=== PATIENT | male | born 1940 | race Caucasian/White ===

== ENCOUNTER 2017-01-14 05:51 | Day surgery (SDC) | payer MEDICARE ==
[2017-01-09 12:00] VITALS: BMI 33.2
[2017-01-14 06:40] LABS: INR 3.6 (<1.1)
[2017-01-14 06:41] LABS: Prothrombin Time 35.3 sec (9.0-12.0)
[2017-01-14] MEDS ORDERED: FUROSEMIDE 10 MG/ML 2 ML VIAL ONE (07:18)
[2017-01-14] MEDS ORDERED: ePHEDrine 50 MG/ML 1 ML AMP ONE (07:18)
[2017-01-14] MEDS ORDERED: PROPOFOL 10 MG/ML 20 ML VIAL IV ONE (07:18)
[2017-01-14] MEDS ORDERED: ROCURONIUM BROMIDE 10 MG/ML 10 ML VIAL IV ONE (07:18)
[2017-01-14] MEDS ORDERED: HEPARIN SODIUM,PORCINE 5,000 UNIT/ML 1 ML VIAL ONE (07:18)
[2017-01-14] MEDS ORDERED: NEOSTIGMINE 1 MG/ML 10 ML VIAL ONE (07:18)
[2017-01-14] MEDS ORDERED: GLYCOPYRROLATE 0.2 MG/ML 2 ML VIAL ONE (07:18)
[2017-01-14] MEDS ORDERED: SUCCINYLCHOLINE CHLORIDE 100 MG/5 ML SYR IV ONE (07:18)
[2017-01-14] MEDS ORDERED: HEPARIN SODIUM 1,000 UNIT/ML VIAL ONE (07:18)
[2017-01-14] MEDS ORDERED: fentaNYL (PF) 50 MCG/ML 2 ML AMP ONE (07:18)
[2017-01-14] MEDS ORDERED: IV FLUID CONTINUATION 1,000 ML IV ONE (07:18)
[2017-01-14] MEDS ORDERED: LIDOCAINE 1% INJ 10MG/ML (20 ML MDV) ONE (07:18)
[2017-01-14] MEDS ORDERED: PROTAMINE SULFATE 10 MG/ML 5 ML VIAL IV ONE (07:18)
[2017-01-14] MEDS ORDERED: MIDAZOLAM 2 MG/2 ML VIAL ONE (07:18)
[2017-01-14] MEDS ORDERED: PHENYLEPHRINE-0.9% NACL SYG 1 MG/10 ML SYRINGE ONE (07:18)
[2017-01-14] MEDS ORDERED: ONDANSETRON 4 MG/2 ML VIAL ONE (07:18)
[2017-01-14] MEDS: LIDOCAINE 2% INJ 20 MG/ML SQ ONE ×2 (08:05→08:06)
[2017-01-14] MEDS ORDERED: LIDOCAINE 2% INJ 20 MG/ML SQ ONE (08:05)
[2017-01-14] MEDS ORDERED: HEPARIN SODIUM (1,000 UNIT/ML) 1,000 UNIT in SODIUM CHLORIDE 0.9% 1,000 ML IRRIGATION ONE (08:22)
[2017-01-14] MEDS ORDERED: HEPARIN SODIUM,PORCINE/D5W PMX 25,000 UNIT in DEXTROSE/WATER 1 500ML.BAG IV ONE (10:23)
[2017-01-14] MEDS ORDERED: SODIUM CHLORIDE 0.9% 1,000 ML IV ONE (10:31)
[2017-01-14] MEDS ORDERED: ACETAMINOPHEN TAB 325 MG TAB PO PRN (13:04)
--- NOTE | 2017-01-14 13:13 | P.PCN ---
Preoperative Diagnosis: Procedure 1. Electrical cardioversion for organized atrial fibrillation 2. Ablation for typical atrial flutter, right atrium 3. Ablation for focal atrial arrhythmia anterior-septal wall, outside the right superior pulmonary vein 4. Ablation for focal atrial arrhythmia on the roof of the left atrium 5. Ablation of focal atrial arrhythmia, posterior wall outside the right-sided pulmonary veins Procedures performed Electrical cardioversion for atrial fibrillation Comprehensive diagnostic EP study CS pacing and recording Drug stimulation Intracardiac echo Left and right transseptal catheterization 3-D mapping of the right atrium Ablation for typical atrial flutter 3-D mapping of the left atrium Ablation of anteroseptal focal atrial arrhythmia Ablation of focal roof tachycardia Ablation of posterior wall atrial arrhythmia outside right pulmonary veins Plan Stop amiodarone Continue anticoagulation lifelong Start flecainide 50 mg twice daily after 4 weeks or discussed with Dr. Walker Antral isolation of the pulmonary veins in the future
[2017-01-14] MEDS ORDERED: ACETAMINOPHEN IV (For NPO) 1,000 MG in EMPTY BAG 1 BAG IVPB ONE (13:45)
[2017-01-14] MEDS ORDERED: TAMSULOSIN 0.4 MG CAP.ER.24H PO ONE (13:45)
--- NOTE | 2017-01-14 14:06 | CE ---
DATE OF SERVICE: Jus Alexis is a 76-year-old male patient of Dr. Becker and Dr. Walker who has an organized atrial arrhythmia that resembled atrial flutter. He is brought in for an atrial flutter ablation and mapping for any other arrhythmias. He has normal LV function. He has obstructive sleep apnea and is now on treatment for it. Patient was brought to the EP lab in a fasting state. Written informed consent was obtained prior to the procedure. The left shoulder areas was prepped and draped as per protocol; 1% Lidocaine was used for local anesthesia. Initially conscious sedation was used with the patient would repeatedly put his hands in the sterile field and therefore general anesthesia had to be used. The right and left groins were reprepped and venous sheaths were placed in the right and left femoral veins. Via these, diagnostic catheters were placed and intracardiac echo catheter and later the long sheath was placed as well as the coronary sinus catheter and high right atrial catheter, HIS bundle and RV catheter. The patient was in irregular atrial tachycardia of a cycle length of about 225 ms, the surface ECG showed organized atrial activity that resembled a flutter-like rhythm, positive in V1. First under anesthesia, electrical cardioversion was performed with a 360 joule biphasic shock and patient was converted to sinus rhythm. This was performed immediately after the coronary sinus was placed. Coronary sinus catheter was placed which demonstrated that this was an irregular atrial tachycardia with a cycle length of roughly about 235 ms. Following that, sinus cycle length of 97 ms, WV interval of 228 ms, QRS 104 ms, QT 500 ms, AH interval 133 ms and HV interval 39 ms. Atrial pacing was performed from the high right atrium as well as from the RV and right ventricle. First 3-D mapping of the right atrium was performed and a cavotricuspid isthmus RF line of block was made. This line was anatomically completed. Isthmus conduction time was 230 to 240 ms. Complete bidirectional block was proven with differential pacing. Following that, a second tachycardia was induced. This had the appearance of organization, the cycle length of approximately 300 ms. Entrainment mapping was performed from the right atrial isthmus and the post-pacing interval was long. In addition, the activation pattern was from the distal coronary sinus to the proximal coronary sinus. Therefore, intracardiac echocardiography was performed, intra-atrial septum was identified and left, right transseptal catheterization was performed. The RA pressure was 16 x 9 x 11 mmHg, ( ) was 36 x 11 x 19 mmHg. Irrigated-tip mapping and ablation catheter was placed in the left atrium and activation mapping was performed. Activation mapping revealed at least 3 areas of early activation which was sequentially ablated. These were 3 distinct areas and were as follows: Ablation of a roof atrial arrhythmia, RF ablation was performed along the area of early activation in the roof. This would result in further organization of the tachycardia, but it was not terminated. A 3-D mapping and RF ablation was performed on the anteroseptal aspect between the right superior pulmonary vein and the transseptal access site. A contact force of about 10 was achieved and a power of between 30 to 40 pena was used. The third atrial arrhythmias was ablated was just outside the right pulmonary veins on the posterior wall. An OG tube was placed in the esophagus and this was greater than 2 cm from the OG tube. RF ablation was also performed here. However, this only resulted in slight lengthening of the tachycardia, but there are P waves of disorganization also. Therefore, patient underwent electrical cardioversion once again. IV heparin was used through the procedure. This was reversed at the end of the procedure, all sheaths were removed and patient was transferred back to telemetry after he was extubated. RESULT: Diagnostic EP study revealed atrial fibrillation. First the patient underwent atrial flutter ablation and then focal ablation of 3 distinct atrial arrhythmia in the left atrium, one along the anterior septum of the LA, one on the roof and the third on the posterior wall of the LAD. Patient tolerated the procedure well without any acute complications. PLAN: Stop oral amiodarone. Patient has a history of emphysema. Next month. I will start him on flecainide 50 mg twice daily as per ( ). Anticoagulation is to continue lifelong, minimize alcohol consumption, continue sleep apnea management and antral isolation of the pulmonary veins and possibly roof line.
--- NOTE | 2017-01-14 14:12 | LTR ---
January 14, 2017 RE: Jus Alexis Dear Carlton; I had the pleasure of seeing Mr. Alexis in electrophysiology followup. Mr. Alexis underwent atrial flutter ablation and ablation of atrial tachycardias in the left atrium; however, he does have atrial fibrillation and I will schedule him for a pulmonary vein isolation procedure in the next 2 months. I also discussed his care with Dr. Walker, who is his primary knowledge management consultant and I would recommend stopping amiodarone since he also has emphysema. Next month, we will start him on low dose flecainide. His LV function is normal. He will also remain on anticoagulation lifelong. In addition, I have suggested that he also minimize his alcohol consumption and continue with sleep apnea treatment with CPAP mask. If you have any questions, please do not hesitate to give me a call. Thank you for entrusting me with the care of your patient. Warm regards. Sincerely, ISABEL GALLEGOS MD
[2017-01-14 14:26] VITALS: RESP 16
[2017-01-14] MEDS: ATENOLOL 50 MG TAB PO ONE ×2 (15:59→17:30)
[2017-01-14] MEDS: HYDROcodone/APAP 5-325MG 1 EACH TAB PO PRN ×2 (16:03→21:48)
[2017-01-14] MEDS: SODIUM CHLORIDE 0.9% 1,000 ML IV SCH (16:03)
[2017-01-14] MEDS ORDERED: LISINOPRIL 10 MG TAB PO SCH (18:30)
[2017-01-14] MEDS: amLODIPine 5 MG TAB PO SCH (21:48)
[2017-01-15] MEDS: SODIUM CHLORIDE 0.9% 1,000 ML IV SCH (04:47)
[2017-01-15 06:53] LABS: INR 3.1 (<1.1); Prothrombin Time 30.1 sec (9.0-12.0)
[2017-01-15 07:58] VITALS: BP 123/68; PULSE 73; TEMP 97.7
--- NOTE | 2017-01-15 08:12 | P.DS ---
Providers Attending physician: Facundo Gillis Primary care physician: [facility] Course: Patient is doing well today. He underwent atrial flutter ablation and ablation of multiple atrial arrhythmias in the left atrium yesterday under general anesthesia did he does have a sore throat. He denies any chest discomfort or undue shortness of breath. He is sitting comfortably in bed eating breakfast Heart sounds are normal Breath sounds are normal Groin is healed well without any hematoma or bleeding Impression Atrial flutter Atrial tachycardia Atrial fibrillation Obstructive sleep apnea Patient had low oxygen levels under anesthesia possibly secondary to lung disease Plan Discontinue amiodarone. This was discussed with the patient, his family as well as Dr. VC Walker His LV function is normal and we will start flecainide 50 mg twice daily after about a month My plan is to proceed with A. fib ablation with cryoablation. He has a large left atrium of about 5.8 cm by intracardiac echo, measurements made from the fossa ovalis to the left-sided veins His pulmonary veins are about 16-18 mm on the right side, each. On the left side he has common veins with a diameter of about 22 mm. Therefore plan to use a 28 mm cryo- balloon. He will remain on anticoagulation lifelong sleep apnea management, minimal alcohol consumption Patient Condition at Discharge: Stable Plan - Discharge Summary Discharge Medication List Lisinopril [Lisinopril] 10 mg PO PC-SUPPER 06/28/15 [History] RX: Atenolol 100 mg PO ONCE 06/28/15 [History] RX: amLODIPine [Norvasc] 5 mg PO BID 01/14/17 [History] Silodosin [Rapaflo] 8 mg PO ONCE 01/14/17 [History] Warfarin Sodium [Coumadin] 2.5 mg PO MOFR 01/14/17 [History] Warfarin Sodium [Coumadin] 5 mg PO SUTUWETHSA 01/14/17 [History] Activity/Diet/Wound Care/Special Instructions: Post EP study - Ablation instructions 1. Keep access sites dry for 2 days. 2. No heavy lifting or straining for 2 days. 3. Avoid bending the hips repeatedly for 2 days. 4. You may go up and down stairs slowly Call if the following is noted 1. Bleeding, increasing swelling or pain at the access sites. 2. Increasing chest discomfort, especially upon taking a deep breath. 3. Increasing shortness of breath, at rest or with exertion. 4. Undue cough / phlegm 5. Difficulty or pain while swallowing. 6. Pain or change in color in the extremities. 7. Fever, chills, rigors. 8. Increasing headache or neurologic symptoms. 9. Dizziness, fainting, palpitations Stop amiodarone completely continue all other medications including warfarin Discharge Disposition: HOME SELF-CARE
[2017-01-15] MEDS: amLODIPine 5 MG TAB PO SCH (08:31)
[2017-01-15] MEDS ORDERED: WARFARIN 5 MG TAB PO SCH (18:00)
[2017-01-24] MEDS ORDERED: WARFARIN 2.5 MG TAB PO SCH (18:00)
== END 2017-01-15 13:33 | disposition home or self-care (01) ==
LOC: CATHEP 05:51 → 3OBS 13:16 → CATHEP 01-15 13:33
PROVIDERS: ATTEND Internal Medicine Clinical Cardiac Electrophysiology
DX: I48.3 Typical atrial flutter (principal); I48.1 Persistent atrial fibrillation; I47.1 Supraventricular tachycardia; Z79.01 Long term (current) use of anticoagulants; I11.0 Hypertensive heart disease with heart failure; I50.30 Unspecified diastolic (congestive) heart failure; G47.33 Obstructive sleep apnea (adult) (pediatric); Z86.711 Personal history of pulmonary embolism; Z99.89 Dependence on other enabling machines and devices; N40.0 Benign prostatic hyperplasia without lower urinary tract symptoms; Q61.01 Congenital single renal cyst; Z79.899 Other long term (current) drug therapy; Z88.5 Allergy status to narcotic agent; Z88.8 Allergy status to other drugs, medicaments and biological substances
CPT/HCPCS: 93462; 93623; 93662; 93613; 93653; 93655 ×2; 85347; 85610 ×2; C1894 ×2; C1769 ×3; C1893 ×2; C1730 ×3; C1759; C1732; J2001 ×2; J2250; J2720; J1644 ×3; J1940; J2710; J2405; J3010; J0131; J2370; J0330; J2704

== ENCOUNTER → 2017-02-06 | Outpatient (CLI) | payer MEDICARE ==
--- NOTE | 2017-02-06 18:20 | PN ---
DATE OF SERVICE: 02/06/2017 This patient is a 77-year-old gentleman who has been followed in the sleep center for treatment of severe obstructive sleep apnea-hypopnea syndrome. Patient continues to use his BiPAP equipment every night without significant problems, except recently he started to develop some dryness in his mouth. He believes that he opens his mouth. His weight is 2 pounds less than during his last visit. Recently patient again developed episodes of atrial fibrillation, had cardiac ablation on January 14, 2017. MEDICATIONS: 1. Flecainide. 2. Symbicort. 3. Amlodipine. 4. Coumadin. 5. Lisinopril. PHYSICAL EXAMINATION: Patient in no distress. VITAL SIGNS: BP 125/81, HR 82, pulse 82, RR 16. Height 5 feet 7 inches. Weight 237. BMI 37.1. Temperature 98.1. Oxygen saturation at room air 95%. HEENT: PERRLA, EOMI. Evaluation of oropharynx showed tongue protrudes midline; extremely low position of soft palate. NECK: Supple. No JVD. Thyroid is not palpable. LUNGS: Clear to percussion and to auscultation. Good air exchange. No wheezing or rhonchi. HEART: S1, S2 sounds regular. ABDOMEN: Obese. EXTREMITIES: No edema. REVIEW MANAGER: Awake, alert, and oriented x3. Cranial nerves 2 to 7 intact. There is no fasciculation or atrophy noted. No focal deficits observed. IMPRESSION: 1. Obstructive sleep apnea-hypopnea syndrome. Patient continues to use BiPAP equipment every night, benefitting from treatment. 2. Obesity; body mass index 37.1. 3. Recent episodes of atrial fibrillation. 4. Status post cardiac ablation on 01/14/17. 5. Hypertension. 6. Hyperlipidemia. 7. Status post bilateral knee replacement. 8. Status post tonsillectomy. PLAN: 1. Continue treatment with BiPAP every night. 2. Prescription for chin strap. 3. Losing weight. 4. Sleep hygiene with regular time in bed for at least 8 hours. 5. Will get reading from his machine. Thank you very much for allowing me to participate in the management of your patient. Sincerely, Damian Ang MD, PhD, FAASM. Diplomat of [employer], Sleep Medicine Board by [employer], [employer]
== END | disposition home or self-care (01) ==
LOC: SLEEP 13:11
PROVIDERS: ATTEND Internal Medicine
DX: G47.33 Obstructive sleep apnea (adult) (pediatric) (principal); E66.9 Obesity, unspecified; Z68.37 Body mass index [BMI] 37.0-37.9, adult; I48.91 Unspecified atrial fibrillation; E78.5 Hyperlipidemia, unspecified; I10 Essential (primary) hypertension; Z79.01 Long term (current) use of anticoagulants; Z79.899 Other long term (current) drug therapy; Z96.653 Presence of artificial knee joint, bilateral; Z98.890 Other specified postprocedural states

== ENCOUNTER 2017-03-17 05:58 | Day surgery (SDC) | payer MEDICARE ==
[2017-03-13 17:43] VITALS: BMI 33.2
[2017-03-17] MEDS ORDERED: MIDAZOLAM 2 MG/2 ML VIAL IV PRN (06:19)
[2017-03-17] MEDS ORDERED: SODIUM CHLORIDE 0.9% 1,000 ML IV SCH (06:19)
[2017-03-17 07:01] LABS: INR 2.3 (<1.1); Prothrombin Time 22.3 sec (9.0-12.0)
[2017-03-17] MEDS ORDERED: PHENYLEPHRINE-0.9% NACL SYG 1 MG/10 ML SYRINGE ONE (07:30)
[2017-03-17] MEDS ORDERED: PROPOFOL 10 MG/ML 20 ML VIAL IV ONE (07:30)
[2017-03-17] MEDS ORDERED: HEPARIN SODIUM 1,000 UNIT/ML VIAL ONE (07:30)
[2017-03-17] MEDS ORDERED: SUCCINYLCHOLINE CHLORIDE VIAL 200 MG/10 ML VIAL IV ONE (07:30)
[2017-03-17] MEDS ORDERED: ISOPROTERENOL 250 MCG/1.25 ML SYR IV ONE (07:30)
[2017-03-17] MEDS ORDERED: FUROSEMIDE 10 MG/ML 2 ML VIAL ONE (07:30)
[2017-03-17] MEDS ORDERED: HEPARIN SODIUM,PORCINE 5,000 UNIT/ML 1 ML VIAL ONE (07:30)
[2017-03-17] MEDS ORDERED: ePHEDrine 50 MG/ML 1 ML AMP ONE (07:30)
[2017-03-17] MEDS ORDERED: MIDAZOLAM 2 MG/2 ML VIAL ONE (07:30)
[2017-03-17] MEDS ORDERED: PROTAMINE SULFATE 10 MG/ML 5 ML VIAL IV ONE (07:30)
[2017-03-17] MEDS ORDERED: fentaNYL (PF) 50 MCG/ML 2 ML AMP ONE (07:30)
[2017-03-17] MEDS ORDERED: LIDOCAINE 1% INJ 10MG/ML (20 ML MDV) ONE (07:30)
[2017-03-17] MEDS ORDERED: LIDOCAINE 2% INJ 20 MG/ML SQ ONE (08:17)
[2017-03-17] MEDS ORDERED: HEPARIN SODIUM,PORCINE/D5W PMX 25,000 UNIT in DEXTROSE/WATER 1 500ML.BAG IV ONE (09:00)
[2017-03-17] MEDS ORDERED: LACTATED RINGERS 1,000 ML IV ONE (10:00)
[2017-03-17] MEDS ORDERED: IOHEXOL 350 MG/ML 100 ML BOTTLE INJ ONE (11:23)
--- NOTE | 2017-03-17 11:43 | P.PCN ---
Preoperative Diagnosis: Procedures performed ([facility] - CRYO Ablation) Invasive hemodynamic monitoring while general anesthesia, right femoral arterial line for monitoring and sampling Comprehensive diagnostic EP study with attempted arrhythmia induction CS pacing and recording Drug infusion Catheter the mapping of the tachycardia (NOT 3D mapping) Intracardiac echocardiography Pulmonary vein isolation with transseptal and comprehensive EPS, [id number] Procedure details Patient was brought to the EP lab in a fasting state. Written informed consent was obtained prior to the procedure. Procedure performed under general anesthesia After initial muscle relaxant use, muscle relaxants were not given thereafter in order to assess phrenic nerve during procedure Patient prepped and draped as per protocol Full cryo-set up with standard preparation of the cryoablation tools done Femoral Venous access obtained on the right and left groins Sheaths placed Diagnostic catheters for the high right atrium, phrenic nerve stimulation and pacing, His bundle, RV and coronary sinus placed Intracardiac echo catheter placed Long sheath placed in the right atrium Left and right transseptal catheterization performed under intracardiac echo guidance Intravenous heparin with aCT above 300 Later, catheter positioning and balloon positioning under intracardiac echo Baseline measurements Sinus cycle length 798 ms, QRS 97 ms, AH 103 ms HV 73 ms Comprehensive diagnostic EP study with drug infusion Atrial pacing performed from the high right atrium and the coronary sinus, RV pacing from the mid RV septum AV node Wenckebach block less than 300, VA Wenckebach block 390 ms AV node Wenckebach block via coronary sinus 350 ms Transseptal catheterization performed RA pressure 18/8/11 LA pressure is 26/9/18 Transseptal catheterization performed with standard sheath. The cryoablation sheath was then placed with an over the wire exchange without any acute complications. All 4 pulmonary veins were isolated in the following sequence: Left superior followed by left inferior followed by right superior followed by right inferior The cryo-ablation balloon was placed at the os of each vein 1.5 mL of IV dye was injected to confirm an occluded vein Goal during cryoablation was to achieve -30C in the first 30 seconds. If not the balloon was repositioned to obtain this result After completion of Cryoblation with durations from 180-240 seconds, entrance block was confirmed with the Attain circular catheter in a roving fashion around the antrum of the pulmonary veins Phrenic nerve pacing was performed from the SVC, right innominate vein area and diaphragm voltage was monitored as well as manually Total amount of dye 60 mL Left superior pulmonary vein First cryoablation Duration of cryoablation lesion 180 -30C achieved at 28 seconds -40C achieved at 86 seconds Minimum temperature achieved -43C Thaw time 4.9 seconds Second cryoablation Duration of cryoablation lesion 180 -30C achieved at 30 -40C achieved at 54 seconds Minimum temperature achieved and is 55C Thaw time 14 seconds Vein isolated, yes Left inferior pulmonary vein First cryoablation Duration of cryoablation lesion 180 seconds -30C achieved at 34 -40C achieved at 123 Minimum temperature achieved -41C Thaw time 4 seconds Repeat cryo of 120 seconds duration. Prematurely terminated since -40C not achieved Third cryoablation Duration of cryoablation lesion 180 seconds -30C achieved at 34 -40C achieved at 56 seconds Minimum temperature achieved -54C Thaw time 20 seconds Vein isolated yes Right superior pulmonary vein, during phrenic nerve pacing Single cryoablation Duration of cryoablation lesion to 140 seconds -30C achieved at 25 seconds -40C achieved at 34 seconds Minimum temperature achieved -62C Thaw time 21 seconds Vein isolated yes Also a middle vein that was simultaneously ablated and isolated Right inferior pulmonary vein, during phrenic nerve pacing First cryoablation Duration of cryoablation lesion 60 seconds prematurely terminated Suboptimal drop in temperature Second cryoablation Duration of cryoablation lesion 240 seconds -30C achieved at 34 seconds -40C achieved at 70 seconds Minimum temperature achieved -46C Thaw time 9 seconds Vein isolated yes Patient came in atrial tachycardia, slow atrial tachycardia this terminated after this cryoablation and he was in sinus rhythm At the end of the procedure the Achieve catheter was once again used to check for entrance block Phrenic nerve stimulation was performed to confirm diaphragmatic stimulation the end of the procedure Cine fluoroscopy was performed at the very end of the procedure to confirm movement of both diaphragms with inspiration and expiration At the end of the procedure the patient was extubated Heparin was reversed Venous sheaths were removed and hemostasis assured Result Successful pulmonary vein isolation using cryo-ablation Complete entrance block in all 4 veins confirmed No evidence for phrenic nerve injury Temperature monitoring performed for the left-sided esophagus, lowest temperature was never below 34C Anesthesia: GETA Condition: stable Disposition: floor
[2017-03-17] MEDS ORDERED: ACETAMINOPHEN TAB 325 MG TAB PO PRN ×2 (11:44→16:55)
[2017-03-17] MEDS ORDERED: HYDROcodone/APAP 5-325MG 1 EACH TAB PO PRN (11:44)
[2017-03-17] MEDS ORDERED: ACETAMINOPHEN IV (For NPO) 1,000 MG in EMPTY BAG 1 BAG IVPB ONE (15:00)
[2017-03-17 15:56] LABS: Glucose,Whole Blood 97 mg/dL (75-99)
[2017-03-17] MEDS ORDERED: WARFARIN 2.5 MG TAB PO SCH (18:00)
[2017-03-17] MEDS ORDERED: LISINOPRIL 10 MG TAB PO SCH (18:30)
[2017-03-17 19:11] VITALS: RESP 18
[2017-03-17] MEDS: LACTATED RINGERS 1,000 ML IV SCH (22:04)
[2017-03-17] MEDS ORDERED: TAMSULOSIN 0.4 MG CAP.ER.24H PO SCH (22:15)
[2017-03-17] MEDS: amLODIPine 5 MG TAB PO SCH (22:19)
[2017-03-18] MEDS: LACTATED RINGERS 1,000 ML IV SCH (05:33)
[2017-03-18 06:38] LABS: CH 31.6; CHCM 33.7; HCT 43.7 % (39.0-53.0); HGB 14.2 gm/dL (13.0-17.5); MCH 30.6 pg (25.0-35.0); MCHC 32.5 g/dL (31.0-37.0); MCV 94.2 fL (80.0-100.0); Mean Platelet Volume 6.4; RBC 4.64 m/uL (4.30-5.90); RDW 13.3 % (11.5-15.5); WBC 6.6 k/uL (3.8-10.6)
[2017-03-18 06:51] LABS: INR 2.5 (<1.1); Prothrombin Time 23.9 sec (9.0-12.0)
[2017-03-18] MEDS ORDERED: ATENOLOL 50 MG TAB PO SCH (09:00)
[2017-03-18] MEDS: amLODIPine 5 MG TAB PO SCH (09:15)
--- NOTE | 2017-03-18 12:50 | DS ---
DATE OF ADMISSION: 03/17/2017 DATE OF DISCHARGE: Mr. Alexis is doing well post atrial fibrillation. He underwent cryoablation of the pulmonary veins. He came in with an atrial tachycardia and when the right inferior vein was isolated, the atrial tachycardia terminated and he went back to sinus rhythm. He has done very well since. He has a mildly prolonged AL interval on 12-lead ECG, but otherwise ECG is normal. He had a little sore throat yesterday, but has no throat pain today. No chest discomfort. No breathing trouble. No dizziness, lightheadedness. No palpitations. His telemetry strips are normal overnight. The 12-lead ECG today is normal. Blood pressure is normal, 130/67 mmHg, pulse rate is in the 70s. He is afebrile, 98.4 degrees Fahrenheit. Head and neck examination is normal. Heart sounds are normal. Breath sounds are normal. No rhonchi. No crackles. Extremities are warm, no edema. IMPRESSION: 1. History of atrial flutter. 2. History of atrial fibrillation and atrial tachycardia, status post successful cryoablation and termination of atrial tachycardia during cryoablation of the right inferior vein. 3. Hypertension. 4. Mildly prolonged AL. 5. Intolerance to antiarrhythmic drugs such as even low dose flecainide. PLAN: Stop flecainide completely. Continue anticoagulation. Continue beta blockers. Follow with Dr. Walker in a week's time.
[2017-03-18 13:01] VITALS: BP 116/68; PULSE 73; TEMP 98.9
[2017-03-18] MEDS ORDERED: WARFARIN 5 MG TAB PO SCH (18:00)
== END 2017-03-18 14:48 | disposition home or self-care (01) ==
LOC: CATHEP 05:58 → 6SEL 11:15 → CATHEP 03-18 14:48
PROVIDERS: ATTEND Internal Medicine Clinical Cardiac Electrophysiology
DX: I47.1 Supraventricular tachycardia (principal); I48.0 Paroxysmal atrial fibrillation; I48.92 Unspecified atrial flutter; Z79.01 Long term (current) use of anticoagulants; I10 Essential (primary) hypertension; Z79.899 Other long term (current) drug therapy; Z88.5 Allergy status to narcotic agent; Z88.8 Allergy status to other drugs, medicaments and biological substances
CPT/HCPCS: 85347; 93623 ×2; 93662 ×2; 93609 ×2; 93656 ×2; 84132; 85027; 85610 ×2; C1894 ×3; C1769 ×2; C1730 ×4; C1759; C1893; C1733; C1766; J2001 ×2; J2250; J0330; J2720; J1644 ×3; J1940; Q9967; J3010; J2370; J2704

== ENCOUNTER → 2017-04-03 | Outpatient (CLI) | payer MEDICARE ==
--- NOTE | 2017-04-03 16:00 | PN ---
DATE OF SERVICE: 04/03/2017 This patient is a 77-year-old gentleman who has been followed in the sleep center for treatment of obstructive sleep apnea-hypopnea syndrome. I saw this patient 3 months ago. At that time he had problems with usage of the machine related to opening his mouth, dryness in the mouth and awakenings. Chin strap was added. He does not have any problem at present with using his BiPAP machine. I checked his BiPAP unit. Pressure is 13/9 cm of water. Patient demonstrated 100% compliance with usage of the machine for more than 4 hours 30 out of 30 nights. Average usage per night is 8.6 hours. Leak is up to 13 L/minute, which is acceptable. Total apnea-hypopnea index is 2.1 for the last month, which is normal. Recently patient had cardiac ablation for atrial fibrillation and flutter. MEDICATIONS: 1. Atenolol. 2. Amlodipine. 3. Lisinopril. 4. Warfarin. 5. Tamsulosin. [place] Sleepiness Scale is 4. PHYSICAL EXAMINATION: Patient in no distress. VITAL SIGNS: BP 142/82, HR 72, RR 16. Height 5 feet 7 inches. Weight 234. BMI 36.6. Temperature 98.2. Oxygen saturation at room air 95%. HEENT: PERRLA, EOMI. Evaluation of oropharynx showed tongue protrudes midline; low position of soft palate. NECK: Supple. No JVD. Thyroid is not palpable. LUNGS: Clear to percussion and to auscultation. Good air exchange. No wheezing or rhonchi. HEART: S1, S2 regular. No murmurs, gallops or rubs. ABDOMEN: Slightly obese. EXTREMITIES: No clubbing or cyanosis. PROFESSOR OF LAW: Awake, alert, and oriented x3. Cranial nerves 2 to 7 intact. There is no fasciculation or atrophy noted. No focal deficits observed. IMPRESSION: 1. Obstructive sleep apnea/hypopnea syndrome, under control with BiPAP at 13/9 cm of water. Patient demonstrated 100% compliance with treatment, benefiting from treatment. No problem with treatment at the present time. 2. Obesity. 3. Hypertension. 4. Hyperlipidemia. 5. History of atrial flutter and atrial fibrillation, status post cardiac ablation. Regular heart tones at present. 6. Status post bilateral knee replacement. 7. Status post tonsillectomy. PLAN: 1. Patient will continue to use BiPAP equipment every night for the whole night. 2. Continue losing weight. Patient has lost 3 pounds since his previous visit. 3. Sleep hygiene with regular time in bed for at least 8 hours. 4. No driving if feeling any sleepiness. 5. Follow-up visit in one year; earlier if patient has any problems. Thank you very much for allowing me to participate in the management of your patient. Sincerely, Damian Ang MD, PhD, FAASM. Diplomat of [place] [employer], Sleep Medicine Board by [employer], [place] [employer]
== END | disposition home or self-care (01) ==
LOC: SLEEP 13:08
PROVIDERS: ATTEND Internal Medicine
DX: G47.33 Obstructive sleep apnea (adult) (pediatric) (principal); E66.9 Obesity, unspecified; Z68.36 Body mass index [BMI] 36.0-36.9, adult; I10 Essential (primary) hypertension; E78.5 Hyperlipidemia, unspecified; Z79.899 Other long term (current) drug therapy; Z79.01 Long term (current) use of anticoagulants

== ENCOUNTER 2018-01-01 06:46 | Day surgery (SDC) | payer MEDICARE ==
[2017-12-30 09:04] VITALS: BMI 33.2
[2018-01-01 07:28] LABS: Basophils # (A) 0.1 k/uL (0-0.2); Basophils % (A) 1 %; Eosinophils # (A) 0.4 k/uL (0-0.7); Eosinophils % (A) 8 %; HCT 49.1 % (39.0-53.0); HGB 15.9 gm/dL (13.0-17.5); Lymphocytes # (A) 1.2 k/uL (1.0-4.8); Lymphocytes % (A) 22 %; MCH 29.8 pg (25.0-35.0); MCHC 32.3 g/dL (31.0-37.0); MCV 92.1 fL (80.0-100.0); Mean Platelet Volume 6.7; Monocytes # (A) 0.4 k/uL (0-1.0); Monocytes % (A) 8 %; Neutrophils # (A) 3.2 k/uL (1.3-7.7); Neutrophils % (A) 60 %; Platelet Count 209 k/uL (150-450); RBC 5.33 m/uL (4.30-5.90); RDW 13.1 % (11.5-15.5); WBC 5.3 k/uL (3.8-10.6)
[2018-01-01 07:36] LABS: INR 2.6 (<1.2); Prothrombin Time 23.5 sec (9.0-12.0)
[2018-01-01 07:42] LABS: Anion Gap 13 mmol/L; Blood Urea Nitrogen 14 mg/dL (9-20); Calcium 9.3 mg/dL (8.4-10.2); Carbon Dioxide 25 mmol/L (22-30); Chloride 106 mmol/L (98-107); Glucose 107 mg/dL (74-99); Potassium 3.9 mmol/L (3.5-5.1); Sodium 144 mmol/L (137-145)
[2018-01-01] MEDS ORDERED: PHENYLEPHRINE-0.9% NACL SYG 1 MG/10 ML SYRINGE ONE (08:02)
[2018-01-01] MEDS ORDERED: HEPARIN SODIUM,PORCINE 10,000 UNIT/ML 1 ML VIAL ONE (08:02)
[2018-01-01] MEDS ORDERED: ISOPROTERENOL 250 MCG/1.25 ML SYR IV ONE (08:02)
[2018-01-01] MEDS ORDERED: MIDAZOLAM 2 MG/2 ML VIAL ONE (08:02)
[2018-01-01] MEDS ORDERED: PROPOFOL 10 MG/ML 20 ML VIAL IV ONE ×2 (08:02)
[2018-01-01] MEDS ORDERED: NEOSTIGMINE 1 MG/ML 10 ML VIAL ONE (08:02)
[2018-01-01] MEDS ORDERED: VECURONIUM 10 MG VIAL IV ONE (08:02)
[2018-01-01] MEDS ORDERED: FUROSEMIDE 10 MG/ML 2 ML VIAL ONE (08:02)
[2018-01-01] MEDS ORDERED: GLYCOPYRROLATE 0.2 MG/ML 2 ML VIAL ONE (08:02)
[2018-01-01] MEDS ORDERED: PROTAMINE SULFATE 10 MG/ML 5 ML VIAL IV ONE (08:02)
[2018-01-01] MEDS ORDERED: fentaNYL (PF) 50 MCG/ML 2 ML AMP ONE (08:02)
[2018-01-01] MEDS ORDERED: SODIUM CHLORIDE 0.9% 1,000 ML IV ONE (08:04)
[2018-01-01] MEDS ORDERED: LIDOCAINE 2% INJ 20 MG/ML SQ ONE (08:40)
[2018-01-01] MEDS ORDERED: HEPARIN SOD,PORK IN 0.45% NACL 25,000 UNIT in 0.45% NACL 1 500ML.BAG IV ONE (08:45)
[2018-01-01] MEDS ORDERED: HEPARIN SODIUM (1,000 UNIT/ML) 1,000 UNIT in SODIUM CHLORIDE 0.9% 1,000 ML IRRIGATION ONE (10:00)
[2018-01-01] MEDS ORDERED: ACETAMINOPHEN TAB 325 MG TAB PO PRN (13:18)
[2018-01-01] MEDS ORDERED: HYDROcodone/APAP 5-325MG 1 EACH TAB PO PRN (13:18)
[2018-01-01] MEDS ORDERED: LACTATED RINGERS 1,000 ML IV ONE (13:32)
[2018-01-01] MEDS ORDERED: ACETAMINOPHEN IV (For NPO) 1,000 MG in EMPTY BAG 1 BAG IVPB ONE (15:00)
--- NOTE | 2018-01-01 16:48 | P.PCN ---
Preoperative Diagnosis: Indication for the procedure 77-year-old male patient who presented with an atrial tachycardia following pulmonary vein isolation about 10-12 months back Symptomatic, RVR despite antiarrhythmic drug therapy failed antiarrhythmic drug therapy Procedures performed Hemodynamic monitoring and sampling via left femoral arterial cannula/sheaths Compressive diagnostic EP study with attempted arrhythmia induction CS pacing and recording Programmed stimulation following Isuprel Intracardiac echo Left right transseptal catheterization 3-D mapping PVI Atrial flutter ablation, right atrium, counterclockwise Focal atrial tachycardia ablation left atrium Procedure details Patient was brought to the EP lab in a fasting state. Written informed consent was obtained prior to the procedure. Both groins were prepped and draped as a protocol. 2 venous sheaths in the right femoral vein 1 venous sheaths in the left femoral veins 1 femoral arterial sheath in the femoral artery Diagnostic catheters and the high right atrium coronary sinus His bundle RV Pentaray mapping catheter in the right atrium, coronary sinus and left atrium Mapping and ablation catheter in the right atrium and in the left atrium Patient was in the tachycardia at start of the study tachycardia cycle length 230 ms, upright T waves in lead V1 him a upright in inferior leads Eccentric activation pattern in the coronary sinus Intracardiac echocardiography performed. 3-D mapping of the right atrium tricuspid valve he will tricuspid isthmus and left atrium performed Activation 3-D mapping of the right atrium performed Entrainment mapping from the right atrial isthmus, post-pacing interval at different cycle lengths performed, PPI minus TCL about 50 ms Consistent with atrial flutter Scar map of the isthmus revealed recovery of old age A complete RF line of block was made Interrogated at 100%. No anatomic gap in the RF line Increase in cycle length about 270-280 ms consistent with 2 simultaneous atrial tachycardias Repeat 3-D mapping of the right atrium and the coronary sinus revealed an early broad septal activation, consistent with a left atrial tachycardia. Activation in the Coronary sinus was late. Left and right transseptal catheterization performed Right atrial pressures 13/10/11 mmHg Left atrial pressures 24/3/12 mmHg Activation mapping of the left atrium performed with a Pentaray catheter Small,bur broad earliest activation outside the left atrial appendage along the anterior border. The left atrial appendage was carefully mapped to exclude reentry. There was no evidence for reentry in the roof or on the mitral annulus. Interrogated with conventional techniques. This was earlier in the earliest CS electrograms by about 118 ms. Fractionated signal did RF ablation at the site resulted in abrupt termination. RF ablation applied along all the early sites with good contact force, 25-30 W temperature Patient was in sinus rhythm thereafter 3-D mapping of the pulmonary veins performed. Voltage map performed in the pulmonary veins Exit block confirmed in all veins Noted in the right inferior pulmonary vein posteriorly at and just below the wilfredo Pulmonary vein isolation completed, RF ablation 25 W good contact force Complete isolation of the vein achieved EP testing performed on and off Isuprel Sinus node recovery times at 605 100 ms were 1106 and 1192 ms. Corresponding corrected sinus node recovery times normal AV node Wenckebach block for 90 ms Burst stimulation from the coronary sinus 500 down to 250 ms On Isuprel AV node Wenckebach block improved to 270 ms. VA Wenckebach block 310 ms No atrial fibrillation or atrial tachycardia or atrial flutter induced with rapid atrial pacing and burst pacing Result Typical atrial flutter and simultaneous focal atrial tachycardia outside the anterior border of the left atrial appendage Pulmonary vein isolation, successful Anesthesia: GETA Disposition: observation
[2018-01-01] MEDS ORDERED: ATENOLOL 50 MG TAB PO STA (17:20)
[2018-01-01] MEDS: SODIUM CHLORIDE 0.9% 1,000 ML IV SCH (17:48)
[2018-01-01] MEDS: LACTATED RINGERS 1,000 ML IV SCH (17:48)
[2018-01-01] MEDS ORDERED: WARFARIN 7.5 MG TAB PO SCH (18:00)
[2018-01-01] MEDS ORDERED: LISINOPRIL 10 MG TAB PO SCH (18:30)
[2018-01-01] MEDS: amLODIPine 5 MG TAB PO SCH (20:09)
[2018-01-01] MEDS ORDERED: TAMSULOSIN 0.4 MG CAP.ER.24H PO SCH (21:00)
[2018-01-01] MEDS ORDERED: BENZOCAINE/MENTHOL LOZENG 1 EACH LOZENGE MUCOUS MEM PRN (21:55)
[2018-01-02] MEDS: SODIUM CHLORIDE 0.9% 1,000 ML IV SCH (05:05)
[2018-01-02] MEDS: LACTATED RINGERS 1,000 ML IV SCH (05:05)
[2018-01-02 07:51] VITALS: RESP 16
--- NOTE | 2018-01-02 07:58 | P.DS ---
Providers Attending physician: Facundo Gillis Primary care physician: [facility] Course: Patient is doing well. No chest discomfort no pleuritic pain no dizziness lightheadedness or palpitations. On telemetry his heart rate is about 90 beats a minute sinus rhythm ECG was reviewed no ST segment abnormalities On examination temperature 97.3F, normal respirations, lying in bed comfortably and sitting up at the edge of the bed comfortably. Blood pressure 118/67 mmHg No JVD Normal heart sounds normal S1 normal S2 Breath sounds are clear no rhonchi no crackles Abdomen soft nontender Extent is warm edema Grams of he did well no hematoma no swelling no pain Twelve-lead ECG reviewed. Sinus mechanism ,90 beats a minute no ST segment abnormalities normal [place] Impression Persistent atrial tachycardia, Drug refractory, extrapulmonary 3-D mapping revealed simultaneous atrial flutter right atrium as well as focal left atrial tachycardia from the anterior wall just outside the left atrial appendage Re conduction posterior wall right inferior pulmonary vein Status post ablation, termination of atrial flutter, termination of atrial tachycardia and complete isolation of pulmonary veins through exit block in all 4 veins Hypertension Dilated left atrium Plan Continue antihypertensive therapy, continue anticoagulation and follow with Dr. Walker in 1 week Procedures performed PVI Atrial flutter ablation, typical Focal atrial tachycardia ablation left atrium anterior wall outside left atrial appendage Plan - Discharge Summary Discharge Rx Participant: No New Discharge Prescriptions: No Action Atenolol 100 mg PO QAM Lisinopril [Lisinopril] 10 mg PO PC-SUPPER amLODIPine [Norvasc] 5 mg PO BID Warfarin Sodium [Coumadin] 7.5 mg PO TH Warfarin Sodium [Coumadin] 5 mg PO SUMOTUWEFRSA Tamsulosin [Flomax] 0.4 mg PO HS Cholecalciferol (Vitamin D3) [Vitamin D3] 5,000 unit PO MOWESA Discharge Medication List Atenolol 100 mg PO QAM 06/28/15 [History] Lisinopril [Lisinopril] 10 mg PO PC-SUPPER 06/28/15 [History] Warfarin Sodium [Coumadin] 5 mg PO SUMOTUWEFRSA 01/14/17 [History] Warfarin Sodium [Coumadin] 7.5 mg PO TH 01/14/17 [History] amLODIPine [Norvasc] 5 mg PO BID 01/14/17 [History] Tamsulosin [Flomax] 0.4 mg PO HS 03/17/17 [History] Cholecalciferol (Vitamin D3) [Vitamin D3] 5,000 unit PO MOWESA 12/30/17 [History ] Follow up Appointment(s)/Referral(s): Jacqui Walker MD [STAFF PHYSICIAN] - 1 Week Activity/Diet/Wound Care/Special Instructions: Keep groins dry for one day only. Patient may take a bath thereafter. Avoid lifting heavy weights greater than 10 pounds for the next 2 days. No restriction to ambulation follow-up with Dr. Walker in one week No changes in medications Continue anticoagulation
[2018-01-02] MEDS ORDERED: ATENOLOL 50 MG TAB PO SCH (09:00)
[2018-01-02] MEDS: amLODIPine 5 MG TAB PO SCH (09:04)
[2018-01-02 11:44] VITALS: BP 126/61; PULSE 86; TEMP 98.5
[2018-01-02] MEDS ORDERED: WARFARIN 5 MG TAB PO SCH (18:00)
== END 2018-01-02 13:15 | disposition home or self-care (01) ==
LOC: CATHEP 06:46 → 3OBS 12:38 → CATHEP 01-02 13:15
PROVIDERS: ATTEND Internal Medicine Clinical Cardiac Electrophysiology
DX: I47.1 Supraventricular tachycardia (principal); I48.92 Unspecified atrial flutter; I49.3 Ventricular premature depolarization; I48.1 Persistent atrial fibrillation; I11.0 Hypertensive heart disease with heart failure; I50.9 Heart failure, unspecified; Z86.711 Personal history of pulmonary embolism; G72.0 Drug-induced myopathy; R82.1 Myoglobinuria; E78.5 Hyperlipidemia, unspecified; I25.10 Atherosclerotic heart disease of native coronary artery without angina pectoris; Z79.01 Long term (current) use of anticoagulants; Z79.899 Other long term (current) drug therapy; Z88.5 Allergy status to narcotic agent; Z88.8 Allergy status to other drugs, medicaments and biological substances
CPT/HCPCS: 93462; 93623; 93662; 93613; 93653; 93655; 80048; 85025; 85610; C1894 ×2; C1769 ×3; C1730; C1731; C1759; C1893; C1732; J2001; J2250; J2720; J1644 ×3; J1940; J2710; J3010; J2370; J2704

== ENCOUNTER → 2018-05-07 | Outpatient (CLI) | payer MEDICARE ==
--- NOTE | 2018-05-07 16:34 | PN ---
PROGRESS NOTE DATE OF SERVICE: 05/07/2018 78-year-old gentleman has been followed in [facility] for treatment of obstructive sleep apnea-hypopnea syndrome. The patient continued to use his BiPAP equipment every night, but does not have problem with the mask or machine. Receiving his supplies and time. [place] Sleepiness Scale today is 3. I checked his BiPAP unit. BiPAP pressure is 13/9 cm of water. Usage is 100% of the time more than 4 hours, average 8.7 hours. Leak is 18 L/minutes which is normal range. Apnea-hypopnea index only 2.4, which is perfect. The patient had cardiac ablation for cardiac arrhythmia in December of 2017. MEDICATIONS: Warfarin, amlodipine, lisinopril, atenolol, . PHYSICAL EXAM: Patient in no distress. BP 125/70, HR 73, RR 18, height 5 feet 7 inches, weight 229.0, BMI 35.8. Weight is 8 pounds less than 1 year ago, which is positive changes. Oxygen saturation room air 97%. Oropharynx extremely low position of soft palate. Extremities 1+ bilateral ankle edema. Neck Supple, no JVD. Thyroid is not palpable. LUNGS Clear to percussion and to auscultation. Good air exchange. No wheezing or rhonchi. HEART S1, S2 regular. No murmurs, gallops, or rubs. ABDOMEN Soft and nontender. Bowel sounds are present. No organomegaly appreciated. EXTREMITIES: No clubbing or cyanosis. 1+ bilateral ankle edema. CHARGE HISTOTECHNOLOGIST Awake, alert, and oriented X3. Cranial nerves 2 to 7 intact. There is no fasciculation or atrophy. noted. No focal deficits observed. IMPRESSION: 1. Obstructive sleep apnea-hypopnea syndrome. The patient demonstrated 100% compliance with treatment benefitting from treatment. Normal respiration on BiPAP. 2. Obesity. 3. History of cardiac arrhythmias status post last cardiac ablation procedure in December 2017. 4. Hypertension. 5. Hyperlipidemia. 6. Status post bilateral knee replacement. 7. Status post tonsillectomy. PLAN: 1. Patient will continue to use BiPAP equipment every night for the whole night. 2. We will maintain prescription for all necessary BiPAP equipment including mask, tube, filters. 3. Continue losing weight. 4. Sleep hygiene with regular time in bed for at least 8 hours. 5. No driving if feeling sleepiness. Thank you very much for allowing me to participate in management of your patient. Sincerely, Damian Ang MD, PhD, FAASM Diplomat of [place] [employer] [place] [employer] [place] [facility] [place] EHSAN / ELIDIA: [id number] /
== END | disposition home or self-care (01) ==
LOC: SLEEP 14:50
PROVIDERS: ATTEND Internal Medicine
DX: G47.33 Obstructive sleep apnea (adult) (pediatric) (principal); E66.9 Obesity, unspecified; I10 Essential (primary) hypertension; E78.5 Hyperlipidemia, unspecified; Z98.890 Other specified postprocedural states; Z99.89 Dependence on other enabling machines and devices; Z96.653 Presence of artificial knee joint, bilateral; Z86.79 Personal history of other diseases of the circulatory system; Z68.35 Body mass index [BMI] 35.0-35.9, adult; Z79.01 Long term (current) use of anticoagulants; Z79.899 Other long term (current) drug therapy

== ENCOUNTER 2018-07-14 14:38 | Inpatient (IN) | payer MEDICARE ==
[2018-07-14] MEDS ORDERED: DILTIAZEM DRIP BOLUS FROM BAG 1 MG SOLN IV ONE (15:07)
--- NOTE | 2018-07-14 15:12 | ED ---
General Adult HPI - General Chief complaint: Arrhythmia/Palpitations Stated complaint: racing heart-sent by Dr. Becker Time Seen by Provider: 07/14/18 15:03 Source: patient, RN notes reviewed Mode of arrival: wheelchair Limitations: no limitations - History of Present Illness Initial comments: Patient is a pleasant 78-year-old male presenting to the emergency department with fatigue. Symptoms have been occurring for the past few days. Patient feels fatigued and achy all over. Patient does admit to having some dyspnea only with exertion. Patient denies chest pain. Occasional palpitations. Patient does have a known history of atrial fibrillation. - Related Data Home Medications Medication Instructions Recorded Confirmed Lisinopril 10 mg PO HS 06/28/15 07/14/18 Warfarin Sodium [Coumadin] 5 mg PO MOTUTHFRSA 01/14/17 07/14/18 Warfarin Sodium [Coumadin] 7.5 mg PO SUWE 01/14/17 07/14/18 Tamsulosin [Flomax] 0.4 mg PO HS 03/17/17 07/14/18 Acetaminophen-Codeine 300-30mg 1 tab PO BID PRN 07/14/18 07/14/18 [Tylenol w/codeine #3] Atenolol [Tenormin] 50 mg PO BID 07/14/18 07/14/18 Naproxen Sodium [Aleve] 220 mg PO ONCE PRN 07/14/18 07/14/18 amLODIPine BESYLATE [Norvasc] 10 mg PO BID 07/14/18 07/14/18 Allergies Allergy/AdvReac Type Severity Reaction Status Date / Time flecainide Allergy severe Verified 07/14/18 16:01 weakness morphine Allergy Hallucinations/FELT Verified 07/14/18 16:01 LIKE BUGS CRAWLING" oxycodone Allergy Nausea Verified 07/14/18 16:01 pentazocine lactate Allergy Nausea & Verified 07/14/18 16:01 [From Kristopher] Vomiting [id number] Reductase AdvReac severe Verified 07/14/18 16:01 Inhibitor muscle cramps & pain Review of Systems ROS Statement: Those systems with pertinent positive or pertinent negative responses have been documented in the HPI. ROS Other: All systems not noted in ROS Statement are negative. Constitutional: Denies: fever Eyes: Denies: eye pain ENT: Denies: ear pain Respiratory: Reports: dyspnea (On exertion). Denies: cough Cardiovascular: Reports: palpitations (Occasional palpitations over the past several days). 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 History of Any Multi-Drug Resistant Organisms: None Reported Past Surgical History: Ablation, Joint Replacement, Tonsillectomy Additional Past Surgical History / Comment(s): GAEL. KNEE REPLACEMENT, CIRCUMCISION,HEMORRHOIDECTOMY, LEFT MIDDLE FINGER, RIGHT AND LEFT KNEE ARTHROTOMY, CANCEROUS LESION REMOVED FROM BUTTOCKS, cardiac ablation. See Dr. Gillis's H & P. Past Anesthesia/Blood Transfusion Reactions: Postoperative Nausea & Vomiting ( PONV) Additional Past Anesthesia/Blood Transfusion Reaction / Comment(s): Hx. of N/V. Past Psychological History: No Psychological Hx Reported Smoking Status: Never smoker Past Alcohol Use History: Rare Past Drug Use History: None Reported - Past Family History Sister(s) Family Medical History: Cancer Additional Family Medical History / Comment(s): BREAST PRE CANCER Father Family Medical History: Cancer Additional Family Medical History / Comment(s): SKIN CANCER General Exam Limitations: no limitations General appearance: alert, in no apparent distress Head exam: Present: atraumatic Eye exam: Present: normal appearance, PERRL ENT exam: Present: normal oropharynx Neck exam: Present: normal inspection Respiratory exam: Present: normal lung sounds bilaterally Cardiovascular Exam: Present: tachycardia, irregular rhythm Expanded Peripheral pulses: 2+: Radial (R), Radial (L), Dorsalis Pedis (R), Dorsalis Pedis (L) GI/Abdominal exam: Present: soft. Absent: distended, tenderness Extremities exam: Present: normal inspection. Absent: pedal edema, calf tenderness Neurological exam: Present: alert. Absent: motor sensory deficit Psychiatric exam: Present: normal affect, normal mood Skin exam: Present: normal color Course Vital Signs 07/14/18 07/14/18 07/14/18 14:42 15:38 15:54 Temperature 98.3 F Pulse Rate 177 H 83 84 Respiratory 18 18 18 Rate Blood Pressure 127/80 108/61 110/64 O2 Sat by Pulse 98 96 97 Oximetry 07/14/18 16:22 Temperature Pulse Rate 84 Respiratory 18 Rate Blood Pressure 118/66 O2 Sat by Pulse 97 Oximetry - Reevaluation(s) Reevaluation #1: 07/14/18 17:11 There is concern for urinary tract infection. Patient does not meet sepsis criteria as elevated heart rate is related to atrial fibrillation. EKG Findings - EKG Comments: EKG Findings:: A. fib with RVR, rate 145. QRS 70. QT 284. QTC 441. Left axis. Inferior Q waves. No acute ST change. Medical Decision Making - Medical Decision Making Patient reevaluated and resting comfortably in bed. Heart rate has converted with Cardizem. Chest x-ray concerning for some CHF. Patient does admit to having some dysuria. Patient updated on results and plan. Case custody in detail with Dr. Falcon, who will admit for Dr. Becker. He did come evaluate the patient in the emergency department. - Lab Data Result diagrams: 07/14/18 15:10 07/14/18 15:10 Lab Results 07/14/18 07/14/18 07/14/18 Range/Units 15:10 15:10 15:10 WBC 10.1 (3.8-10.6) k/uL RBC 5.03 (4.30-5.90) m/uL Hgb 14.7 (13.0-17.5) gm/dL Hct 44.4 (39.0-53.0) % MCV 88.3 (80.0-100.0) fL MCH 29.2 (25.0-35.0) pg MCHC 33.0 (31.0-37.0) g/dL RDW 12.1 (11.5-15.5) % Plt Count 349 (150-450) k/uL Neutrophils % 83 % Lymphocytes % 7 % Monocytes % 7 % Eosinophils % 1 % Basophils % 0 % Neutrophils # 8.4 H (1.3-7.7) k/uL Lymphocytes # 0.7 L (1.0-4.8) k/uL Monocytes # 0.7 (0-1.0) k/uL Eosinophils # 0.1 (0-0.7) k/uL Basophils # 0.0 (0-0.2) k/uL PT (9.0-12.0) sec INR (<1.2) APTT (22.0-30.0) sec Sodium 140 (137-145) mmol/L Potassium 4.6 (3.5-5.1) mmol/L Chloride 106 (98-107) mmol/L Carbon Dioxide 22 (22-30) mmol/L Anion Gap 12 mmol/L BUN 22 H (9-20) mg/dL Creatinine 0.70 (0.66-1.25) mg/dL Est GFR (CKD-EPI)AfAm >90 (>60 ml/min/1.73 sqM) Est GFR (CKD-EPI)NonAf >90 (>60 ml/min/1.73 sqM) Glucose 112 H (74-99) mg/dL Calcium 9.3 (8.4-10.2) mg/dL Magnesium 1.8 (1.6-2.3) mg/dL Total Bilirubin 0.7 (0.2-1.3) mg/dL AST 19 (17-59) U/L ALT 29 (21-72) U/L Alkaline Phosphatase 76 (38-126) U/L Total Creatine Kinase 72 (55-170) U/L CK-MB (CK-2) 1.0 (0.0-2.4) ng/mL CK-MB (CK-2) Rel Index 1.4 Troponin I <0.012 (0.000-0.034) ng/mL Total Protein 7.8 (6.3-8.2) g/dL Albumin 4.2 (3.5-5.0) g/dL TSH 1.520 (0.465-4.680) mIU/L Free T4 1.26 (0.78-2.19) ng/dL Free T3 pg/mL 4.0 (2.8-5.3) pg/ml Urine Color Urine Appearance (Clear) Urine pH (5.0-8.0) Ur Specific [place] (1.001-1.035) Urine Protein (Negative) Urine Glucose (UA) (Negative) Urine Ketones (Negative) Urine Blood (Negative) Urine Nitrite (Negative) Urine Bilirubin (Negative) Urine Urobilinogen (<2.0) mg/dL Ur Leukocyte Esterase (Negative) Urine RBC (0-5) /hpf Urine WBC (0-5) /hpf Ur Squamous Epith Cells (0-4) /hpf Urine Bacteria (None) /hpf Hyaline Casts (0-2) /lpf Urine Mucus (None) /hpf 07/14/18 07/14/18 Range/Units 15:10 16:28 WBC (3.8-10.6) k/uL RBC (4.30-5.90) m/uL Hgb (13.0-17.5) gm/dL Hct (39.0-53.0) % MCV (80.0-100.0) fL MCH (25.0-35.0) pg MCHC (31.0-37.0) g/dL RDW (11.5-15.5) % Plt Count (150-450) k/uL Neutrophils % % Lymphocytes % % Monocytes % % Eosinophils % % Basophils % % Neutrophils # (1.3-7.7) k/uL Lymphocytes # (1.0-4.8) k/uL Monocytes # (0-1.0) k/uL Eosinophils # (0-0.7) k/uL Basophils # (0-0.2) k/uL PT 27.9 H (9.0-12.0) sec INR 3.1 H (<1.2) APTT 37.4 H (22.0-30.0) sec Sodium (137-145) mmol/L Potassium (3.5-5.1) mmol/L Chloride (98-107) mmol/L Carbon Dioxide (22-30) mmol/L Anion Gap mmol/L BUN (9-20) mg/dL Creatinine (0.66-1.25) mg/dL Est GFR (CKD-EPI)AfAm (>60 ml/min/1.73 sqM) Est GFR (CKD-EPI)NonAf (>60 ml/min/1.73 sqM) Glucose (74-99) mg/dL Calcium (8.4-10.2) mg/dL Magnesium (1.6-2.3) mg/dL Total Bilirubin (0.2-1.3) mg/dL AST (17-59) U/L ALT (21-72) U/L Alkaline Phosphatase (38-126) U/L Total Creatine Kinase (55-170) U/L CK-MB (CK-2) (0.0-2.4) ng/mL CK-MB (CK-2) Rel Index Troponin I (0.000-0.034) ng/mL Total Protein (6.3-8.2) g/dL Albumin (3.5-5.0) g/dL TSH (0.465-4.680) mIU/L Free T4 (0.78-2.19) ng/dL Free T3 pg/mL (2.8-5.3) pg/ml Urine Color Yellow Urine Appearance Clear (Clear) Urine pH 5.5 (5.0-8.0) Ur Specific [place] 1.019 (1.001-1.035) Urine Protein Trace H (Negative) Urine Glucose (UA) Negative (Negative) Urine Ketones Negative (Negative) Urine Blood Moderate H (Negative) Urine Nitrite Positive (Negative) Urine Bilirubin Negative (Negative) Urine Urobilinogen <2.0 (<2.0) mg/dL Ur Leukocyte Esterase Small H (Negative) Urine RBC 47 H (0-5) /hpf Urine WBC 15 H (0-5) /hpf Ur Squamous Epith Cells <1 (0-4) /hpf Urine Bacteria Few H (None) /hpf Hyaline Casts 1 (0-2) /lpf Urine Mucus Rare H (None) /hpf - Radiology Data Radiology results: image reviewed (Chest x-ray does show cardiomegaly. Some prominence of central prominent vascularity.) Critical Care Time Critical Care Time: Yes Total Critical Care Time: 32 Disposition Clinical Impression: Atrial fibrillation with RVR, CHF (congestive heart failure) Disposition: ADMITTED IP TO THIS HOSP Referrals: Fred Becker III, MD [Primary Care Provider] - 1-2 days Decision Time: 17:11
[2018-07-14 15:28] LABS: Basophils % (A) 0 %; Eosinophils # (A) 0.1 k/uL (0-0.7); Eosinophils % (A) 1 %; HCT 44.4 % (39.0-53.0); HGB 14.7 gm/dL (13.0-17.5); Lymphocytes # (A) 0.7 k/uL (1.0-4.8); Lymphocytes % (A) 7 %; MCH 29.2 pg (25.0-35.0); MCV 88.3 fL (80.0-100.0); Mean Platelet Volume 6.3; Monocytes # (A) 0.7 k/uL (0-1.0); Monocytes % (A) 7 %; Neutrophils # (A) 8.4 k/uL (1.3-7.7); Neutrophils % (A) 83 %; Platelet Count 349 k/uL (150-450); RBC 5.03 m/uL (4.30-5.90); RDW 12.1 % (11.5-15.5); WBC 10.1 k/uL (3.8-10.6)
[2018-07-14] MEDS: DILTIAZEM 50 MG in SODIUM CHLORIDE 0.9% 40 ML IV SCH ×2 (15:35→22:21)
[2018-07-14 15:41] LABS: ALT 29 U/L (21-72); AST 19 U/L (17-59); Albumin 4.2 g/dL (3.5-5.0); Alkaline Phosphatase 76 U/L (38-126); Anion Gap 12 mmol/L; Blood Urea Nitrogen 22 mg/dL (9-20); Calcium 9.3 mg/dL (8.4-10.2); Carbon Dioxide 22 mmol/L (22-30); Chloride 106 mmol/L (98-107); Glucose 112 mg/dL (74-99); Magnesium 1.8 mg/dL (1.6-2.3); Potassium 4.6 mmol/L (3.5-5.1); Sodium 140 mmol/L (137-145); Total Bilirubin 0.7 mg/dL (0.2-1.3); Total Protein 7.8 g/dL (6.3-8.2)
[2018-07-14 15:51] LABS: Creatine Kinase 72 U/L (55-170)
[2018-07-14 15:56] LABS: T4, Free (Free Thyroxine) 1.26 ng/dL (0.78-2.19)
[2018-07-14 15:58] LABS: INR 3.1 (<1.2); Partial Thromboplastin Time 37.4 sec (22.0-30.0); Prothrombin Time 27.9 sec (9.0-12.0)
[2018-07-14 16:04] LABS: Troponin I <0.012 ng/mL (0.000-0.034)
--- NOTE | 2018-07-14 16:08 | XR ---
EXAMINATION TYPE: XR chest 2V DATE OF EXAM: 07/14/2018 COMPARISON: Prior chest x-ray 06/22/2015 and nuclear medicine PET/CT 10/19/2016 HISTORY: Dysrhythmia TECHNIQUE: Frontal and lateral views of the chest are obtained. FINDINGS: There is no focal air space opacity, pleural effusion, or pneumothorax seen. The cardiac silhouette size is enlarged, technique is apical lordotic and rotated however. There are overlying c ardiac leads. Prominent lung volumes may be indicative of underlying COPD. Question some prominence o f the central vascularity. There is a prominent epicardial fat pad. The osseous structures are intact . IMPRESSION: Rotated exam. Cardiomegaly. Questionable prominence of the central pulmonary vascularity , consider short interval follow-up, assess for pulmonary venous hypertension and early interstitial edema.
[2018-07-14 16:44] LABS: Appearance,Urine Clear (Clear); Bacteria,Urine Few /hpf; Bilirubin,Urine Negative (Negative); Blood,Urine Moderate (Negative); Color,Urine Yellow; Glucose,Urine (UA) Negative (Negative); Hyaline Casts,Urine 1 /lpf (0-2); Ketones,Urine Negative (Negative); Leukocyte Esterase,Urine Small (Negative); Mucus,Urine Rare /hpf; Nitrite,Urine Positive (Negative); PH, Urine 5.5 (5.0-8.0); Protein,Urine Trace (Negative); RBC,Urine 47 /hpf (0-5); Specific Gravity,Urine 1.019 (1.001-1.035); Squamous Epithelial Cell,Urine <1 /hpf (0-4); Urobilinogen,Urine <2.0 mg/dL (<2.0); WBC,Urine 15 /hpf (0-5)
[2018-07-14] MEDS ORDERED: Acetaminophen-Codeine 300-30mg TAB PO PRN (16:51)
[2018-07-14] MEDS ORDERED: FUROSEMIDE 10 MG/ML 4 ML VIAL IV STA (17:08)
[2018-07-14] MEDS ORDERED: NALOXONE 0.4 MG/ML 1 ML VIAL IV PRN (17:13)
[2018-07-14] MEDS ORDERED: SODIUM CHLORIDE 0.9% 1,000 ML IV SCH (17:15)
--- NOTE | 2018-07-14 17:43 | P.HPIM ---
History of Present Illness Patient is a pleasant 78-year-old male presenting to the emergency department with fatigue. Symptoms have been occurring for the past few days. Patient feels fatigued and achy all over. Patient does admit to having some dyspnea only with exertion. Patient denies chest pain. Occasional palpitations. Patient does have a known history of atrial fibrillation. Patient is found to be in atrial fibrillation patient was started on Cardizem was admitted. Patient takes atenolol at home patient has multiple admissions for seizures in the past. Patient does have history of atrial fibrillation is on Coumadin therapy can Coumadin. Patient has normal ejection fraction the past patient denied orthopnea paroxysmal nocturnal dyspnea. Chest x-ray suspicious for some pulmonary edema. Patient has a very minimally elevated JVD extending less than 1 cm above the clavicle, no pedal edema we'll obtain a brain natriuretic peptide. Patient does have history of benign prostatic upper trophies comparing of dysuria and increased urinary frequency patient is on tamsulosin. Patient urine is bit abnormal patient will be started on Rocephin. Review of Systems REVIEW OF SYSTEMS: CONSTITUTIONAL: No fever, no malaise, HEENT: No recent visual problems or hearing problems. Denied any sore throat. CARDIOVASCULAR: No chest pain, orthopnea, PND, no palpitations, no syncope. PULMONARY: No shortness of breath, no cough, no hemoptysis. GASTROINTESTINAL: No diarrhea, no nausea, no vomiting, no abdominal pain. Normoactive bowel sounds. NEUROLOGICAL: No headaches, no weakness, no numbness. HEMATOLOGICAL: Denies any bleeding or petechiae. GENITOURINARY: Denies any burning micturition, frequency, or urgency. MUSCULOSKELETAL/RHEUMATOLOGICAL: Denies any joint pain, swelling, or any muscle pain. ENDOCRINE: Denies any polyuria or polydipsia. The rest of the 14-point review of systems is negative. 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 History of Any Multi-Drug Resistant Organisms: None Reported Past Surgical History: Ablation, Joint Replacement, Tonsillectomy Additional Past Surgical History / Comment(s): GAEL. KNEE REPLACEMENT, CIRCUMCISION,HEMORRHOIDECTOMY, LEFT MIDDLE FINGER, RIGHT AND LEFT KNEE ARTHROTOMY, CANCEROUS LESION REMOVED FROM BUTTOCKS, cardiac ablation. See Dr. Gillis's H & P. Past Anesthesia/Blood Transfusion Reactions: Postoperative Nausea & Vomiting ( PONV) Additional Past Anesthesia/Blood Transfusion Reaction / Comment(s): Hx. of N/V. Past Psychological History: No Psychological Hx Reported Smoking Status: Never smoker Past Alcohol Use History: Rare Past Drug Use History: None Reported - Past Family History Sister(s) Family Medical History: Cancer Additional Family Medical History / Comment(s): BREAST PRE CANCER Father Family Medical History: Cancer Additional Family Medical History / Comment(s): SKIN CANCER Medications and Allergies Home Medications Medication Instructions Recorded Confirmed Type Lisinopril 10 mg PO HS 06/28/15 07/14/18 History Warfarin Sodium [Coumadin] 5 mg PO MOTUTHFRSA 01/14/17 07/14/18 History Warfarin Sodium [Coumadin] 7.5 mg PO SUWE 01/14/17 07/14/18 History Tamsulosin [Flomax] 0.4 mg PO HS 03/17/17 07/14/18 History Acetaminophen-Codeine 300-30mg 1 tab PO BID PRN 07/14/18 07/14/18 History [Tylenol w/codeine #3] Atenolol [Tenormin] 50 mg PO BID 07/14/18 07/14/18 History Naproxen Sodium [Aleve] 220 mg PO ONCE PRN 07/14/18 07/14/18 History amLODIPine BESYLATE [Norvasc] 10 mg PO BID 07/14/18 07/14/18 History Allergies Allergy/AdvReac Type Severity Reaction Status Date / Time flecainide Allergy severe Verified 07/14/18 16:01 weakness morphine Allergy Hallucinations/FELT Verified 07/14/18 16:01 LIKE BUGS CRAWLING" oxycodone Allergy Nausea Verified 07/14/18 16:01 pentazocine lactate Allergy Nausea & Verified 07/14/18 16:01 [From Kristopher] Vomiting Rwmyfef-Nrb-Ieo Reductase AdvReac severe Verified 07/14/18 16:01 Inhibitor muscle cramps & pain Physical Exam Vitals: Vital Signs Temp Pulse Resp BP Pulse Ox 07/14/18 17:34 84 18 114/67 97 07/14/18 16:22 84 18 118/66 97 07/14/18 15:54 84 18 110/64 97 07/14/18 15:38 83 18 108/61 96 07/14/18 14:42 98.3 F 177 H 18 127/80 98 Intake and Output 07/14/18 07/14/18 07/14/18 06:59 14:59 22:59 Other: Weight 98.883 kg PHYSICAL EXAMINATION: GENERAL: The patient is alert and oriented x3, not in any acute distress. Well developed, well nourished. HEENT: Pupils are round and equally reacting to light. EOMI. No scleral icterus. No conjunctival pallor. Normocephalic, atraumatic. No pharyngeal erythema. No thyromegaly. CARDIOVASCULAR: S1 and S2 present. No murmurs, rubs, or gallops. Tachycardic, irregularly irregular rhythm JVD as mentioned above PULMONARY: Chest is clear to auscultation, no wheezing or crackles. ABDOMEN: Soft, nontender, nondistended, normoactive bowel sounds. No palpable organomegaly. MUSCULOSKELETAL: No joint swelling or deformity. EXTREMITIES: No cyanosis, clubbing, or pedal edema. NEUROLOGICAL: Gross neurological examination did not reveal any focal deficits. SKIN: No rashes. Results CBC & Chem 7: 07/14/18 15:10 07/14/18 15:10 Labs: Abnormal Lab Results - Last 24 Hours (Table) 07/14/18 07/14/18 07/14/18 Range/Units 15:10 15:10 15:10 Neutrophils # 8.4 H (1.3-7.7) k/uL Lymphocytes # 0.7 L (1.0-4.8) k/uL PT 27.9 H (9.0-12.0) sec INR 3.1 H (<1.2) APTT 37.4 H (22.0-30.0) sec BUN 22 H (9-20) mg/dL Glucose 112 H (74-99) mg/dL Urine Protein (Negative) Urine Blood (Negative) Ur Leukocyte Esterase (Negative) Urine RBC (0-5) /hpf Urine WBC (0-5) /hpf Urine Bacteria (None) /hpf Urine Mucus (None) /hpf 07/14/18 Range/Units 16:28 Neutrophils # (1.3-7.7) k/uL Lymphocytes # (1.0-4.8) k/uL PT (9.0-12.0) sec INR (<1.2) APTT (22.0-30.0) sec BUN (9-20) mg/dL Glucose (74-99) mg/dL Urine Protein Trace H (Negative) Urine Blood Moderate H (Negative) Ur Leukocyte Esterase Small H (Negative) Urine RBC 47 H (0-5) /hpf Urine WBC 15 H (0-5) /hpf Urine Bacteria Few H (None) /hpf Urine Mucus Rare H (None) /hpf Assessment and Plan Plan: -Atrial fibrillation with rapid ventricular rate: Patient will be switched to metoprolol 100 twice a day from atenolol, Cardizem will be continued probably can be dyspnea once his heart rate comes and controlled continue with anti- correlation repeat INR tomorrow patient is set up to come Coumadin. -Possible urinary tract infection patient does have history of benign prostatic hypertrophy grams wasn't will be continued patient was started on Rocephin awaiting urine cultures -Hypertension: Hold off on amlodipine as patient is on other calcium channel klaus, lisinopril will be continued -Benign prostatic hypertrophy
[2018-07-14] MEDS ORDERED: cefTRIAXone IN SWFI 1,000 MG/10 ML SYRINGE IVP SCH (18:00)
[2018-07-14] MEDS ORDERED: CEPHALEXIN 500 MG CAP PO SCH (18:00)
[2018-07-14] MEDS ORDERED: WARFARIN 5 MG TAB PO SCH (18:00)
[2018-07-14 20:05] VITALS: BMI 31.8
[2018-07-14] MEDS: METOPROLOL TARTRATE 50 MG TAB PO SCH (20:22)
[2018-07-14] MEDS ORDERED: ATENOLOL 50 MG TAB PO SCH (21:00)
[2018-07-14] MEDS ORDERED: LISINOPRIL 5 MG TAB PO SCH (21:00)
[2018-07-14] MEDS ORDERED: LISINOPRIL 10 MG TAB PO SCH (21:00)
[2018-07-14] MEDS ORDERED: TAMSULOSIN 0.4 MG CAP.ER.24H PO SCH (21:00)
[2018-07-14 21:20] LABS: Glucose,Whole Blood 102 mg/dL (75-99)
[2018-07-14 22:04] LABS: Creatine Kinase 57 U/L (55-170)
[2018-07-14 22:17] LABS: Creatine Kinase MB 0.8 ng/mL (0.0-2.4); Troponin I <0.012 ng/mL (0.000-0.034)
[2018-07-15 03:51] LABS: HCT 42.1 % (39.0-53.0); HGB 13.8 gm/dL (13.0-17.5); MCH 29.2 pg (25.0-35.0); MCHC 32.9 g/dL (31.0-37.0); Mean Platelet Volume 6.4; Platelet Count 324 k/uL (150-450); RBC 4.73 m/uL (4.30-5.90); RDW 12.1 % (11.5-15.5); WBC 7.2 k/uL (3.8-10.6)
[2018-07-15 04:04] LABS: Anion Gap 10 mmol/L; Blood Urea Nitrogen 21 mg/dL (9-20); Calcium 8.9 mg/dL (8.4-10.2); Carbon Dioxide 26 mmol/L (22-30); Chloride 103 mmol/L (98-107); Glucose 97 mg/dL (74-99); Potassium 4.5 mmol/L (3.5-5.1); Sodium 139 mmol/L (137-145)
[2018-07-15 04:12] LABS: Creatine Kinase 61 U/L (55-170)
[2018-07-15 04:25] LABS: Creatine Kinase MB 0.9 ng/mL (0.0-2.4); Troponin I <0.012 ng/mL (0.000-0.034)
[2018-07-15 04:34] LABS: INR 3.5 (<1.2); Prothrombin Time 31.1 sec (9.0-12.0)
[2018-07-15 06:08] LABS: Glucose,Whole Blood 98 mg/dL (75-99)
[2018-07-15] MEDS: METOPROLOL TARTRATE 50 MG TAB PO SCH (08:54)
[2018-07-15 10:46] VITALS: RESP 16; TEMP 97
[2018-07-15] MEDS: DILTIAZEM 50 MG in SODIUM CHLORIDE 0.9% 40 ML IV SCH (12:14)
--- NOTE | 2018-07-15 12:42 | P.DS ---
Providers Date of admission: 07/14/18 17:11 Attending physician: Lisa Falcon Consults: 07/14/18 17:14 Consult Physician Urgent Consulting Provider: Jacqui Walker Consult Reason/Comments: a fib, eval for chf Do you want consulting provider notified?: Yes Primary care physician: [facility] Course: Patient was admitted for atrial fibrillation with rapid unclear rate patient is off Cardizem for rate is presently well-controlled with metoprolol patient was switched to metoprolol 100 twice a day and will be discharged today if cleared by cardiology. Patient is also being treated for urinary tract infection will continue 3 more days of Ceftin I'm not using fluoroquinolones because of concerns of arrhythmia. PHYSICAL EXAMINATION: GENERAL: The patient is alert and oriented x3, not in any acute distress. Well developed, well nourished. HEENT: Pupils are round and equally reacting to light. EOMI. No scleral icterus. No conjunctival pallor. Normocephalic, atraumatic. No pharyngeal erythema. No thyromegaly. CARDIOVASCULAR: S1 and S2 present. No murmurs, rubs, or gallops. PULMONARY: Chest is clear to auscultation, no wheezing or crackles. ABDOMEN: Soft, nontender, nondistended, normoactive bowel sounds. No palpable organomegaly. MUSCULOSKELETAL: No joint swelling or deformity. EXTREMITIES: No cyanosis, clubbing, or pedal edema. NEUROLOGICAL: Gross neurological examination did not reveal any focal deficits. SKIN: No rashes. Assessment and Plan Plan: -Atrial fibrillation with rapid ventricular rate: As in the rate controlled Coumadin is therapeutic at 3.5 will change her Coumadin to 5 mg daily -Possible urinary tract infection patient does have history of benign prostatic hypertrophy discharged on Ceftin -Hypertension: -Benign prostatic hypertrophy Plan - Discharge Summary Discharge Rx Participant: Yes New Discharge Prescriptions: New Cefuroxime Axetil [Ceftin] 500 mg PO BID 3 Days #6 tab Metoprolol Tartrate [Lopressor] 100 mg PO BID #60 tab Continue Lisinopril 10 mg PO HS Tamsulosin [Flomax] 0.4 mg PO HS Naproxen Sodium [Aleve] 220 mg PO ONCE PRN PRN Reason: Pain Acetaminophen-Codeine 300-30mg [Tylenol w/codeine #3] 1 tab PO BID PRN PRN Reason: Pain Changed amLODIPine BESYLATE [Norvasc] 5 mg PO BID #0 Warfarin Sodium [Coumadin] 5 mg PO DAILY #0 Discontinued Warfarin Sodium [Coumadin] 7.5 mg PO SUWE Atenolol [Tenormin] 50 mg PO BID Discharge Medication List Lisinopril 10 mg PO HS 06/28/15 [History] Tamsulosin [Flomax] 0.4 mg PO HS 03/17/17 [History] Acetaminophen-Codeine 300-30mg [Tylenol w/codeine #3] 1 tab PO BID PRN 07/14/18 [History] Naproxen Sodium [Aleve] 220 mg PO ONCE PRN 07/14/18 [History] Cefuroxime Axetil [Ceftin] 500 mg PO BID 3 Days #6 tab 07/15/18 [Rx] Metoprolol Tartrate [Lopressor] 100 mg PO BID #60 tab 07/15/18 [Rx] Warfarin Sodium [Coumadin] 5 mg PO DAILY #0 07/15/18 [Rx] amLODIPine BESYLATE [Norvasc] 5 mg PO BID #0 07/15/18 [Rx] Follow up Appointment(s)/Referral(s): Fred Becker III, MD [Primary Care Provider] - 3 Days Patient Instructions/Handouts: A-fib (Atrial Fibrillation) (DC) Discharge Disposition: HOME SELF-CARE
[2018-07-15 12:48] VITALS: BP 124/85; PULSE 82
--- NOTE | 2018-07-15 16:53 | P.CRDCN ---
History of Present Illness Consult date: 07/15/18 Requesting physician: Lisa Falcon Reason for Consult (text): Atrial fibrillation with RVR Chief complaint: weakness, fatigue History of present illness: This is a pleasant 78-year-old gentleman who follows with Dr. VC Walker in the office. He has a history of Quinn cell carcinoma of the buttock, hyperlipidemia, hypertension, PE in the past, sleep apnea for which he uses a CPAP regularly and paroxysmal atrial fibrillation as well as typical atrial flutter with previous ablations in the past by Dr. Gillis. Most recent ablation was done December of this year for atrial flutter. Percentage to the emergency department with complaints of overall weakness, fatigue and generalized joint pain. He's also been noticing some shortness of breath with activity and decreased exercise tolerance. Upon presentation patient was found to be in atrial fibrillation with rapid ventricular response. Chest x-ray showed questionable prominence of central pulmonary vascularity, consider short interval follow-up, assess for pulmonary venous hypertension and early interstitial edema. He was given 1 dose of IV Lasix. He was also started on a Cardizem drip. He is anticoagulated on Coumadin. He's on Lopressor 100 mg by mouth twice a day. He is currently maintaining sinus rhythm. Laboratory values showed troponins negative 3, NT proBNP of 405, normal TSH, T4 and T3, BUN of 21 and a creatinine of 0.8. His INR this morning was 3.5. Upon examination, patient is feeling quite a bit better. Denies any complaints of generalized joint discomfort, shortness of breath or weakness. 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 History of Any Multi-Drug Resistant Organisms: None Reported Past Surgical History: Ablation, Joint Replacement, Tonsillectomy Additional Past Surgical History / Comment(s): GAEL. KNEE REPLACEMENT, CIRCUMCISION,HEMORRHOIDECTOMY, LEFT MIDDLE FINGER, RIGHT AND LEFT KNEE ARTHROTOMY, CANCEROUS LESION REMOVED FROM BUTTOCKS, cardiac ablation. See Dr. Gillis's H & P. Past Anesthesia/Blood Transfusion Reactions: Postoperative Nausea & Vomiting ( PONV) Additional Past Anesthesia/Blood Transfusion Reaction / Comment(s): Hx. of N/V. Past Psychological History: No Psychological Hx Reported Smoking Status: Never smoker Past Alcohol Use History: Rare Past Drug Use History: None Reported - Past Family History Sister(s) Family Medical History: Cancer Additional Family Medical History / Comment(s): BREAST PRE CANCER Father Family Medical History: Cancer Additional Family Medical History / Comment(s): SKIN CANCER Medications and Allergies Home Medications Medication Instructions Recorded Confirmed Type Lisinopril 10 mg PO HS 06/28/15 07/14/18 History Tamsulosin [Flomax] 0.4 mg PO HS 03/17/17 07/14/18 History Acetaminophen-Codeine 300-30mg 1 tab PO BID PRN 07/14/18 07/14/18 History [Tylenol w/codeine #3] Naproxen Sodium [Aleve] 220 mg PO ONCE PRN 07/14/18 07/14/18 History Cefuroxime Axetil [Ceftin] 500 mg PO BID 3 Days #6 tab 07/15/18 Rx Metoprolol Tartrate [Lopressor] 100 mg PO BID #60 tab 07/15/18 Rx Warfarin Sodium [Coumadin] 5 mg PO DAILY #0 07/15/18 07/14/18 Rx amLODIPine BESYLATE [Norvasc] 5 mg PO BID #0 07/15/18 07/14/18 Rx Allergies Allergy/AdvReac Type Severity Reaction Status Date / Time flecainide Allergy severe Verified 07/14/18 16:01 weakness morphine Allergy Hallucinations/FELT Verified 07/14/18 16:01 LIKE BUGS CRAWLING" oxycodone Allergy Nausea Verified 07/14/18 16:01 pentazocine lactate Allergy Nausea & Verified 07/14/18 16:01 [From Kristopher] Vomiting Dwdrlmu-Ils-Ynj Reductase AdvReac severe Verified 07/14/18 16:01 Inhibitor muscle cramps & pain Physical Exam Vitals: Vital Signs Temp Pulse Pulse Resp BP BP Pulse Ox 07/15/18 04:00 98.0 F 81 18 122/75 94 L 07/15/18 00:00 98.0 F 83 18 118/67 96 07/14/18 20:02 98.5 F 83 18 101/60 95 07/14/18 20:00 83 18 07/14/18 18:25 98.1 F 85 18 134/75 95 07/14/18 17:34 84 18 114/67 97 07/14/18 16:22 84 18 118/66 97 07/14/18 15:54 84 18 110/64 97 07/14/18 15:38 83 18 108/61 96 07/14/18 14:42 98.3 F 177 H 18 127/80 98 Intake and Output 07/14/18 07/15/18 07/15/18 22:59 06:59 14:59 Intake Total 33.833 163.25 Output Total 200 525 Balance -166.167 -361.75 Intake: IV 160 0.9 160 Intake, IV Titration 33.833 3.25 Amount Diltiazem 50 mg In Sodium 33.833 3.25 Chloride 0.9% 40 ml @ 5 MG/HR 5 mls/hr IV .Q10H [facility] Rx#:[id number] Output: Urine 200 525 Other: Voiding Method Urinal Urinal # Voids 1 Weight 97.7 kg 97 kg PHYSICAL EXAMINATION: HEENT: [Head is atraumatic, normocephalic. Pupils equal, round. Neck is supple. There is no elevated jugular venous pressure.] HEART EXAMINATION: [Heart sounds regular, S1 and S2 normal. No murmur or gallop heard.] CHEST EXAMINATION:[ Lungs are clear to auscultation and precussion. No chest wall tenderness is noted on palpation or with deep breathing.] ABDOMEN: [ Soft, nontender. Bowel sounds are heard. No organomegaly noted]. EXTREMITIES:[ 2+ peripheral pulses with no evidence of peripheral edema and no calf tenderness noted]. NEUROLOGIC [patient is awake, alert and oriented x3.] . Results 07/15/18 03:29 07/15/18 03:29 Cardiac Enzymes 07/14/18 07/14/18 07/14/18 Range/Units 15:10 15:10 21:15 AST 19 (17-59) U/L CK-MB (CK-2) 1.0 0.8 (0.0-2.4) ng/mL Troponin I <0.012 <0.012 (0.000-0.034) ng/mL 07/15/18 Range/Units 03:29 AST (17-59) U/L CK-MB (CK-2) 0.9 (0.0-2.4) ng/mL Troponin I <0.012 (0.000-0.034) ng/mL Coagulation 07/14/18 07/15/18 Range/Units 15:10 03:29 PT 27.9 H 31.1 H (9.0-12.0) sec APTT 37.4 H (22.0-30.0) sec CBC 07/14/18 07/15/18 Range/Units 15:10 03:29 WBC 10.1 7.2 (3.8-10.6) k/uL RBC 5.03 4.73 (4.30-5.90) m/uL Hgb 14.7 13.8 (13.0-17.5) gm/dL Hct 44.4 42.1 (39.0-53.0) % Plt Count 349 324 (150-450) k/uL Comprehensive Metabolic Panel 07/14/18 07/15/18 Range/Units 15:10 03:29 Sodium 140 139 (137-145) mmol/L Potassium 4.6 4.5 (3.5-5.1) mmol/L Chloride 106 103 (98-107) mmol/L Carbon Dioxide 22 26 (22-30) mmol/L BUN 22 H 21 H (9-20) mg/dL Creatinine 0.70 0.80 (0.66-1.25) mg/dL Glucose 112 H 97 (74-99) mg/dL Calcium 9.3 8.9 (8.4-10.2) mg/dL AST 19 (17-59) U/L ALT 29 (21-72) U/L Alkaline Phosphatase 76 (38-126) U/L Total Protein 7.8 (6.3-8.2) g/dL Albumin 4.2 (3.5-5.0) g/dL Current Medications Generic Name Dose Route Start Last Admin Trade Name Freq PRN Reason Stop Dose Admin Acetaminophen/Codeine Phosphate 1 each 07/14/18 16:51 Tylenol #3 PO BID PRN Pain Ceftriaxone Sodium 1,000 mg 07/14/18 18:00 07/14/18 17:54 Rocephin IVP 1,000 mg Q24H JAIR Administration Diltiazem HCl 50 mg/ Sodium 50 mls @ 5 mls/hr 07/14/18 15:15 07/14/18 23:00 Chloride IV 0 mg/hr .Q10H JAIR 0 mls/hr Infusion 5 MG/HR Sodium Chloride 1,000 mls @ 20 mls/hr 07/14/18 17:15 07/14/18 17:35 Saline 0.9% IV 20 mls/hr .Q24H JAIR Administration Lisinopril 5 mg 07/14/18 21:00 07/14/18 20:22 Zestril PO 5 mg HS JAIR Administration Metoprolol Tartrate 100 mg 07/14/18 21:00 07/14/18 20:22 Lopressor PO 100 mg BID JAIR Administration Naloxone HCl 0.2 mg 07/14/18 17:13 Narcan IV Q2M PRN Opioid Reversal Tamsulosin HCl 0.4 mg 07/14/18 21:00 07/14/18 20:22 Flomax PO 0.4 mg HS JAIR Administration Warfarin Sodium 7.5 mg 07/15/18 18:00 Coumadin PO SUWE JAIR Warfarin Sodium 5 mg 07/14/18 18:00 07/14/18 17:55 Coumadin PO 5 mg MOTUTHFRSA JAIR Administration Intake and Output 07/14/18 07/15/18 07/15/18 22:59 06:59 14:59 Intake Total 33.833 163.25 Output Total 200 525 Balance -166.167 -361.75 Intake: IV 160 0.9 160 Intake, IV Titration 33.833 3.25 Amount Diltiazem 50 mg In Sodium 33.833 3.25 Chloride 0.9% 40 ml @ 5 MG/HR 5 mls/hr IV .Q10H JAIR Rx#:[id number] Output: Urine 200 525 Other: Voiding Method Urinal Urinal # Voids 1 Weight 97.7 kg 97 kg 07/15/18 03:29 07/15/18 03:29 EKG Interpretations (text) Initial EKG showed atrial fibrillation with rapid ventricular response Assessment and Plan Assessment: #1 paroxysmal atrial fibrillation with rapid ventricular response #2 status post multiple ablations in the past #3 hypertension #4 hyperlipidemia #5 obstructive sleep apnea Plan: From cardiology active, we will hold Coumadin today, goal INR to be between 2.0 and 3.0. Continue Lopressor 100 mg by mouth twice a day. Patient is scheduled to follow-up with Dr. Walker later this month. He will keep that appointment. Patient may be discharged home today. 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 Patient was seen and examined.
[2018-07-15] MEDS ORDERED: WARFARIN 7.5 MG TAB PO SCH (18:00)
== END 2018-07-15 14:58 | disposition home or self-care (01) | DRG 309 ==
LOC: EC 14:38 → 6SEL 17:11
PROVIDERS: ADMIT Internal Medicine; ATTEND Internal Medicine
DX: I48.0 Paroxysmal atrial fibrillation (principal); N39.0 Urinary tract infection, site not specified; E78.5 Hyperlipidemia, unspecified; G47.33 Obstructive sleep apnea (adult) (pediatric); Z96.653 Presence of artificial knee joint, bilateral; N40.0 Benign prostatic hyperplasia without lower urinary tract symptoms; I10 Essential (primary) hypertension; Z79.01 Long term (current) use of anticoagulants; Z99.89 Dependence on other enabling machines and devices; Z80.8 Family history of malignant neoplasm of other organs or systems; Z85.821 Personal history of Merkel cell carcinoma; Z86.711 Personal history of pulmonary embolism; Z79.899 Other long term (current) drug therapy; Z88.5 Allergy status to narcotic agent; Z88.8 Allergy status to other drugs, medicaments and biological substances
CPT/HCPCS: 36415; 71046; 80048; 80053; 81001; 82550; 82553; 83735; 83880; 84439; 84443; 84481; 84484; 85025; 85027; 85610; 85730; 87077; 87086; 87186; 93005; 96365; 96366; 96375; 96376; 99291

== ENCOUNTER → 2018-10-23 | Outpatient (CLI) | payer MEDICARE ==
[2018-10-23 14:17] LABS: Blood Urea Nitrogen 25 mg/dL (9-20)
--- NOTE | 2018-10-23 15:49 | CT ---
EXAMINATION TYPE: CT chest wo/w con DATE OF EXAM: 10/23/2018 COMPARISON: Bone scan 10/08/2018 and nuclear medicine PET/CT 10/19/2016 HISTORY: right sided chest pain, recent dx of prostate ca CT DLP: 1206.2 mGycm Automated exposure control for dose reduction was used. CONTRAST: CT scan of the chest is performed with IV Contrast, patient injected with 100 mL of Isovue 300. FINDINGS: LUNGS: The lungs are remarkable for lobular soft tissue density seen on axial images #31 through 34 a long the major fissure and minor fissure measuring approximately 2 cm x 2.5 cm x 2.2 cm. Additional vague nodular density measuring only 6 mm on axial image 30 in the right lower lobe is noted. These lesions were not seen on prior PET/CT. Some scarring present peripherally in the right middle lobe wi th some local pleural thickening is suspected. There is no pleural effusion or pneumothorax seen. Th e tracheobronchial tree is patent. MEDIASTINUM: There are no greater than 1 cm hilar or mediastinal lymph nodes. No pericardial effusi on is seen. AORTA: No additional significant abnormality is seen. OTHER: Marked arthropathy of the sternoclavicular joints is present which correlates with abnormal b one scan findings. Coronary artery calcifications are dense, small hiatal hernia suspected. Calcifica tions within the spleen compatible with old granulomatous disease. 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 Large low dens e focus associated with the upper pole the left kidney likely represents cyst measuring approximately 7.5 cm similar to prior exam IMPRESSION: Interval development of lobular soft tissue density along the fissures as described in t he right lung are indeterminate, short interval follow-up to assess for any interval growth or nuclea r medicine PET/CT could be performed for additional evaluation.
== END | disposition home or self-care (01) ==
LOC: RADCTMAIN 13:11
PROVIDERS: ATTEND Urology
DX: C61 Malignant neoplasm of prostate (principal); R91.8 Other nonspecific abnormal finding of lung field; Z88.5 Allergy status to narcotic agent; Z88.8 Allergy status to other drugs, medicaments and biological substances
CPT/HCPCS: 82565; 84520; 71270; 36415; Q9967

== ENCOUNTER → 2019-01-01 | Outpatient (CLI) | payer MEDICARE ==
[2019-01-01 07:06] LABS: Blood Urea Nitrogen 16 mg/dL (9-20)
--- NOTE | 2019-01-01 09:29 | CT ---
EXAMINATION TYPE: CT chest wo/w con DATE OF EXAM: 01/01/2019 COMPARISON: 10/23/[address] and PET/CT dated 10/19/2016 HISTORY: Prostate CA, [place] Cell CA CT DLP: 1101.4 mGycm. Automated Exposure Control for Dose Reduction was Utilized. TECHNIQUE: CT scan of the thorax is performed following without and with IV Contrast, patient inject ed with 100 mL of Isovue 300. FINDINGS: LUNGS: There is stable size of 4 right-sided subcentimeter pulmonary nodules in a solitary left subce ntimeter pulmonary nodules also consolidation along the right interlobar fissure. These are stable fr om the prior of 10/23/2018 but not seen on the PET/CT of 10/29/2016 however there is multifocal atele ctasis and interstitial edema at that time. One of the right lower lobe pulmonary nodules appears to be subtly retrospectively present on that examination and unchanged in size. MEDIASTINUM: There are no greater than 1 cm hilar or mediastinal lymph nodes. Benign-appearing calci fications are scattered around the superior vena cava, possibly granulomas. Severe coronary artery ca lcifications are noted. Small hiatal hernia is seen. No pericardial effusion is seen. OTHER: There is a left upper pole 8.1 cm cyst that is partially visualized. Benign granulomas are pre sent. Mild hepatic steatosis is seen. There is redemonstration of a sclerotic focus within the L2 jason tebral body on series 10 image 67, unchanged. Flowing anterior osteophytes are seen throughout the th oracic spine suggesting diffuse idiopathic skeletal hyperostosis. Vertebral body heights are similar to the prior. Again note of right thyroid gland enlargement and heterogeneity. IMPRESSION: 1. Near complete resolution of the previously seen lobular density along the right interlobar fissure with minimal linear scarring remaining. Additionally there is stability short-term of the bilateral subcentimeter pulmonary nodules in comparison to the exam of 10/23/2018. Continued surveillance for t hese pulmonary nodules is recommended. 2. Right thyroid lobe enlargement heterogeneity that may relate to a goiter however evaluation for th yroid nodule is recommended with thyroid ultrasound.
== END | disposition home or self-care (01) ==
LOC: RADCTMAIN 06:17
PROVIDERS: ATTEND Radiology Radiation Oncology
DX: R91.8 Other nonspecific abnormal finding of lung field (principal); E04.9 Nontoxic goiter, unspecified; C61 Malignant neoplasm of prostate; Z85.821 Personal history of Merkel cell carcinoma
CPT/HCPCS: 82565; 84520; 71270; 36415; Q9967

== ENCOUNTER 2019-06-21 15:25 | Inpatient (IN) | payer MEDICARE ==
[2019-06-21] MEDS ORDERED: SODIUM CHLORIDE 0.9% 1,000 ML IV STA (16:14)
[2019-06-21 16:29] LABS: Basophils % (A) 0 %; Eosinophils # (A) 0.1 k/uL (0-0.7); Eosinophils % (A) 1 %; HCT 48.7 % (39.0-53.0); HGB 16.2 gm/dL (13.0-17.5); Lymphocytes # (A) 0.5 k/uL (1.0-4.8); Lymphocytes % (A) 5 %; MCH 29.9 pg (25.0-35.0); MCHC 33.2 g/dL (31.0-37.0); MCV 89.9 fL (80.0-100.0); Mean Platelet Volume 6.8; Monocytes # (A) 0.8 k/uL (0-1.0); Monocytes % (A) 7 %; Neutrophils # (A) 8.8 k/uL (1.3-7.7); Neutrophils % (A) 85 %; Platelet Count 245 k/uL (150-450); RBC 5.42 m/uL (4.30-5.90); RDW 12.8 % (11.5-15.5); WBC 10.2 k/uL (3.8-10.6)
[2019-06-21 16:34] LABS: Albumin 4.6 g/dL (3.5-5.0); Calcium 9.5 mg/dL (8.4-10.2); Potassium 4.6 mmol/L (3.5-5.1); Total Bilirubin 0.8 mg/dL (0.2-1.3); Total Protein 8.1 g/dL (6.3-8.2)
[2019-06-21 16:44] LABS: Appearance,Urine Clear (Clear); Bilirubin,Urine Negative (Negative); Blood,Urine Small (Negative); Color,Urine Yellow; Glucose,Urine (UA) Negative (Negative); Ketones,Urine Negative (Negative); Leukocyte Esterase,Urine Small (Negative); Mucus,Urine Rare /hpf; Nitrite,Urine Negative (Negative); Protein,Urine 1+ (Negative); RBC,Urine 9 /hpf (0-5); Specific Gravity,Urine 1.019 (1.001-1.035); Urobilinogen,Urine <2.0 mg/dL (<2.0)
[2019-06-21] MEDS ORDERED: ONDANSETRON 4 MG/2 ML VIAL IVP STA (17:48)
[2019-06-21] MEDS ORDERED: KETOROLAC 30 MG/ML 1 ML VIAL IVP STA (17:48)
--- NOTE | 2019-06-21 18:16 | ED ---
Abdominal Pain HPI <Kodi Salmeron - Last Filed: 06/21/19 20:06> - General Source: patient Mode of arrival: wheelchair Limitations: no limitations <Niharika Sun - Last Filed: 06/21/19 20:22> - General Chief Complaint: Abdominal Pain Stated Complaint: left side abdominal pain Time Seen by Provider: 06/21/19 17:33 - History of Present Illness Initial Comments: Patient is a 79-year-old male with complaints of left-sided abdominal pain since this morning. Patient states his pain started approximately 2:30 in the morning and was sudden and severe, starting in his left flank area and wrapping around to the left lower abdomen and groin area. Patient states the pain has been intense that is making him nauseous and dry heave. Patient denies fever, chills. Patient states he does have a few small stones that are in the kidneys, but have never had complications from them. Patient admits to history of left- sided renal cyst. Patient denies chest pain, shortness of breath, diarrhea. Other complaints at this time. (Niharika Sun) - Related Data Home Medications Medication Instructions Recorded Confirmed Lisinopril 10 mg PO DAILY 06/28/15 06/21/19 Calcium Carbonate [Calcium] 600 mg PO DAILY 06/21/19 06/21/19 Magnesium Oxide [Younger] 500 mg PO DAILY 06/21/19 06/21/19 Metoprolol Tartrate [Lopressor] 150 mg PO BID 06/21/19 06/21/19 Vitamin E (Dl,Tocopheryl Acet) 400 unit PO DAILY 06/21/19 06/21/19 [Vitamin E] Warfarin Sodium 5 mg PO SUTUTHSA 06/21/19 06/21/19 Warfarin Sodium [Coumadin] 7.5 mg PO MOWEFR 06/21/19 06/21/19 amLODIPine [Norvasc] 2.5 mg PO BID 06/21/19 06/21/19 Allergies Allergy/AdvReac Type Severity Reaction Status Date / Time flecainide Allergy severe Verified 06/21/19 17:30 weakness morphine Allergy Hallucinations/FELT Verified 06/21/19 17:30 LIKE BUGS CRAWLING" oxycodone Allergy Nausea Verified 06/21/19 17:30 pentazocine lactate Allergy Nausea & Verified 06/21/19 17:30 [From Kristopher] Vomiting Gjpycpq-Zzg-Miy Reductase AdvReac severe Verified 06/21/19 17:30 Inhibitor muscle cramps & pain Review of Systems ROS Other: All systems not noted in ROS Statement are negative. <Kodi Salmeron - Last Filed: 06/21/19 20:06> ROS Other: All systems not noted in ROS Statement are negative. <Niharika Sun - Last Filed: 06/21/19 20:22> ROS Statement: Those systems with pertinent positive or pertinent negative responses have been documented in the HPI. 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 prostate cancer History of Any Multi-Drug Resistant Organisms: None Reported Past Surgical History: Ablation, Joint Replacement, Tonsillectomy Additional Past Surgical History / Comment(s): GAEL. KNEE REPLACEMENT,CIRCUMCIS ION,HEMORRHOIDECTOMY, LEFT MIDDLE FINGER, RIGHT AND LEFT KNEE ARTHROTOMY, CANCEROUS LESION REMOVED FROM BUTTOCKS, cardiac ablation. See Dr. Gillis's H & P. radiation for prostate cancer Past Anesthesia/Blood Transfusion Reactions: Postoperative Nausea & Vomiting (PONV) Additional Past Anesthesia/Blood Transfusion Reaction / Comment(s): Hx. of N/V. Past Psychological History: No Psychological Hx Reported Smoking Status: Never smoker Past Alcohol Use History: Rare Past Drug Use History: None Reported - Past Family History Sister(s) Family Medical History: Cancer Additional Family Medical History / Comment(s): BREAST PRE CANCER Father Family Medical History: Cancer Additional Family Medical History / Comment(s): SKIN CANCER <Niharika Sun - Last Filed: 06/21/19 20:22> General Exam Limitations: no limitations <Niharika Sun - Last Filed: 06/21/19 20:22> - General Exam Comments Initial Comments: GENERAL: Well-appearing, well-nourished and in no acute distress, appears to be in pain. HEAD: Atraumatic, normocephalic. EYES: Pupils equal round and reactive to light, extraocular movements intact, sclera anicteric, conjunctiva are normal. ENT: TMs normal, nares patent, oropharynx clear without exudates. Moist mucous membranes. NECK: Normal range of motion, supple without lymphadenopathy or JVD. LUNGS: Breath sounds clear to auscultation bilaterally and equal. No wheezes rales or rhonchi. HEART: Regular rate and rhythm without murmurs, rubs or gallops. ABDOMEN: Very tender to palpation of left side, left lower abdomen. Soft, normoactive bowel sounds. no rebound. No masses appreciated. : Deferred EXTREMITIES: Normal range of motion, no pitting or edema. No clubbing or cyanosis. NEUROLOGICAL: Cranial nerves II through XII grossly intact. Normal speech, normal gait. PSYCH: Normal mood, normal affect. SKIN: Warm, Dry, normal turgor, no rashes or lesions noted. (Niharika Sun) Course Vital Signs 06/21/19 06/21/19 06/21/19 15:31 16:35 18:00 Temperature 98.3 F Pulse Rate 74 77 87 Respiratory 18 18 20 Rate Blood Pressure 153/92 145/68 158/95 O2 Sat by Pulse 96 99 96 Oximetry Medical Decision Making - Lab Data Result diagrams: 06/21/19 16:08 06/21/19 16:08 <Kodi Salmeron - Last Filed: 06/21/19 20:06> - Lab Data Result diagrams: 06/21/19 16:08 06/21/19 16:08 <Niharika Sun - Last Filed: 06/21/19 20:22> - Medical Decision Making I saw this patient in conjunction with the physician internet marketing assistant. I performed independent history and physical exam. Agree with case management. (Kodi Salmeron) Patient is a 79-year-old male who presents with left-sided flank pain since early this morning. Upon arrival, vital signs stable, afebrile. Patient appears to be in pain. On exam patient has extreme tenderness to the left flank and left abdominal region. Patient is diaphoretic. CBC shows 8.8 neutrophils. CMP is within normal limits. Lactic acid is 2.1. UA shows small amount of blood, [address] shows a 9 mm obstructing calculus at the left ureter pelvic junction with hydronephrosis. There is also a 10 cm left renal cyst. Patient was given fluids, Toradol, Zofran with improvement in pain. Patient was also given a dose of Rocephin. Case discussed with Dr. Salmeron and patient will be admitted with urology consult. Patient is agreement with this plan. (Niharika Sun) - Lab Data Lab Results 06/21/19 06/21/19 06/21/19 Range/Units 16:08 16:08 16:08 WBC 10.2 (3.8-10.6) k/uL RBC 5.42 (4.30-5.90) m/uL Hgb 16.2 (13.0-17.5) gm/dL Hct 48.7 (39.0-53.0) % MCV 89.9 (80.0-100.0) fL MCH 29.9 (25.0-35.0) pg MCHC 33.2 (31.0-37.0) g/dL RDW 12.8 (11.5-15.5) % Plt Count 245 (150-450) k/uL Neutrophils % 85 % Lymphocytes % 5 % Monocytes % 7 % Eosinophils % 1 % Basophils % 0 % Neutrophils # 8.8 H (1.3-7.7) k/uL Lymphocytes # 0.5 L (1.0-4.8) k/uL Monocytes # 0.8 (0-1.0) k/uL Eosinophils # 0.1 (0-0.7) k/uL Basophils # 0.0 (0-0.2) k/uL Sodium 139 (137-145) mmol/L Potassium 4.6 (3.5-5.1) mmol/L Chloride 105 (98-107) mmol/L Carbon Dioxide 22 (22-30) mmol/L Anion Gap 12 mmol/L BUN 21 H (9-20) mg/dL Creatinine 0.96 (0.66-1.25) mg/dL Est GFR (CKD-EPI)AfAm 87 (>60 ml/min/1.73 sqM) Est GFR (CKD-EPI)NonAf 75 (>60 ml/min/1.73 sqM) Glucose 142 H (74-99) mg/dL Lactic Ac Sepsis Rflx Plasma Lactic Acid Richard 2.1 H* (0.7-2.0) mmol/L Calcium 9.5 (8.4-10.2) mg/dL Total Bilirubin 0.8 (0.2-1.3) mg/dL AST 31 (17-59) U/L ALT 14 L (21-72) U/L Alkaline Phosphatase 73 (38-126) U/L Total Protein 8.1 (6.3-8.2) g/dL Albumin 4.6 (3.5-5.0) g/dL Amylase 52 (30-110) U/L Lipase 24 (23-300) U/L Urine Color Urine Appearance (Clear) Urine pH (5.0-8.0) Ur Specific [place] (1.001-1.035) Urine Protein (Negative) Urine Glucose (UA) (Negative) Urine Ketones (Negative) Urine Blood (Negative) Urine Nitrite (Negative) Urine Bilirubin (Negative) Urine Urobilinogen (<2.0) mg/dL Ur Leukocyte Esterase (Negative) Urine RBC (0-5) /hpf Urine WBC (0-5) /hpf Urine Mucus (None) /hpf 06/21/19 06/21/19 Range/Units 16:25 16:42 WBC (3.8-10.6) k/uL RBC (4.30-5.90) m/uL Hgb (13.0-17.5) gm/dL Hct (39.0-53.0) % MCV (80.0-100.0) fL MCH (25.0-35.0) pg MCHC (31.0-37.0) g/dL RDW (11.5-15.5) % Plt Count (150-450) k/uL Neutrophils % % Lymphocytes % % Monocytes % % Eosinophils % % Basophils % % Neutrophils # (1.3-7.7) k/uL Lymphocytes # (1.0-4.8) k/uL Monocytes # (0-1.0) k/uL Eosinophils # (0-0.7) k/uL Basophils # (0-0.2) k/uL Sodium (137-145) mmol/L Potassium (3.5-5.1) mmol/L Chloride (98-107) mmol/L Carbon Dioxide (22-30) mmol/L Anion Gap mmol/L BUN (9-20) mg/dL Creatinine (0.66-1.25) mg/dL Est GFR (CKD-EPI)AfAm (>60 ml/min/1.73 sqM) Est GFR (CKD-EPI)NonAf (>60 ml/min/1.73 sqM) Glucose (74-99) mg/dL Lactic Ac Sepsis Rflx Y Plasma Lactic Acid Richard (0.7-2.0) mmol/L Calcium (8.4-10.2) mg/dL Total Bilirubin (0.2-1.3) mg/dL AST (17-59) U/L ALT (21-72) U/L Alkaline Phosphatase (38-126) U/L Total Protein (6.3-8.2) g/dL Albumin (3.5-5.0) g/dL Amylase (30-110) U/L Lipase (23-300) U/L Urine Color Yellow Urine Appearance Clear (Clear) Urine pH 7.0 (5.0-8.0) Ur Specific [place] 1.019 (1.001-1.035) Urine Protein 1+ H (Negative) Urine Glucose (UA) Negative (Negative) Urine Ketones Negative (Negative) Urine Blood Small H (Negative) Urine Nitrite Negative (Negative) Urine Bilirubin Negative (Negative) Urine Urobilinogen <2.0 (<2.0) mg/dL Ur Leukocyte Esterase Small H (Negative) Urine RBC 9 H (0-5) /hpf Urine WBC 37 H (0-5) /hpf Urine Mucus Rare H (None) /hpf Disposition <Kodi Salmeron - Last Filed: 06/21/19 20:06> Is patient prescribed a controlled substance at d/c from ED?: No Decision Date: 06/21/19 Decision Time: 20:02 <Niharika Sun - Last Filed: 06/21/19 20:22> Clinical Impression: Hydronephrosis with renal and ureteral calculous obstruction Disposition: ADMITTED IP TO THIS HOSP Condition: Stable Referrals: Fred Becker III, MD [Primary Care Provider] - 1-2 days
--- NOTE | 2019-06-21 19:10 | CT ---
EXAMINATION TYPE: CT abdomen pelvis wo con DATE OF EXAM: 06/21/2019 COMPARISON: 10/08/2018 HISTORY: Left sided pain with bowel changes CT DLP: 919.5 mGycm Automated exposure control for dose reduction was used. TECHNIQUE: Helical acquisition of images was performed from the lung bases through the pelvis. FINDINGS: There is some patchy scarring or atelectasis at the lung bases. There is no pleural effusion. There is small hiatal hernia. There are calcified splenic granulomata. There is no evidence of a panc reatic mass. Liver and gallbladder appear normal. Bile ducts are not dilated. There is no adrenal mass. Left kidney shows hydronephrosis with 9 mm calculus at the left ureteropelv ic junction. There is a 10 cm cortical cyst posterior left kidney with anterior displacement of the l eft kidney. There is left-sided mild perinephric edema. There is no retroperitoneal adenopathy. There are numerous diverticula in the sigmoid colon. Bladder distends smoothly. There is no inguinal hernia. There is no free fluid in the pelvis. There is mild presacral perirectal edema. I see no sign of diverticulitis. Appendix appears normal. There is 5 mm anterior subluxation of L4 in relation L5. There is degenerative multilevel lumbar disc space narrowing. There is no compression fracture. The bony pelvis is intact. There is 20% compression deformity of T11 vertebra. Unchanged IMPRESSION: LARGE LEFT RENAL CYST. OBSTRUCTING CALCULUS AT THE LEFT URETEROPELVIC JUNCTION WITH HYDRONEPHROSIS AN D PERINEPHRIC EDEMA. OBSTRUCTION IS NEW COMPARED TO OLD CT SCAN. SIGMOID DIVERTICULOSIS WITHOUT DIVERTICULITIS. There is presacral edema. This could relate to reaction from prostate cancer treatment. There is clearing of some infiltrate right middle lobe compared to old exam. There is mild basilar pu lmonary scarring and atelectasis unchanged.
[2019-06-21] MEDS ORDERED: ONDANSETRON 4 MG/2 ML VIAL IVP PRN (19:58)
[2019-06-21] MEDS ORDERED: ACETAMINOPHEN TAB 325 MG TAB PO PRN (19:58)
[2019-06-21] MEDS ORDERED: NALOXONE 0.4 MG/ML 1 ML VIAL IV PRN (19:58)
[2019-06-21] MEDS ORDERED: cefTRIAXone IN SWFI 1,000 MG/10 ML SYRINGE IVP STA (20:07)
[2019-06-21] MEDS: SODIUM CHLORIDE 0.9% 1,000 ML IV SCH (21:31)
[2019-06-22] MEDS: KETOROLAC 30 MG/ML 1 ML VIAL IVP PRN ×2 (01:49→08:05)
[2019-06-22 07:05] LABS: INR 2.3 (<1.2); Prothrombin Time 22.1 sec (9.0-12.0)
[2019-06-22] MEDS: amLODIPine 5 MG TAB PO SCH ×2 (08:05→20:18)
[2019-06-22] MEDS: LISINOPRIL 10 MG TAB PO SCH (08:06)
[2019-06-22] MEDS: METOPROLOL TARTRATE 50 MG TAB PO SCH ×2 (08:06→20:17)
[2019-06-22] MEDS: CALCIUM CARBONATE 500 MG CHEWABLE PO SCH (08:06)
[2019-06-22] MEDS: VITAMIN E (DL,TOCOPHERYL ACET) 400 UNIT CAP PO SCH (08:06)
[2019-06-22] MEDS ORDERED: NON-FORMULARY DRUG (Magnesium Oxide [Phillips] 500 MG) PO SCH (09:00)
--- NOTE | 2019-06-22 13:15 | P.HPIM ---
History of Present Illness 79-year-old wasn't gentleman came in with compensative sided abdominal pain and flank pain sharp in nature severe, radiating to the left lower quadrant and anteriorly denied any dysuria denied any fevers was comparing of left flank pain as well. Patient is found to have a cyst on the left kidney along with a 9 mm stone which is contributing to his pain. Patient received pain medication Toradol today morning with improved symptoms. Urology was consulted. Patient does have history of atrial fibrillation on Coumadin INR of 2.2. Patient is receiving IV fluids at this time doesn't have any history of congestive heart failure. Was nauseous but did not throw up symptoms started yesterday evening Review of Systems REVIEW OF SYSTEMS: CONSTITUTIONAL: No fever, no malaise, no fatigue. HEENT: No recent visual problems or hearing problems. Denied any sore throat. CARDIOVASCULAR: No chest pain, orthopnea, PND, no palpitations, no syncope. PULMONARY: No shortness of breath, no cough, no hemoptysis. GASTROINTESTINAL: No diarrhea, NEUROLOGICAL: No headaches, no weakness, no numbness. HEMATOLOGICAL: Denies any bleeding or petechiae. GENITOURINARY: Denies any burning micturition, frequency, or urgency. MUSCULOSKELETAL/RHEUMATOLOGICAL: Denies any joint pain, swelling, or any muscle pain. ENDOCRINE: Denies any polyuria or polydipsia. The rest of the 14-point review of systems is negative. 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 prostate cancer History of Any Multi-Drug Resistant Organisms: None Reported Past Surgical History: Ablation, Joint Replacement, Tonsillectomy Additional Past Surgical History / Comment(s): GAEL. KNEE REPLACEMENT,CIRCUMCISION,HEMORRHOIDECTOMY, LEFT MIDDLE FINGER, RIGHT AND LEFT KNEE ARTHROTOMY, CANCEROUS LESION REMOVED FROM BUTTOCKS, cardiac ablation. See Dr. Gillis's H & P. radiation for prostate cancer Past Anesthesia/Blood Transfusion Reactions: Postoperative Nausea & Vomiting (PONV) Additional Past Anesthesia/Blood Transfusion Reaction / Comment(s): Hx. of N/V. Past Psychological History: No Psychological Hx Reported Smoking Status: Never smoker Past Alcohol Use History: Rare Past Drug Use History: None Reported - Past Family History Sister(s) Family Medical History: Cancer Additional Family Medical History / Comment(s): BREAST PRE CANCER Father Family Medical History: Cancer Additional Family Medical History / Comment(s): SKIN CANCER Medications and Allergies Home Medications Medication Instructions Recorded Confirmed Type Lisinopril 10 mg PO DAILY 06/28/15 06/21/19 History Calcium Carbonate [Calcium] 600 mg PO DAILY 06/21/19 06/21/19 History Magnesium Oxide [Younger] 500 mg PO DAILY 06/21/19 06/21/19 History Metoprolol Tartrate [Lopressor] 150 mg PO BID 06/21/19 06/21/19 History Vitamin E (Dl,Tocopheryl Acet) 400 unit PO DAILY 06/21/19 06/21/19 History [Vitamin E] Warfarin Sodium 5 mg PO SUTUTHSA 06/21/19 06/21/19 History Warfarin Sodium [Coumadin] 7.5 mg PO MOWEFR 06/21/19 06/21/19 History amLODIPine [Norvasc] 2.5 mg PO BID 06/21/19 06/21/19 History Allergies Allergy/AdvReac Type Severity Reaction Status Date / Time flecainide Allergy severe Verified 06/21/19 17:30 weakness morphine Allergy Hallucinations/FELT Verified 06/21/19 17:30 LIKE BUGS CRAWLING" oxycodone Allergy Nausea Verified 06/21/19 17:30 pentazocine lactate Allergy Nausea & Verified 06/21/19 17:30 [From Kristopher] Vomiting Rhrajnt-Ree-Zho Reductase AdvReac severe Verified 06/21/19 17:30 Inhibitor muscle cramps & pain Physical Exam Vitals: Vital Signs Temp Pulse Pulse Resp BP BP Pulse Ox 06/22/19 07:00 99.6 F 95 16 135/75 93 L 06/22/19 01:32 98.6 F 100 18 137/74 93 L 06/21/19 22:12 98.1 F 91 18 151/95 96 06/21/19 21:53 98.3 F 77 20 158/89 95 06/21/19 21:00 78 20 145/68 95 06/21/19 20:00 98.9 F 78 20 147/68 97 06/21/19 19:00 71 20 138/65 99 06/21/19 18:00 87 20 158/95 96 06/21/19 16:35 77 18 145/68 99 06/21/19 15:31 98.3 F 74 18 153/92 96 Intake and Output 06/21/19 06/22/19 06/22/19 22:59 06:59 14:59 Intake Total 500 Balance 500 Intake: Intake, IV Titration 500 Amount Sodium Chloride 0.9% 1, 500 000 ml @ 50 mls/hr IV . Q20H [facility] Rx#:[id number] Other: Voiding Method Toilet Urinal Weight 102.058 kg PHYSICAL EXAMINATION: GENERAL: The patient is alert and oriented x3, not in any acute distress. Well developed, well nourished. HEENT: Pupils are round and equally reacting to light. EOMI. No scleral icterus. No conjunctival pallor. Normocephalic, atraumatic. No pharyngeal erythema. No thyromegaly. CARDIOVASCULAR: S1 and S2 present. No murmurs, rubs, or gallops. PULMONARY: Chest is clear to auscultation, no wheezing or crackles. ABDOMEN: Mild tenderness in the left upper quadrant and the left paraspinal area MUSCULOSKELETAL: No joint swelling or deformity. EXTREMITIES: No cyanosis, clubbing, or pedal edema. NEUROLOGICAL: Gross neurological examination did not reveal any focal deficits. SKIN: No rashes. Results CBC & Chem 7: 06/21/19 16:08 06/21/19 16:08 Labs: Abnormal Lab Results - Last 24 Hours (Table) 06/21/19 06/21/19 06/21/19 Range/Units 16:08 16:08 16:08 Neutrophils # 8.8 H (1.3-7.7) k/uL Lymphocytes # 0.5 L (1.0-4.8) k/uL PT (9.0-12.0) sec INR (<1.2) BUN 21 H (9-20) mg/dL Glucose 142 H (74-99) mg/dL Plasma Lactic Acid Richard 2.1 H* (0.7-2.0) mmol/L ALT 14 L (21-72) U/L Urine Protein (Negative) Urine Blood (Negative) Ur Leukocyte Esterase (Negative) Urine RBC (0-5) /hpf Urine WBC (0-5) /hpf Urine Mucus (None) /hpf 06/21/19 06/22/19 Range/Units 16:25 06:41 Neutrophils # (1.3-7.7) k/uL Lymphocytes # (1.0-4.8) k/uL PT 22.1 H (9.0-12.0) sec INR 2.3 H (<1.2) BUN (9-20) mg/dL Glucose (74-99) mg/dL Plasma Lactic Acid Richard (0.7-2.0) mmol/L ALT (21-72) U/L Urine Protein 1+ H (Negative) Urine Blood Small H (Negative) Ur Leukocyte Esterase Small H (Negative) Urine RBC 9 H (0-5) /hpf Urine WBC 37 H (0-5) /hpf Urine Mucus Rare H (None) /hpf Microbiology - Last 24 Hours (Table) 06/21/19 16:25 Urine Culture - Preliminary Urine,Voided Thrombosis Risk Factor Assmnt - Choose All That Apply Any of the Below Risk Factors Present?: No Each Risk Factor Represents 2 Points: Malignancy Each Risk Factor Represents 3 Points: Age 75 years or older, History of DVT/PE Other congenital or acquired thrombophilia - If yes, enter type in comment: No Thrombosis Risk Factor Assessment Total Risk Factor Score: 8 Thrombosis Risk Factor Assessment Level: High Risk Assessment and Plan Plan: -Left-sided abdominal pain: Secondary to nephrolithiasis: Continue with IV fluids. Nephrology was consulted -Lactic acidosis: Secondary to intravascular depletion although urine is bit abnormal which is secondary to nephrolithiasis I don't have convincing evidence patient has UTI and I do not believe infection is contributing to his lactic acidosis. Patient received 1 dose of antibiotic in ER which will not be continued unless deemed necessary by urology. -Atrial fibrillation proximal A. fib presently sinus rhythm will be continued on his home regimen Coumadin will be held in case if patient need to undergo lithotripsy. -Hyperlipidemia -Hypertension -History of PE in the past -Obesity sleep apnea -For above-mentioned chronic medical problems patient will be continued on appropriate home medications
[2019-06-22] MEDS: Acetaminophen-Codeine 300-30mg TAB PO PRN ×2 (16:46→21:38)
[2019-06-22] MEDS: SODIUM CHLORIDE 0.9% 1,000 ML IV SCH ×2 (16:50→21:38)
[2019-06-22] MEDS ORDERED: WARFARIN 5 MG TAB PO SCH (18:00)
[2019-06-22] MEDS ORDERED: IPRATROPIUM-ALBUTEROL 3 ML NEB INHALATION PRN (22:29)
[2019-06-23] MEDS: Acetaminophen-Codeine 300-30mg TAB PO PRN ×2 (06:25→12:54)
--- NOTE | 2019-06-23 07:30 | P.GSCN ---
History of Present Illness Consult date: 06/22/19 History of present illness: 79 yo male well known to me for bph and stones Admitted with abdominal pain due to a 9mm left upj stone His pain has been controlled with narcotics He is comfortable He is afebrile. Review of Systems All systems: negative - Constitutional Denies fever, Denies weight loss - EENT Eyes: denies blurred vision Ears, nose, mouth and throat: Denies dysphagia - Cardiovascular Denies chest pain, Denies shortness of breath - Respiratory Denies cough, Denies 7 - Gastrointestinal Reports as per HPI - Genitourinary Denies dysuria, Denies hematuria - Integumentary Denies rash, Denies unusual bruising - Neurological Denies headaches, Denies syncope - Hematologic/Lymphatic Denies easy bleeding, Denies easy bruising 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 prostate cancer History of Any Multi-Drug Resistant Organisms: None Reported Past Surgical History: Ablation, Joint Replacement, Tonsillectomy Additional Past Surgical History / Comment(s): GAEL. KNEE REPLACEMENT,CIRC UMCISION,HEMORRHOIDECTOMY, LEFT MIDDLE FINGER, RIGHT AND LEFT KNEE ARTHROTOMY, CANCEROUS LESION REMOVED FROM BUTTOCKS, cardiac ablation. See Dr. Gillis's H & P. radiation for prostate cancer Past Anesthesia/Blood Transfusion Reactions: Postoperative Nausea & Vomiting (PONV) Additional Past Anesthesia/Blood Transfusion Reaction / Comm: Hx. of N/V. Past Psychological History: No Psychological Hx Reported Smoking Status: Never smoker Past Alcohol Use History: Rare Past Drug Use History: None Reported - Past Family History Sister(s) Family Medical History: Cancer Additional Family Medical History / Comment(s): BREAST PRE CANCER Father Family Medical History: Cancer Additional Family Medical History / Comment(s): SKIN CANCER Medications and Allergies Home Medications Medication Instructions Recorded Confirmed Type Lisinopril 10 mg PO DAILY 06/28/15 06/21/19 History Calcium Carbonate [Calcium] 600 mg PO DAILY 06/21/19 06/21/19 History Magnesium Oxide [Younger] 500 mg PO DAILY 06/21/19 06/21/19 History Metoprolol Tartrate [Lopressor] 150 mg PO BID 06/21/19 06/21/19 History Vitamin E (Dl,Tocopheryl Acet) 400 unit PO DAILY 06/21/19 06/21/19 History [Vitamin E] Warfarin Sodium 5 mg PO SUTUTHSA 06/21/19 06/21/19 History Warfarin Sodium [Coumadin] 7.5 mg PO MOWEFR 06/21/19 06/21/19 History amLODIPine [Norvasc] 2.5 mg PO BID 06/21/19 06/21/19 History Allergies Allergy/AdvReac Type Severity Reaction Status Date / Time flecainide Allergy severe Verified 06/21/19 17:30 weakness morphine Allergy Hallucinations/FELT Verified 06/21/19 17:30 LIKE BUGS CRAWLING" oxycodone Allergy Nausea Verified 06/21/19 17:30 pentazocine lactate Allergy Nausea & Verified 06/21/19 17:30 [From Kristopher] Vomiting Tucztms-Qbh-Jeu Reductase AdvReac severe Verified 06/21/19 17:30 Inhibitor muscle cramps & pain Surgical - Exam Vital Signs Temp Pulse Resp BP Pulse Ox 98.3 F 74 18 153/92 96 06/21/19 15:31 06/21/19 15:31 06/21/19 15:31 06/21/19 15:31 06/21/19 15:31 - General well developed, well nourished, no distress - ENT no hearing loss - Neck trachea midline - Respiratory normal expansion, normal respiratory effort - Cardiovascular Rhythm: regularly irregular - Abdomen Abdomen: soft, non tender - Integumentary no rash, no growths - Neurologic normal coordination, normal sensation - Musculoskeletal normal posture - Psychiatric oriented to time, oriented to person, oriented to place, speech is normal, me hever intact Results - Labs 06/21/19 16:08 06/21/19 16:08 Microbiology - Last 24 Hours (Table) 06/21/19 20:30 Blood Culture - Preliminary Blood No Growth after 24 hours - Imaging CT scan - abdomen: report reviewed, image reviewed CT scan - pelvis: report reviewed, image reviewed Assessment and Plan Assessment: Impression: Lt upj stone 9mm with obstruction Plan: I discussed the options of treatment He wants ESWL I will set this up for next friday
--- NOTE | 2019-06-23 07:32 | P.PN ---
Subjective Progress Note Date: 06/23/19 The patient was comfortable overnite on oral pain meds He wants eswl left rather than ureteroscopy I will hold his coumadin He will be set up for the eswl for friday here [facility] He could go home on tylenol #3. Objective - Vital Signs Vital signs: Vital Signs Temp 99.6 F 06/23/19 01:28 Pulse 82 06/23/19 01:28 Resp 18 06/23/19 01:28 BP 108/67 06/23/19 01:28 Pulse Ox 92 L 06/23/19 01:28 Intake & Output 06/22/19 06/23/19 06/23/19 18:59 06:59 18:59 Output Total 375 Balance -375 Output: Urine 375 Other: Voiding Method Urinal # Voids 3 - Labs CBC & Chem 7: 06/21/19 16:08 06/21/19 16:08 Labs: Microbiology - Last 24 Hours (Table) 06/21/19 20:30 Blood Culture - Preliminary Blood No Growth after 24 hours
[2019-06-23 07:45] LABS: INR 1.6 (<1.2); Prothrombin Time 15.8 sec (9.0-12.0)
[2019-06-23 08:11] VITALS: BP 124/75; PULSE 79; RESP 12; TEMP 99.3
[2019-06-23] MEDS: amLODIPine 5 MG TAB PO SCH (08:26)
[2019-06-23] MEDS: LISINOPRIL 10 MG TAB PO SCH (08:27)
[2019-06-23] MEDS: CALCIUM CARBONATE 500 MG CHEWABLE PO SCH (08:27)
[2019-06-23] MEDS: VITAMIN E (DL,TOCOPHERYL ACET) 400 UNIT CAP PO SCH (08:28)
[2019-06-23] MEDS: METOPROLOL TARTRATE 50 MG TAB PO SCH (08:34)
--- NOTE | 2019-06-23 12:45 | P.DS ---
Providers Date of admission: 06/21/19 19:47 Attending physician: Ashleigh Navarro Consults: 06/21/19 19:58 Consult Physician Stat Consulting Provider: Mj Cheng Consult Reason/Comments: 9 mm obstructing left renal calcui Do you want consulting provider notified?: Yes Primary care physician: [facility] Course: 79-year-old wasn't gentleman came in with compensative sided abdominal pain and flank pain sharp in nature severe, radiating to the left lower quadrant and anteriorly denied any dysuria denied any fevers was comparing of left flank pain as well. Patient is found to have a cyst on the left kidney along with a 9 mm stone which is contributing to his pain. Patient received pain medication Toradol today morning with improved symptoms. Urology was consulted. Patient does have history of atrial fibrillation on Coumadin INR of 2.2. Patient is receiving IV fluids at this time doesn't have any history of congestive heart failure. Was nauseous but did not throw up symptoms started yesterday evening. 06/23/2019 Patient is clinically doing well and patient was evaluated by urology in the recommending outpatient lithotripsy on pill than the recommending to hold Coumadin Coumadin will be held and patient will be discharged today. Patient will be discharged on Tylenol 3 as requested radiology and asked patient to take [id number] medications for constipation if needed. Patient was having some inflammatory bronchitis for which she'll not require any antibiotics PHYSICAL EXAMINATION: GENERAL: The patient is alert and oriented x3, not in any acute distress. Well developed, well nourished. HEENT: Pupils are round and equally reacting to light. EOMI. No scleral icterus. No conjunctival pallor. Normocephalic, atraumatic. No pharyngeal erythema. No thyromegaly. CARDIOVASCULAR: S1 and S2 present. No murmurs, rubs, or gallops. PULMONARY: Chest is clear to auscultation, no wheezing or crackles. ABDOMEN: Mild tenderness in the left upper quadrant and the left paraspinal area MUSCULOSKELETAL: No joint swelling or deformity. EXTREMITIES: No cyanosis, clubbing, or pedal edema. NEUROLOGICAL: Gross neurological examination did not reveal any focal deficits. SKIN: No rashes. Assessment and Plan Plan: -Left-sided abdominal pain: Secondary to nephrolithiasis: Lithotripsy on Friday pain medications as mentioned above -Lactic acidosis: Secondary to intravascular depletion although urine is bit abnormal which is secondary to nephrolithiasis I don't have convincing evidence patient has UTI and I do not believe infection is contributing to his lactic acidosis. Patient received 1 dose of antibiotic in ER which will not be continued unless deemed necessary by urology. -Atrial fibrillation proximal A. fib presently sinus rhythm will be continued on his home regimen Coumadin will be held in case if patient need to undergo lithotripsy. -Hyperlipidemia -Hypertension -History of PE in the past -Obesity sleep apnea Patient Condition at Discharge: Stable Plan - Discharge Summary Discharge Rx Participant: Yes New Discharge Prescriptions: New Polyethylene Glycol 3350 [Miralax] 17 gm PO DAILY PRN #15 packet PRN Reason: Constipation Acetaminophen-Codeine 300-30mg [Tylenol w/codeine #3] 1 each PO Q4HR PRN #20 tab PRN Reason: moderate Pain Albuterol Inhaler [Ventolin Hfa Inhaler] 1 - 2 puff INHALATION Q6HR PRN #1 inhaler PRN Reason: Shortness Of Breath Or Wheezing Continue Lisinopril 10 mg PO DAILY Vitamin E (Dl,Tocopheryl Acet) [Vitamin E] 400 unit PO DAILY Magnesium Oxide [Younger] 500 mg PO DAILY Calcium Carbonate [Calcium] 600 mg PO DAILY Metoprolol Tartrate [Lopressor] 150 mg PO BID Warfarin Sodium [Coumadin] 7.5 mg PO MOWEFR #0 Warfarin Sodium 5 mg PO SUTUTHSA #0 Changed amLODIPine [Norvasc] 2.5 mg PO DAILY #0 Discharge Medication List Lisinopril 10 mg PO DAILY 06/28/15 [History] Calcium Carbonate [Calcium] 600 mg PO DAILY 06/21/19 [History] Magnesium Oxide [Younger] 500 mg PO DAILY 06/21/19 [History] Metoprolol Tartrate [Lopressor] 150 mg PO BID 06/21/19 [History] Vitamin E (Dl,Tocopheryl Acet) [Vitamin E] 400 unit PO DAILY 06/21/19 [History] Acetaminophen-Codeine 300-30mg [Tylenol w/codeine #3] 1 each PO Q4HR PRN #20 tab 06/23/19 [Rx] Albuterol Inhaler [Ventolin Hfa Inhaler] 1 - 2 puff INHALATION Q6HR PRN #1 inhaler 06/23/19 [Rx] Polyethylene Glycol 3350 [Miralax] 17 gm PO DAILY PRN #15 packet 06/23/19 [Rx] Warfarin Sodium 5 mg PO SUTUTHSA #0 06/23/19 [Rx] Warfarin Sodium [Coumadin] 7.5 mg PO MOWEFR #0 06/23/19 [Rx] amLODIPine [Norvasc] 2.5 mg PO DAILY #0 06/23/19 [Rx] Follow up Appointment(s)/Referral(s): Fred Becker III, MD [Primary Care Provider] - 06/29/19 11:30 am Patient Instructions/Handouts: Hydronephrosis (DC) Activity/Diet/Wound Care/Special Instructions: Call Dr Carrasquillo's office on June to schedule a time for lithotripsey for FridayJune 28. Do not take Coumadin dose until Dr Carrasquillo instructs to resume after the procedure on Friday Discharge Disposition: HOME SELF-CARE
[2019-06-23] MEDS ORDERED: WARFARIN 7.5 MG TAB PO SCH (18:00)
== END 2019-06-23 14:01 | disposition home or self-care (01) | DRG 694 ==
LOC: EC 15:25 → 4SSUR 19:47
PROVIDERS: ADMIT Hospitalist; ATTEND Hospitalist
DX: N13.2 Hydronephrosis with renal and ureteral calculous obstruction (principal); E87.2 Acidosis; E66.9 Obesity, unspecified; E78.5 Hyperlipidemia, unspecified; G47.30 Sleep apnea, unspecified; I10 Essential (primary) hypertension; I48.91 Unspecified atrial fibrillation; N28.1 Cyst of kidney, acquired; M19.90 Unspecified osteoarthritis, unspecified site; J40 Bronchitis, not specified as acute or chronic; N40.0 Benign prostatic hyperplasia without lower urinary tract symptoms; Z96.659 Presence of unspecified artificial knee joint; Z79.01 Long term (current) use of anticoagulants; Z79.899 Other long term (current) drug therapy; Z80.8 Family history of malignant neoplasm of other organs or systems; Z85.46 Personal history of malignant neoplasm of prostate; Z86.711 Personal history of pulmonary embolism; Z88.4 Allergy status to anesthetic agent; Z88.5 Allergy status to narcotic agent; Z88.8 Allergy status to other drugs, medicaments and biological substances; Z90.49 Acquired absence of other specified parts of digestive tract; Z90.89 Acquired absence of other organs; Z99.89 Dependence on other enabling machines and devices
CPT/HCPCS: 36415; 74176; 80053; 81001; 82150; 83605; 83690; 85025; 85610; 87040; 87077; 87086; 87186; 94640; 96361; 96374; 96375; 99285

== ENCOUNTER 2019-06-28 08:03 | Day surgery (SDC) | payer MEDICARE ==
[2019-06-24 11:31] VITALS: BMI 34.7
--- NOTE | 2019-06-25 09:50 | P.GSHP ---
History of Present Illness H&P Date: 06/25/19 79 yo male known to me for stones recently was in [facility] with a 9mm left proximal ureteral stone he comes for ESWL left He has been off his coumadin for 5 days. - Constitutional Constitutional: Denies chills, Denies fever - EENT Eyes: denies blurred vision, denies pain Ears, nose, mouth and throat: Denies headache, Denies sore throat - Cardiovascular Cardiovascular: Denies chest pain, Denies shortness of breath - Respiratory Respiratory: Denies cough, Denies 7 - Gastrointestinal Gastrointestinal: Denies abdominal pain, Denies diarrhea, Denies nausea, Denies vomiting - Genitourinary (Female) Genitourinary: Denies dysuria, Denies hematuria - Genitourinary (Male) Genitourinary: Denies dysuria, Denies hematuria - Musculoskeletal Musculoskeletal: Denies myalgias - Integumentary Integumentary: Denies pruritus, Denies rash - Neurological Neurological: Denies numbness, Denies weakness - Psychiatric Psychiatric: Denies anxiety, Denies depression - Endocrine Endocrine: Denies fatigue, Denies weight change Past Medical History Past Medical History: Atrial Fibrillation, Cancer, COPD, GI Bleed, Hyperlipidemia, Hypertension, Osteoarthritis (OA), Prostate Disorder, Pulmonary Embolus (PE), Sleep Apnea/CPAP/BIPAP Additional Past Medical History / Comment(s): 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 Legs weak R/T hx statins. uses CPAP, Enlarged Prostate, PET scan in the past. Prostate Cancer, Had Radiation, Now on Hormone [place]. Kidney Stone currently. Lge cyst Lt Kidney. c/o bloated, no appetite currently. History of Any Multi-Drug Resistant Organisms: None Reported Past Surgical History: Ablation, Joint Replacement, Orthopedic Surgery, Tonsillectomy Additional Past Surgical History / Comment(s): RAVI. KNEE REPLACEMENT, CIRCUMCISION, HEMORRHOIDECTOMY, LEFT MIDDLE FINGER, RT AND LT KNEE ARTHROTOMY, CANCEROUS LESION REMOVED FROM BUTTOCKS, Cardiac Ablation x3. Lesion Exc Ureter; Radiation for Prostate CA Past Anesthesia/Blood Transfusion Reactions: Postoperative Nausea & Vomiting (PONV) Additional Past Anesthesia/Blood Transfusion Reaction / Comment(s): PONV MANY YEARS AGO Smoking Status: Never smoker - Past Family History Sister(s) Family Medical History: Cancer Additional Family Medical History / Comment(s): BREAST PRE CANCER Brother(s) Family Medical History: Deep Vein Thrombosis (DVT) Father Family Medical History: Cancer Additional Family Medical History / Comment(s): SKIN CANCER Medications and Allergies Home Medications Medication Instructions Recorded Confirmed Type Lisinopril 10 mg PO HS 06/28/15 06/24/19 History Calcium Carbonate [Calcium] 600 mg PO DAILY 06/21/19 06/24/19 History Metoprolol Tartrate [Lopressor] 150 mg PO BID 06/21/19 06/24/19 History Acetaminophen-Codeine 300-30mg 1 each PO Q4HR PRN #20 tab 06/23/19 06/24/19 Rx [Tylenol w/codeine #3] Albuterol Inhaler [Ventolin Hfa 1 - 2 puff INHALATION Q6HR PRN #1 06/23/19 06/24/19 Rx Inhaler] inhaler Warfarin Sodium 5 mg PO SUTUTHSA #0 06/23/19 06/24/19 Rx Warfarin Sodium [Coumadin] 7.5 mg PO MOWEFR #0 06/23/19 06/24/19 Rx amLODIPine [Norvasc] 2.5 mg PO DAILY #0 06/23/19 06/24/19 Rx Docusate Sodium [Dok] 250 mg PO QID PRN 06/24/19 06/24/19 History Allergies Allergy/AdvReac Type Severity Reaction Status Date / Time flecainide Allergy severe Verified 06/24/19 10:52 weakness morphine Allergy Hallucinations/FELT Verified 06/24/19 10:52 LIKE BUGS CRAWLING" oxycodone Allergy Nausea Verified 06/24/19 10:52 pentazocine lactate Allergy Nausea & Verified 06/24/19 10:52 [From Talwin] Vomiting Konmxzx-Pjs-Ped Reductase AdvReac severe Verified 06/24/19 10:52 Inhibitor muscle cramps & pain Surgical - Exam - General well developed, well nourished, moderate distress - Eyes PERRL - ENT no hearing loss - Neck no masses - Respiratory normal expansion, normal respiratory effort - Cardiovascular Rhythm: regular - Abdomen Abdomen: soft, tender - Genitourinary normal penis with no external lesions, testicles present - Integumentary no rash, no growths - Neurologic normal coordination - Musculoskeletal normal gait, normal posture - Psychiatric oriented to time, oriented to person, oriented to place, speech is normal, memory intact Results - Imaging Abdominal x-ray: report reviewed, image reviewed CT scan - abdomen: report reviewed, image reviewed CT scan - pelvis: report reviewed, image reviewed Assessment and Plan Assessment: Impression 9 mm proximal ureteral stone left Plan: eswl left
[~2019-06-28 08:03] MED LIST: Pre Op ABX Message 1 EACH MISC MISCELLANE ONE
--- NOTE | 2019-06-28 08:33 | XR ---
KUB HISTORY: Left ureteral calculus Frontal KUB and [address] 06/21/2019 There is a calcification present at the L4-5 disc space level in the left paraspinal location measuri ng approximately 9 mm in greatest dimension. The lung bases are clear. No pneumoperitoneum or bowel obstruction. Surgical clips present in the lef t gluteal region. Degenerative disc changes are present in the visualized spine. IMPRESSION: Left ureteral calculus
[2019-06-28 09:06] VITALS: TEMP 97.1
[2019-06-28] MEDS ORDERED: LACTATED RINGERS 1,000 ML IV ONE (09:06)
[2019-06-28] MEDS ORDERED: LIDOCAINE 1% 20 ML VIAL (10MG/ML) FOR IV START INTRADERMA ONE (09:07)
[2019-06-28] MEDS ORDERED: PROPOFOL 10 MG/ML 20 ML VIAL IV ONE (09:51)
[2019-06-28] MEDS ORDERED: LIDOCAINE 1% INJ 10MG/ML (20 ML MDV) ONE (09:51)
--- NOTE | 2019-06-28 10:47 | P.OP ---
Date of Procedure: 06/28/19 Preoperative Diagnosis: Left ureteral calculus Postoperative Diagnosis: Left ureteral calculus Procedure(s) Performed: Extracorporeal shockwave lithotripsy of left ureteral calculus Anesthesia: MAC Surgeon: Mj Cheng Urine output (ml): 0 Pathology: none sent Condition: stable Disposition: PACU Indications for Procedure: The patient is an 79-year-old male recently developed severe left flank pain secondary to a 6 x 8 mm proximal left ureteral calculus. Treatment options were reviewed with Dr. Carrasquillo and the patient has elected to proceed with ESWL. Description of Procedure: The patient was taken the operating suite and placed in the supine position on the fluoroscopy table. The left ureteral calculus was localized using biplanar fluoroscopy. Intravenous sedation was given. Lithotripsy was performed using the Dornier compact delta unit. The patient received 1100 shocks at level 4 and and 1400 shocks at level 5-all at 80 shocks per minute. It was unclear whether the calculus fragmented. The anesthesia was reversed and the patient was taken to the recovery room awake and in satisfactory condition. He will be seen back by Dr. Carrasquillo in 1 week at which time a KUB will be obtained.
[2019-06-28] MEDS ORDERED: Acetaminophen-Codeine 300-30mg TAB PO ONE (11:41)
[2019-06-28 12:56] VITALS: BP 152/80; PULSE 85; RESP 17
== END 2019-06-28 12:58 | disposition home or self-care (01) ==
LOC: ORWHC2ENDO 08:03
PROVIDERS: ATTEND Urology
DX: N20.1 Calculus of ureter (principal); I10 Essential (primary) hypertension; E78.5 Hyperlipidemia, unspecified; G47.33 Obstructive sleep apnea (adult) (pediatric); Z99.89 Dependence on other enabling machines and devices; J44.9 Chronic obstructive pulmonary disease, unspecified; M19.90 Unspecified osteoarthritis, unspecified site; I48.91 Unspecified atrial fibrillation; Z86.711 Personal history of pulmonary embolism; Z87.19 Personal history of other diseases of the digestive system; Z88.5 Allergy status to narcotic agent; Z88.8 Allergy status to other drugs, medicaments and biological substances; Z85.828 Personal history of other malignant neoplasm of skin; Z85.46 Personal history of malignant neoplasm of prostate; Z92.3 Personal history of irradiation; Z96.653 Presence of artificial knee joint, bilateral; Z80.8 Family history of malignant neoplasm of other organs or systems; Z79.01 Long term (current) use of anticoagulants; Z79.899 Other long term (current) drug therapy
CPT/HCPCS: 74018; 50590; J2001; J2704

== ENCOUNTER 2019-07-05 12:29 | Inpatient (IN) | payer MEDICARE ==
[2019-07-05] MEDS ORDERED: KETOROLAC 30 MG/ML 1 ML VIAL IVP STA (13:59)
[2019-07-05] MEDS ORDERED: SODIUM CHLORIDE 0.9% 500 ML 500 ML IV STA ×2 (13:59→16:15)
--- NOTE | 2019-07-05 15:03 | ED ---
General Adult HPI - General Chief complaint: Urogenital Stated complaint: Sent by [facility] Time Seen by Provider: 07/05/19 13:24 Source: patient, RN notes reviewed Mode of arrival: ambulatory Limitations: no limitations - History of Present Illness Initial comments: 79-year-old male presents to the emergency department for a chief complaint of left flank pain. Patient was diagnosed with a 9 mm proximal ureteral calculus on 06/21/2019. Patient was admitted at that time and subsequently discharged with a plan for outpatient lithotripsy. This appears to have been completed on 06/28/2019 however was apparently unsuccessful. Patient went to urology today for a follow-up. X-ray of the abdomen was obtained this morning which revealed a 9 mm mid ureteral kidney stone. He stated at that time he felt weak and he was not eating or drinking normally because of pain. Therefore urology referred him to the emergency department. Patient does state he feels somewhat more weak than normal and not being able to eat or drink. Denies vomiting. Patient has no other complaints at this time including shortness of breath, chest pain, abdominal pain, nausea or vomiting, headache, or visual changes. - Related Data Home Medications Medication Instructions Recorded Confirmed Lisinopril 10 mg PO HS 06/28/15 07/05/19 Metoprolol Tartrate [Lopressor] 150 mg PO BID 06/21/19 07/05/19 Albuterol Inhaler [Ventolin Hfa 1 - 2 puff INHALATION RT-Q6H PRN 07/05/19 07/05/19 Inhaler] Albuterol Nebulized [Ventolin 2.5 mg INHALATION DIRECTED 07/05/19 07/05/19 Nebulized] Tamsulosin [Flomax] 0.4 mg PO BID 07/05/19 07/05/19 Previous Rx's Medication Instructions Recorded Warfarin Sodium 5 mg PO SUTUTHSA #0 06/23/19 Warfarin Sodium [Coumadin] 7.5 mg PO MOWEFR #0 06/23/19 amLODIPine [Norvasc] 2.5 mg PO DAILY #0 06/23/19 Acetaminophen-Codeine 300-30mg 1 tab PO Q6H PRN #10 tablet 06/28/19 [Tylenol w/codeine #3] Allergies Allergy/AdvReac Type Severity Reaction Status Date / Time flecainide Allergy severe Verified 07/05/19 13:07 weakness morphine Allergy Hallucinations/FELT Verified 07/05/19 13:07 LIKE BUGS CRAWLING" oxycodone Allergy Nausea Verified 07/05/19 13:07 pentazocine lactate Allergy Nausea & Verified 07/05/19 13:07 [From Kristopher] Vomiting Zzonwzz-Qjf-Lar Reductase AdvReac severe Verified 07/05/19 13:07 Inhibitor muscle cramps & pain Review of Systems ROS Statement: Those systems with pertinent positive or pertinent negative responses have been documented in the HPI. ROS Other: All systems not noted in ROS Statement are negative. 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 Legs weak R/T hx statins. uses CPAP, Enlarged Prostate, PET scan in the past. Prostate Cancer, Had Radiation, Now on Hormone [place]. Kidney Stone currently. Lge cyst Lt Kidney. c/o bloated, no appetite currently. History of Any Multi-Drug Resistant Organisms: None Reported Past Surgical History: Ablation, Joint Replacement, Orthopedic Surgery, Tonsillectomy Additional Past Surgical History / Comment(s): GAEL. KNEE REPLACEMENT, CIRCUMCISION, HEMORRHOIDECTOMY, LEFT MIDDLE FINGER, RT AND LT KNEE ARTHROTOMY, CANCEROUS LESION REMOVED FROM BUTTOCKS, Cardiac Ablation x3. Lesion Exc Ureter; Radiation for Prostate CA Past Anesthesia/Blood Transfusion Reactions: Postoperative Nausea & Vomiting (PONV) Additional Past Anesthesia/Blood Transfusion Reaction / Comment(s): PONV MANY YEARS AGO Past Psychological History: No Psychological Hx Reported Smoking Status: Never smoker Past Alcohol Use History: None Reported Past Drug Use History: None Reported - Past Family History Sister(s) Family Medical History: Cancer Additional Family Medical History / Comment(s): BREAST PRE CANCER Brother(s) Family Medical History: Deep Vein Thrombosis (DVT) Father Family Medical History: Cancer Additional Family Medical History / Comment(s): SKIN CANCER General Exam Limitations: no limitations General appearance: alert, in no apparent distress Head exam: Present: atraumatic, normocephalic, normal inspection Eye exam: Present: normal appearance, PERRL, EOMI. Absent: scleral icterus, conjunctival injection, periorbital swelling ENT exam: Present: normal exam, mucous membranes moist Neck exam: Present: normal inspection, full ROM. Absent: tenderness, meningismus, lymphadenopathy Respiratory exam: Present: normal lung sounds bilaterally. Absent: respiratory distress, wheezes, rales, rhonchi, stridor Cardiovascular Exam: Present: regular rate, normal rhythm, normal heart sounds. Absent: systolic murmur, diastolic murmur, rubs, gallop, clicks GI/Abdominal exam: Present: soft, normal bowel sounds. Absent: distended, tenderness (No abdominal tenderness noted), guarding, rebound, rigid Back exam: Present: CVA tenderness (L). Absent: CVA tenderness (R) Neurological exam: Present: alert Psychiatric exam: Present: normal affect, normal mood Course Vital Signs 07/05/19 07/05/19 07/05/19 12:35 14:49 15:50 Temperature 97.8 F Pulse Rate 63 61 Respiratory 18 16 16 Rate Blood Pressure 95/64 116/69 O2 Sat by Pulse 99 94 L Oximetry - Reevaluation(s) Reevaluation #1: 07/05/19 16:17 X-ray KUB shows a stable left mid ureteral colic is measuring approximately 9 mm. This was done today around 10 AM. Medical Decision Making - Medical Decision Making 79-year-old male presents to the emergency department for left flank pain for 2 weeks nausea and anorexia. Patient feels somewhat weak from this. CBC does show a drop in hemoglobin from 16.2-12.8. Patient recently stopped his Coumadin 4 days ago and is denying any rectal bleeding or other bleeding. There is possibility this is secondary to lithotripsy procedure. Does have been stable throughout patient's stay. He was given a liter of fluids due to clinical dehydration. Zande show left CVA tenderness without any abdominal tenderness. Otherwise unremarkable. CMP does show an elevated creatinine of 1.59 and a BUN of 26, which is above patient's baseline. Potassium of 5.2 also elevated likely due to acute kidney injury. Urine is unremarkable. Straight from earlier today was reviewed which showed a 9 mm kidney stone in the left mid ureter. At this time Dr. Mehta spoke with Dr. Velasco who recommends holding Coumadin as well as urology consult. Recommends admission to medicine, Dr. Navarro does accept. Patient will be admitted - Lab Data Result diagrams: 07/05/19 15:25 07/05/19 15:25 Lab Results 07/05/19 07/05/19 07/05/19 Range/Units 15:25 15:25 15:25 WBC 7.8 (3.8-10.6) k/uL RBC 4.26 L (4.30-5.90) m/uL Hgb 12.8 L D (13.0-17.5) gm/dL Hct 38.8 L (39.0-53.0) % MCV 90.9 (80.0-100.0) fL MCH 30.0 (25.0-35.0) pg MCHC 33.0 (31.0-37.0) g/dL RDW 12.9 (11.5-15.5) % Plt Count 284 (150-450) k/uL Neutrophils % 82 % Lymphocytes % 7 % Monocytes % 8 % Eosinophils % 2 % Basophils % 1 % Neutrophils # 6.3 (1.3-7.7) k/uL Lymphocytes # 0.5 L (1.0-4.8) k/uL Monocytes # 0.6 (0-1.0) k/uL Eosinophils # 0.2 (0-0.7) k/uL Basophils # 0.0 (0-0.2) k/uL PT (9.0-12.0) sec INR (<1.2) APTT (22.0-30.0) sec Sodium 138 (137-145) mmol/L Potassium 5.2 H (3.5-5.1) mmol/L Chloride 103 (98-107) mmol/L Carbon Dioxide 26 (22-30) mmol/L Anion Gap 9 mmol/L BUN 26 H (9-20) mg/dL Creatinine 1.56 H (0.66-1.25) mg/dL Est GFR (CKD-EPI)AfAm 48 (>60 ml/min/1.73 sqM) Est GFR (CKD-EPI)NonAf 41 (>60 ml/min/1.73 sqM) Glucose 109 H (74-99) mg/dL Plasma Lactic Acid Richard 1.1 (0.7-2.0) mmol/L Calcium 9.0 (8.4-10.2) mg/dL Magnesium 2.2 (1.6-2.3) mg/dL Total Bilirubin 0.8 (0.2-1.3) mg/dL AST 17 (17-59) U/L ALT 20 L (21-72) U/L Alkaline Phosphatase 68 (38-126) U/L Total Protein 7.5 (6.3-8.2) g/dL Albumin 4.0 (3.5-5.0) g/dL Amylase 47 (30-110) U/L Lipase 38 (23-300) U/L Urine Color Urine Appearance (Clear) Urine pH (5.0-8.0) Ur Specific [place] (1.001-1.035) Urine Protein (Negative) Urine Glucose (UA) (Negative) Urine Ketones (Negative) Urine Blood (Negative) Urine Nitrite (Negative) Urine Bilirubin (Negative) Urine Urobilinogen (<2.0) mg/dL Ur Leukocyte Esterase (Negative) 07/05/19 07/05/19 Range/Units 15:33 16:15 WBC (3.8-10.6) k/uL RBC (4.30-5.90) m/uL Hgb (13.0-17.5) gm/dL Hct (39.0-53.0) % MCV (80.0-100.0) fL MCH (25.0-35.0) pg MCHC (31.0-37.0) g/dL RDW (11.5-15.5) % Plt Count (150-450) k/uL Neutrophils % % Lymphocytes % % Monocytes % % Eosinophils % % Basophils % % Neutrophils # (1.3-7.7) k/uL Lymphocytes # (1.0-4.8) k/uL Monocytes # (0-1.0) k/uL Eosinophils # (0-0.7) k/uL Basophils # (0-0.2) k/uL PT 11.4 (9.0-12.0) sec INR 1.1 (<1.2) APTT 24.6 (22.0-30.0) sec Sodium (137-145) mmol/L Potassium (3.5-5.1) mmol/L Chloride (98-107) mmol/L Carbon Dioxide (22-30) mmol/L Anion Gap mmol/L BUN (9-20) mg/dL Creatinine (0.66-1.25) mg/dL Est GFR (CKD-EPI)AfAm (>60 ml/min/1.73 sqM) Est GFR (CKD-EPI)NonAf (>60 ml/min/1.73 sqM) Glucose (74-99) mg/dL Plasma Lactic Acid Richard (0.7-2.0) mmol/L Calcium (8.4-10.2) mg/dL Magnesium (1.6-2.3) mg/dL Total Bilirubin (0.2-1.3) mg/dL AST (17-59) U/L ALT (21-72) U/L Alkaline Phosphatase (38-126) U/L Total Protein (6.3-8.2) g/dL Albumin (3.5-5.0) g/dL Amylase (30-110) U/L Lipase (23-300) U/L Urine Color Yellow Urine Appearance Clear (Clear) Urine pH 5.5 (5.0-8.0) Ur Specific [place] 1.018 (1.001-1.035) Urine Protein Trace H (Negative) Urine Glucose (UA) Negative (Negative) Urine Ketones Negative (Negative) Urine Blood Negative (Negative) Urine Nitrite Negative (Negative) Urine Bilirubin Negative (Negative) Urine Urobilinogen <2.0 (<2.0) mg/dL Ur Leukocyte Esterase Negative (Negative) Disposition Clinical Impression: Acute kidney injury, Ureterolithiasis, Hyperkalemia Disposition: ADMITTED IP TO THIS HOSP Condition: Fair Is patient prescribed a controlled substance at d/c from ED?: No Referrals: Fred Becker III, MD [Primary Care Provider] - 1-2 days Time of Disposition: 18:33
[2019-07-05] MEDS ORDERED: ONDANSETRON 4 MG/2 ML VIAL IVP STA (15:14)
[2019-07-05 15:56] LABS: Basophils % (A) 1 %; Eosinophils # (A) 0.2 k/uL (0-0.7); Eosinophils % (A) 2 %; HCT 38.8 % (39.0-53.0); Lymphocytes # (A) 0.5 k/uL (1.0-4.8); Lymphocytes % (A) 7 %; MCV 90.9 fL (80.0-100.0); Mean Platelet Volume 6.4; Monocytes # (A) 0.6 k/uL (0-1.0); Monocytes % (A) 8 %; Neutrophils # (A) 6.3 k/uL (1.3-7.7); Neutrophils % (A) 82 %; Platelet Count 284 k/uL (150-450); RBC 4.26 m/uL (4.30-5.90); RDW 12.9 % (11.5-15.5); WBC 7.8 k/uL (3.8-10.6)
[2019-07-05 16:04] LABS: HGB 12.8 gm/dL (13.0-17.5)
[2019-07-05 16:05] LABS: Magnesium 2.2 mg/dL (1.6-2.3); Potassium 5.2 mmol/L (3.5-5.1); Total Bilirubin 0.8 mg/dL (0.2-1.3); Total Protein 7.5 g/dL (6.3-8.2)
[2019-07-05 16:54] LABS: Appearance,Urine Clear (Clear); Bilirubin,Urine Negative (Negative); Blood,Urine Negative (Negative); Color,Urine Yellow; Glucose,Urine (UA) Negative (Negative); Ketones,Urine Negative (Negative); Leukocyte Esterase,Urine Negative (Negative); Nitrite,Urine Negative (Negative); PH, Urine 5.5 (5.0-8.0); Protein,Urine Trace (Negative); Specific Gravity,Urine 1.018 (1.001-1.035); Urobilinogen,Urine <2.0 mg/dL (<2.0)
[2019-07-05 17:40] LABS: INR 1.1 (<1.2); Partial Thromboplastin Time 24.6 sec (22.0-30.0); Prothrombin Time 11.4 sec (9.0-12.0)
[2019-07-05] MEDS ORDERED: NALOXONE 0.4 MG/ML 1 ML VIAL IV PRN (18:42)
[2019-07-05] MEDS ORDERED: HYDROmorphone 0.5 MG/0.5 ML SYRINGE IVP PRN (18:44)
[2019-07-05] MEDS ORDERED: ALPRAZolam 0.25 MG TAB PO PRN (19:04)
[2019-07-05] MEDS ORDERED: TEMAZEPAM 15 MG CAP PO PRN (19:04)
[2019-07-05] MEDS ORDERED: ALBUTEROL NEBULIZED 2.5 MG/3 ML INHALATION PRN (19:05)
[2019-07-05] MEDS ORDERED: HEPARIN SODIUM,PORCINE 5,000 UNIT/ML 1 ML VIAL IV PRN (19:06)
[2019-07-05] MEDS ORDERED: HEPARIN SODIUM,PORCINE 10,000 UNIT/ML 1 ML VIAL IV ONE (19:06)
[2019-07-05] MEDS ORDERED: ALBUTEROL NEBULIZED 2.5 MG/3 ML INHALATION SCH (19:15)
[2019-07-05] MEDS: SODIUM CHLORIDE 0.9% 1,000 ML IV SCH (19:40)
--- NOTE | 2019-07-05 19:48 | XR ---
EXAMINATION TYPE: XR chest 1V portable DATE OF EXAM: 07/05/2019 COMPARISON: 10/08/2018 HISTORY: Kidney stones. Heart failure. Short of breath TECHNIQUE: Single frontal view of the chest is obtained. FINDINGS: There is some mild atelectasis at the lung bases. Heart size is normal. There is no heart failure. There are no hilar masses. Lungs are clear of consolidation. IMPRESSION: There is mild atelectasis at the lung bases increased compared to old exam. No heart matilde lure.
[2019-07-05] MEDS: HEPARIN SOD,PORK IN 0.45% NACL 25,000 UNIT in 0.45% NACL 1 250ML.BAG IV SCH (21:37)
[2019-07-05] MEDS: LISINOPRIL 10 MG TAB PO SCH (21:38)
[2019-07-05] MEDS: PANTOPRAZOLE 40 MG/10 ML VIAL IVP SCH ×2 (21:38→22:00)
[2019-07-05] MEDS: METOPROLOL TARTRATE 50 MG TAB PO SCH (21:38)
[2019-07-05] MEDS: TAMSULOSIN 0.4 MG CAP.ER.24H PO SCH (21:39)
--- NOTE | 2019-07-05 22:04 | HP ---
HISTORY AND PHYSICAL DATE OF SERVICE: 07/05/2019 CHIEF COMPLAINT: Abdominal pain as well as nausea and vomiting. HISTORY OF PRESENT ILLNESS: This 79-year-old gentleman with a past medical history of multiple medical problems, including history of atrial fibrillation, COPD, GI bleed, hypertension, hyperlipidemia, DJD, history of prostate disorder, history of bilateral pulmonary embolism, sleep apnea, being followed by Dr. Becker in the outpatient setting, was previously admitted with left-sided abdominal pain secondary to urolithiasis. The patient also had multiple other medical issues, including lactic acidosis and atrial fibrillation. The patient apparently had attempted extracorporeal shock lithotripsy of left ureteral calculus. It is unclear whether the calculus fragmented. The patient reports passing very teeny specks of stones after the procedure, but subsequently patient has been complaining continuous pains. The patient is also taking some pain medication and was complaining of nausea, vomiting, tiredness and weakness. The patient came to [facility] and was admitted for further evaluation and treatment. The patient was found to have acute renal failure with the creatinine elevated to 1.56. The patient was admitted for further evaluation and treatment. There is no history of any fever, rigor or chills. No history of headache, loss of consciousness, seizures. There is no history of fever rigors no headache loss or seizures at this time. PAST MEDICAL HISTORY: 1. History of atrial fibrillation. 2. History of COPD. 3. GI bleed. 4. Hypertension. 5. Hyperlipidemia. 6. History of DJD. 7. History of pulmonary embolism. HOME MEDICATIONS: 1. Norvasc 2.5 mg p.o. daily. 2. Coumadin 7.5, Friday, Friday, Friday. 3. Coumadin 5 mg Friday, Friday, , Friday. 4. Flomax 0.4 b.i.d. 5. Lopressor 150 mg p.o. b.i.d. 6. Lisinopril 10 mg at bedtime. 7. Ventolin 2.5 p.r.n. 8. Ventolin HFA 1-2 puffs q.6 p.r.n. 9. Tylenol q.6 p.r.n. ALLERGIES: 1. FLECAINIDE. 2. MORPHINE. 3. OXYCODONE. 4. PENTAZOCINE. 5. STATINS. FAMILY HISTORY: History of skin cancer in the family. SOCIAL HISTORY: No history of smoking. Occasional alcohol intake. REVIEW OF SYSTEMS: ENT: No diminished hearing. No diminished vision. CARDIOVASCULAR SYSTEM: No angina, palpitations. RESPIRATORY SYSTEM: As mentioned earlier. GI: As mentioned earlier. : As mentioned earlier. NERVOUS SYSTEM: No numbness, weakness. ALLERGY/IMMUNOLOGY: No asthma, hayfever. MUSCULOSKELETAL: As mentioned earlier. HEMATOLOGY/ONCOLOGY: As mentioned earlier. ENDOCRINE: No history of diabetes, hypothyroidism. CONSTITUTIONAL: As mentioned earlier. DERMATOLOGY: Negative. RHEUMATOLOGY: Negative. PSYCHIATRY: As mentioned earlier. PHYSICAL EXAMINATION: Patient alert and oriented x3. Pulse 67, blood pressure 134/79, respirations 16, temperature 97.5, pulse ox 95% on room air. HEENT: Conjunctivae normal. Oral mucosa moist. NECK: No jugular venous distention. No carotid bruit. No lymph node enlargement. CARDIOVASCULAR SYSTEM: S1, S2 muffled. No S3. No S4. RESPIRATORY SYSTEM: Breath sounds diminished at the bases. No rhonchi. No crackles. ABDOMEN: Soft. Mild diffuse tenderness on the left side of the abdomen present. No guarding. No rigidity. No mass palpable. LEGS: No edema. No swelling. NERVOUS SYSTEM: Higher functions as mentioned earlier. Moves all 4 limbs. No focal motor or sensory deficit. LYMPHATICS: No lymph node palpable in neck, axillae or groin. SKIN: No ulcer, rash, bleeding. JOINTS: No active deforming arthropathy. LABS: WBC 7.3, hemoglobin 12.6. Sodium 138, potassium 5.2. Creatinine is 1.56. ASSESSMENT: 1. Left ureteral lithiasis with severe pain, status post extracorporeal shock wave lithotripsy. 2. Incessant nausea and vomiting; possible acute gastritis. 3. Acute renal failure, possibly acute prerenal renal failure with acute tubular necrosis. 4. Anemia, normocytic; anemia of chronic disease. 5. Mild hyperkalemia. 6. History of atrial fibrillation. 7. Chronic obstructive pulmonary disease. 8. History of gastrointestinal bleed. 9. Hypertension. 10.Hyperlipidemia. 11.History of degenerative joint disease. 12.History of prostate disorder. 13.History of pulmonary embolism. 14.Coumadin monitoring. 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 16.History of bilateral knee replacements. RECOMMENDATIONS AND DISCUSSION: In this 79-year-old gentleman who presented with multiple complex medical issues, at this time I recommend to continue current medications, continue with symptomatic treatment. Otherwise at this time, I would recommend proton pump inhibitors, IV fluids, n.p.o. diet. Once the patient is not throwing up, clear liquids may be initiated. Urology will be consulted. Repeat labs will be ordered. The prognosis is guarded because of multiple complex medical issues. Further recommendations to follow. A copy of this dictation is being forwarded to Dr. Becker, who is the primary physician. MMODL / IJN: [id number] /
[2019-07-05 22:24] VITALS: BMI 32.8
[2019-07-06 04:11] LABS: Basophils % (A) 1 %; Eosinophils # (A) 0.3 k/uL (0-0.7); Eosinophils % (A) 4 %; HCT 38.3 % (39.0-53.0); HGB 12.7 gm/dL (13.0-17.5); Lymphocytes # (A) 0.4 k/uL (1.0-4.8); Lymphocytes % (A) 6 %; MCH 29.8 pg (25.0-35.0); MCV 90.2 fL (80.0-100.0); Mean Platelet Volume 6.4; Monocytes # (A) 0.6 k/uL (0-1.0); Monocytes % (A) 9 %; Neutrophils # (A) 5.1 k/uL (1.3-7.7); Neutrophils % (A) 79 %; Platelet Count 260 k/uL (150-450); RBC 4.25 m/uL (4.30-5.90); RDW 12.8 % (11.5-15.5); WBC 6.5 k/uL (3.8-10.6)
[2019-07-06 04:20] LABS: Calcium 8.9 mg/dL (8.4-10.2); Potassium 4.4 mmol/L (3.5-5.1)
[2019-07-06] MEDS: HYDROmorphone 0.5 MG/0.5 ML SYRINGE IVP PRN ×3 (04:27→21:21)
[2019-07-06] MEDS: PANTOPRAZOLE 40 MG/10 ML VIAL IVP SCH (09:31)
[2019-07-06] MEDS: METOPROLOL TARTRATE 50 MG TAB PO SCH ×2 (09:31→21:18)
[2019-07-06] MEDS: SODIUM CHLORIDE 0.9% 1,000 ML IV SCH (09:31)
--- NOTE | 2019-07-06 10:13 | P.GSCN ---
History of Present Illness Consult date: 07/06/19 History of present illness: The patient is known to me for ureteral calculi. He recently was in the office with a 9 mm proximal ureteral stone. He underwent shockwave lithotripsy but the stone did not fracture. He ended up in the hospital with nausea vomiting pain. On KUB done the stone still in the proximal ureter. He'll be set up for ureteroscopy and laser lithotripsy. Review of Systems All systems: negative - Constitutional Denies fever, Denies weight loss - EENT Eyes: denies blurred vision Ears, nose, mouth and throat: Denies dysphagia - Cardiovascular Denies chest pain, Denies shortness of breath - Respiratory Denies cough, Denies 7 - Gastrointestinal Reports as per HPI - Genitourinary Denies dysuria, Denies hematuria - Integumentary Denies rash, Denies unusual bruising - Neurological Denies headaches, Denies syncope - Hematologic/Lymphatic Denies easy bleeding, Denies easy bruising Past Medical History Past Medical History: Atrial Fibrillation, Cancer, COPD, GI Bleed, Hyperlipidemia, Hypertension, Osteoarthritis (OA), Prostate Disorder, Pulmonary Embolus (PE), Sleep Apnea/CPAP/BIPAP Additional Past Medical History / Comment(s): 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 Legs weak R/T hx statins. uses CPAP, Enlarged Prostate, PET scan in the past. Prostate Cancer, Had Radiation, Now on Hormone [place]. Kidney Stone currently. Lge cyst Lt Kidney. c/o bloated, no appetite currently. History of Any Multi-Drug Resistant Organisms: None Reported Past Surgical History: Ablation, Joint Replacement, Orthopedic Surgery, Tonsillectomy Additional Past Surgical History / Comment(s): RAVI. KNEE REPLACEMENT, CIRCUMCISION, HEMORRHOIDECTOMY, LEFT MIDDLE FINGER, RT AND LT KNEE ARTHROTOMY, CANCEROUS LESION REMOVED FROM BUTTOCKS, Cardiac Ablation x3. Lesion Exc Ureter; Radiation for Prostate CA Past Anesthesia/Blood Transfusion Reactions: Postoperative Nausea & Vomiting (PONV) Additional Past Anesthesia/Blood Transfusion Reaction / Comm: PONV MANY YEARS AGO Past Psychological History: No Psychological Hx Reported Smoking Status: Never smoker Past Alcohol Use History: None Reported Past Drug Use History: None Reported - Past Family History Sister(s) Family Medical History: Cancer Additional Family Medical History / Comment(s): BREAST PRE CANCER Brother(s) Family Medical History: Deep Vein Thrombosis (DVT) Father Family Medical History: Cancer Additional Family Medical History / Comment(s): SKIN CANCER Medications and Allergies Home Medications Medication Instructions Recorded Confirmed Type Lisinopril 10 mg PO HS 06/28/15 07/05/19 History Metoprolol Tartrate [Lopressor] 150 mg PO BID 06/21/19 07/05/19 History Warfarin Sodium 5 mg PO SUTUTHSA #0 06/23/19 07/05/19 Rx Warfarin Sodium [Coumadin] 7.5 mg PO MOWEFR #0 06/23/19 07/05/19 Rx amLODIPine [Norvasc] 2.5 mg PO DAILY #0 06/23/19 07/05/19 Rx Acetaminophen-Codeine 300-30mg 1 tab PO Q6H PRN #10 tablet 06/28/19 07/05/19 Rx [Tylenol w/codeine #3] Albuterol Inhaler [Ventolin Hfa 1 - 2 puff INHALATION RT-Q6H PRN 07/05/19 07/05/19 History Inhaler] Albuterol Nebulized [Ventolin 2.5 mg INHALATION DIRECTED 07/05/19 07/05/19 History Nebulized] Tamsulosin [Flomax] 0.4 mg PO BID 07/05/19 07/05/19 History Allergies Allergy/AdvReac Type Severity Reaction Status Date / Time flecainide Allergy severe Verified 07/05/19 13:07 weakness morphine Allergy Hallucinations/FELT Verified 07/05/19 13:07 LIKE BUGS CRAWLING" oxycodone Allergy Nausea Verified 07/05/19 13:07 pentazocine lactate Allergy Nausea & Verified 07/05/19 13:07 [From Kristopher] Vomiting Ufvbvlf-Pny-Cft Reductase AdvReac severe Verified 07/05/19 13:07 Inhibitor muscle cramps & pain Surgical - Exam Vital Signs Temp Pulse Resp BP Pulse Ox 97.8 F 63 18 95/64 99 07/05/19 12:35 07/05/19 12:35 07/05/19 12:35 07/05/19 12:35 07/05/19 12:35 - General well developed, well nourished, moderate distress - ENT no hearing loss - Neck no masses, trachea midline - Respiratory normal expansion, normal respiratory effort - Cardiovascular Rhythm: irregularly irregular - Abdomen Abdomen: soft, tender - Genitourinary normal penis with no external lesions, testicles present - Integumentary no rash, no growths - Neurologic normal coordination, normal sensation - Musculoskeletal normal posture - Psychiatric oriented to time, oriented to person, oriented to place, speech is normal, memory intact Results - Labs 07/06/19 03:58 07/06/19 03:58 Abnormal Lab Results - Last 24 Hours (Table) 07/05/19 07/05/19 07/05/19 Range/Units 15:25 15:25 16:15 RBC 4.26 L (4.30-5.90) m/uL Hgb 12.8 L D (13.0-17.5) gm/dL Hct 38.8 L (39.0-53.0) % Lymphocytes # 0.5 L (1.0-4.8) k/uL APTT (22.0-30.0) sec Potassium 5.2 H (3.5-5.1) mmol/L BUN 26 H (9-20) mg/dL Creatinine 1.56 H (0.66-1.25) mg/dL Glucose 109 H (74-99) mg/dL ALT 20 L (21-72) U/L Urine Protein Trace H (Negative) 07/06/19 07/06/19 07/06/19 Range/Units 03:58 03:58 03:58 RBC 4.25 L (4.30-5.90) m/uL Hgb 12.7 L (13.0-17.5) gm/dL Hct 38.3 L (39.0-53.0) % Lymphocytes # 0.4 L (1.0-4.8) k/uL APTT 90.0 H (22.0-30.0) sec Potassium (3.5-5.1) mmol/L BUN 26 H (9-20) mg/dL Creatinine 1.40 H (0.66-1.25) mg/dL Glucose 104 H (74-99) mg/dL ALT (21-72) U/L Urine Protein (Negative) Diabetes panel 07/05/19 07/06/19 Range/Units 15:25 03:58 Sodium 138 138 (137-145) mmol/L Potassium 5.2 H 4.4 (3.5-5.1) mmol/L Chloride 103 105 (98-107) mmol/L Carbon Dioxide 26 24 (22-30) mmol/L BUN 26 H 26 H (9-20) mg/dL Creatinine 1.56 H 1.40 H (0.66-1.25) mg/dL Glucose 109 H 104 H (74-99) mg/dL Calcium 9.0 8.9 (8.4-10.2) mg/dL AST 17 (17-59) U/L ALT 20 L (21-72) U/L Alkaline Phosphatase 68 (38-126) U/L Total Protein 7.5 (6.3-8.2) g/dL Albumin 4.0 (3.5-5.0) g/dL Calcium panel 07/05/19 07/06/19 Range/Units 15:25 03:58 Calcium 9.0 8.9 (8.4-10.2) mg/dL Albumin 4.0 (3.5-5.0) g/dL Pituitary panel 07/05/19 07/06/19 Range/Units 15:25 03:58 Sodium 138 138 (137-145) mmol/L Potassium 5.2 H 4.4 (3.5-5.1) mmol/L Chloride 103 105 (98-107) mmol/L Carbon Dioxide 26 24 (22-30) mmol/L BUN 26 H 26 H (9-20) mg/dL Creatinine 1.56 H 1.40 H (0.66-1.25) mg/dL Glucose 109 H 104 H (74-99) mg/dL Calcium 9.0 8.9 (8.4-10.2) mg/dL Adrenal panel 07/05/19 07/06/19 Range/Units 15:25 03:58 Sodium 138 138 (137-145) mmol/L Potassium 5.2 H 4.4 (3.5-5.1) mmol/L Chloride 103 105 (98-107) mmol/L Carbon Dioxide 26 24 (22-30) mmol/L BUN 26 H 26 H (9-20) mg/dL Creatinine 1.56 H 1.40 H (0.66-1.25) mg/dL Glucose 109 H 104 H (74-99) mg/dL Calcium 9.0 8.9 (8.4-10.2) mg/dL Total Bilirubin 0.8 (0.2-1.3) mg/dL AST 17 (17-59) U/L ALT 20 L (21-72) U/L Alkaline Phosphatase 68 (38-126) U/L Total Protein 7.5 (6.3-8.2) g/dL Albumin 4.0 (3.5-5.0) g/dL - Imaging Abdominal x-ray: report reviewed, image reviewed Assessment and Plan Assessment: Impression: Left ureteral calculus with persistent colic Recommendations: Ureteroscopy with laser lithotripsy.
[2019-07-06] MEDS: HEPARIN SOD,PORK IN 0.45% NACL 25,000 UNIT in 0.45% NACL 1 250ML.BAG IV SCH (10:24)
[2019-07-06] MEDS: TAMSULOSIN 0.4 MG CAP.ER.24H PO SCH ×2 (12:36→21:19)
[2019-07-06] MEDS ORDERED: IV FLUID CONTINUATION 700 ML IV ONE (13:54)
[2019-07-06] MEDS: ONDANSETRON 4 MG/2 ML VIAL IVP PRN ×2 (14:29→18:13)
[2019-07-06] MEDS ORDERED: MIDAZOLAM 2 MG/2 ML VIAL ONE (14:31)
[2019-07-06] MEDS ORDERED: ceFAZolin 1,000 MG VIAL ONE (14:31)
[2019-07-06] MEDS ORDERED: SUCCINYLCHOLINE CHLORIDE 100 MG/5 ML SYR IV ONE (14:31)
[2019-07-06] MEDS ORDERED: fentaNYL (PF) 50 MCG/ML 2 ML AMP ONE (14:31)
[2019-07-06] MEDS ORDERED: LIDOCAINE 1% INJ 10MG/ML (20 ML MDV) ONE (14:31)
[2019-07-06] MEDS ORDERED: PROPOFOL 10 MG/ML 20 ML VIAL IV ONE (14:31)
[2019-07-06] MEDS: SODIUM CHLORIDE 0.9% 50 ML with ceFAZolin 2,000 MG IV ONE ×4 (14:50→17:58)
[2019-07-06] MEDS ORDERED: LACTATED RINGERS 1,000 ML IV ONE (16:05)
--- NOTE | 2019-07-06 16:15 | P.OP ---
Date of Procedure: 07/06/19 Preoperative Diagnosis: Left ureteral calculus Postoperative Diagnosis: Same Procedure(s) Performed: Cystoscopy, left ureteroscopy laser lithotripsy, 6 x 26 stent Anesthesia: ROSENDO Surgeon: Aldair Carrasquillo Pathology: none sent Condition: stable Disposition: PACU Indications for Procedure: The patient is a 79. He underwent shockwave lithotripsy week ago for a 9 mm proximal ureteral stone. It did not fracture. He ended up in the hospital yesterday with pain. He is seen this morning we discussed options and plan on doing ureteroscopy laser lithotripsy Description of Procedure: Patient brought to the operating suite. He is given a general anesthetic. He's placed lithotomy position with sterile prep and drape. The stone is seen under fluoroscopy. Cystoscopy Foroblique lens and 22-[place] sheath identifies partially obstructing prostate. Ureteral orifices riding high and lateral. It is small and difficult to identify. I finally unable to identify and pass and a 6-[place] open-ended catheter and probing with the 035 wire and identifying the ureter. Wires passed up into the renal pelvis. I removed the cystoscope. Over the wires passed [id number] reentry sheath. This is up to just distal to the stone. I passed the flexible ureteroscope up to the stone. I first attempted to do laser lithotripsy with 3 W of energy but the stone migrates quickly up into the renal pelvis. I followed up in the renal pelvis. It moved to a lower pole calyx and is very difficult to identify. I do a little bit of an infundibulotomy just access the stone. It is still difficult identified. I finally given up as I'm unable to access the stone adequately. I then backload ed the wire into the renal pelvis. The wires backloaded on the cystoscope and over the wires passed a 6 x 26 double-J catheter Impression left ureteral stone that is migrating lower pole calyx Recommendations: Options include shockwave lithotripsy repeat ureteroscopy or percutaneous nephrostolithotomy. This we discussed the patient and his .
--- NOTE | 2019-07-06 17:00 | PN ---
PROGRESS NOTE DATE OF SERVICE: 07/06/2019 This 79-year-old gentleman who was admitted with left ureterolithiasis with severe pain, had extracorporal shock wave lithotripsy. Dr. Carrasquillo is planning ureteroscopy and laser lithotripsy today. Please also note, the patient was not taking food for several days and also had some renal failure at this time. No chest pain. No palpitations. No fever. EXAM: Alert and oriented times three. Pulse is 56. Blood pressure 132/80, respiration 18, temperature 98.8, pulse ox 97% on room air. HEENT: Conjunctivae normal. Neck: No JVD. CARDIOVASCULAR: S1, S2 muffled. RESPIRATORY: Breath sounds diminished in the bases. No rhonchi. No crackles. Abdomen is soft. Mild diffuse tenderness present in the left side of the abdomen. No guarding. No rigidity. No mass palpable. LEGS are no edema. No swelling. CENTRAL NERVOUS SYSTEM: No focal deficits. LABORATORY DATA: WBC 6.2, hemoglobin 12.7, creatinine is 1.40. ASSESSMENT: 1. Left ureteral lithiasis, severe pain, status post extracorporeal shock wave lithotripsy for ureteroscopy and laser lithotripsy today. 2. Increased nausea, vomiting possibly acute gastritis. 3. Acute renal failure possibly prerenal acute renal failure with acute tubular necrosis and dehydration, present on admission. 4. Anemia, normocytic anemia of chronic disease. 5. Mild hyperkalemia secondary to renal failure. 6. History of atrial fibrillation. 7. Chronic obstructive pulmonary disease. 8. History of gastrointestinal bleed. 9. History of hypertension. 10.Hyperlipidemia. 11.History of degenerative joint disease. 12.History of prostate disorder. 13.History of pulmonary embolus. 14.Coumadin monitoring. 15.History of [place] cell carcinoma of the gluteal region. 16.History of bilateral knee replacement. RECOMMENDATIONS AND DISCUSSION: I recommend to continue current medications, management and symptomatic treatment. Otherwise recommendations per Urology. Creatinine has improved to 1.40. We will continue with IV hydration. Continue with rest of symptomatic treatment. Repeat labs in the morning and further recommendations to follow. Prognosis guarded. MMODL / IJN: [id number] /
[2019-07-06] MEDS: amLODIPine 2.5 MG TAB PO SCH (17:58)
[2019-07-06] MEDS: PANTOPRAZOLE 40 MG TABLET PO SCH (18:10)
[2019-07-06 18:38] LABS: INR 1.1 (<1.2); Prothrombin Time 11.2 sec (9.0-12.0)
[2019-07-06] MEDS: LISINOPRIL 10 MG TAB PO SCH (21:17)
[2019-07-07] MEDS: HYDROmorphone 0.5 MG/0.5 ML SYRINGE IVP PRN (00:39)
[2019-07-07] MEDS: SODIUM CHLORIDE 0.9% 1,000 ML IV SCH ×2 (02:06→09:06)
[2019-07-07] MEDS ORDERED: HYDROmorphone 0.5 MG/0.5 ML SYRINGE ONE (04:45)
[2019-07-07 06:19] VITALS: RESP 16; TEMP 98.9
[2019-07-07 08:24] LABS: Basophils % (A) 0 %; Eosinophils # (A) 0.1 k/uL (0-0.7); Eosinophils % (A) 2 %; HCT 34.5 % (39.0-53.0); HGB 11.4 gm/dL (13.0-17.5); Lymphocytes # (A) 0.4 k/uL (1.0-4.8); Lymphocytes % (A) 6 %; MCH 30.5 pg (25.0-35.0); MCV 92.3 fL (80.0-100.0); Mean Platelet Volume 6.8; Monocytes # (A) 0.6 k/uL (0-1.0); Monocytes % (A) 8 %; Neutrophils # (A) 6.1 k/uL (1.3-7.7); Neutrophils % (A) 83 %; Platelet Count 239 k/uL (150-450); RBC 3.73 m/uL (4.30-5.90); RDW 12.9 % (11.5-15.5); WBC 7.3 k/uL (3.8-10.6)
[2019-07-07 08:35] LABS: Calcium 8.1 mg/dL (8.4-10.2); Potassium 4.3 mmol/L (3.5-5.1)
--- NOTE | 2019-07-07 09:01 | FL ---
EXAMINATION TYPE: FL guidance operating room DATE OF EXAM: 07/06/2019 HISTORY: Flouroscopy time 120 seconds of fluoroscopy provided. IMPRESSION: 1. Fluoroscopy time.
[2019-07-07] MEDS: METOPROLOL TARTRATE 50 MG TAB PO SCH (09:06)
[2019-07-07] MEDS: TAMSULOSIN 0.4 MG CAP.ER.24H PO SCH (09:06)
[2019-07-07] MEDS: amLODIPine 2.5 MG TAB PO SCH (09:06)
[2019-07-07] MEDS: PANTOPRAZOLE 40 MG TABLET PO SCH (09:06)
[2019-07-07] MEDS ORDERED: BISACODYL 5 MG TABLET.DR PO PRN (09:08)
--- NOTE | 2019-07-07 10:11 | P.PN ---
Subjective Progress Note Date: 07/07/19 The patient underwent left ureteroscopy and laser lithotripsy yesterday. I was unable to completely remove the stone is at migrated into a anterior calyx lower pole. After an hour and half of attempt at getting the stone double-J catheter is placed. I spoke with the patient today and gave him his options of no treatment versus repeat ureteroscopy versus repeat shockwave lithotripsy versus percutaneous nephrostolithotomy. He will go home with the double-J catheter in our repeat an x-ray in a week prior to his postop visit and we'll make a decision as to how to treat it based on the appearance and location of the stone at the time of that x-ray. He will only need Tylenol or Motrin for pain Objective - Vital Signs Vital signs: Vital Signs Temp 98.9 F 07/07/19 05:35 Pulse 73 07/07/19 05:35 Resp 16 07/07/19 05:35 BP 117/66 07/07/19 05:35 Pulse Ox 93 L 07/07/19 05:35 Intake & Output 07/06/19 07/07/19 07/07/19 18:59 06:59 18:59 Intake Total 1850 778 Output Total 5 500 1050 Balance 1845 -500 -272 Weight 97.976 kg Intake: IV 1250 Intake, IV Titration 600 Amount Sodium Chloride 0.9% 1, 600 000 ml @ 75 mls/hr IV . [id number] [facility] Rx#:[id number] Oral 778 Output: Urine 500 1050 Estimated Blood Loss 5 Other: Voiding Method Toilet Urinal # Voids 3 # Bowel Movements 0 - Labs CBC & Chem 7: 07/07/19 07:34 07/07/19 07:34 Labs: Abnormal Lab Results - Last 24 Hours (Table) 07/07/19 07/07/19 Range/Units 07:34 07:34 RBC 3.73 L (4.30-5.90) m/uL Hgb 11.4 L (13.0-17.5) gm/dL Hct 34.5 L (39.0-53.0) % Lymphocytes # 0.4 L (1.0-4.8) k/uL Glucose 122 H (74-99) mg/dL Calcium 8.1 L (8.4-10.2) mg/dL
[2019-07-07 11:03] LABS: INR 1.2 (<1.2); Prothrombin Time 12.3 sec (9.0-12.0)
[2019-07-07 13:36] VITALS: BP 108/67; PULSE 70
--- NOTE | 2019-07-07 16:52 | P.DS ---
Providers Date of admission: 07/05/19 18:24 Expected date of discharge: 07/07/19 Attending physician: Ashleigh Navarro Consults: 07/05/19 18:43 Consult Physician Routine Consulting Provider: Johnathon Velasco Consult Reason/Comments: Ureterolithiasis Do you want consulting provider notified?: Yes Primary care physician: [facility] Course: Final diagnosis Left ureteral lithiasis, severe pain, status post extracorporeal shockwave lithotripsy for ureteroscopy and laser lithotripsy Increased nausea, vomiting possibly acute gastritis Acute renal failure as the prerenal acute renal failure with acute tubular necrosis and dehydration, present on admission Anemia, normocytic anemia of chronic disease Mild hyperkalemia secondary to renal failure History of atrial fibrillation chronic obstructive pulmonary disease history of gastrointestinal bleed History of hypertension Hyperlipidemia History of degenerative joint disease History of prostate disorder History of pulmonary embolus Coumadin monitoring 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 Patient is to follow-up with urology as discussed. Patient will resume his Coumadin and follow-up with primary care provider in 2-3 days for INR monitoring. History of present illness This is an 79-year-old male who was recently admitted for left ureteral lithiasis and was being followed closely with urology. Patient underwent extracorporeal shockwave lithotripsy. Per urology the stone was not completely removed and has migrated into an anterior calyx of the lower pole of the left side. Patient will be going home with a double-J catheter placed and will follow-up in the outpatient setting in 1 week. Patient is having occasional nausea that has gotten better. Patient will be sent home with some Zofran as needed for nausea or vomiting. Patient's current creatinine is 1.11, potassium is 4.3, sodium is 138. Patient will follow-up with primary care provider for repeat labs in 2-3 days. Patient is currently stable with improvement and would like to go home today. On exam vital signs are stable. The pressure is 108/67, pulse is 70, respirations are 16, temp is 98.9F, oxygen saturation is 93% on room air. Cardio S1 and S2 are muffled. Respiratory system shows diminished breath sounds in the bases otherwise clear to auscultation. Abdomen is soft, obese, and nontender. Nervous system shows no focal deficits. Please refer to medication reconciliation sheet for a list of medications. Patient Condition at Discharge: Fair Plan - Discharge Summary Discharge Rx Participant: No New Discharge Prescriptions: New Ondansetron [Zofran] 4 mg PO Q8HR PRN 3 Days #9 tab PRN Reason: Nausea Continue Lisinopril 10 mg PO HS Metoprolol Tartrate [Lopressor] 150 mg PO BID Warfarin Sodium [Coumadin] 7.5 mg PO MOWEFR #0 amLODIPine [Norvasc] 2.5 mg PO DAILY #0 Warfarin Sodium 5 mg PO SUTUTHSA #0 Acetaminophen-Codeine 300-30mg [Tylenol w/codeine #3] 1 tab PO Q6H PRN #10 tablet PRN Reason: Pain Tamsulosin [Flomax] 0.4 mg PO BID Albuterol Nebulized [Ventolin Nebulized] 2.5 mg INHALATION DIRECTED Albuterol Inhaler [Ventolin Hfa Inhaler] 1 - 2 puff INHALATION RT-Q6H PRN PRN Reason: Shortness Of Breath Or Wheezing Discharge Medication List Lisinopril 10 mg PO HS 06/28/15 [History] Metoprolol Tartrate [Lopressor] 150 mg PO BID 06/21/19 [History] Warfarin Sodium 5 mg PO SUTUTHSA #0 06/23/19 [Rx] Warfarin Sodium [Coumadin] 7.5 mg PO MOWEFR #0 06/23/19 [Rx] amLODIPine [Norvasc] 2.5 mg PO DAILY #0 06/23/19 [Rx] Acetaminophen-Codeine 300-30mg [Tylenol w/codeine #3] 1 tab PO Q6H PRN #10 tablet 06/28/19 [Rx] Albuterol Inhaler [Ventolin Hfa Inhaler] 1 - 2 puff INHALATION RT-Q6H PRN 07/05/19 [History] Albuterol Nebulized [Ventolin Nebulized] 2.5 mg INHALATION DIRECTED 07/05/19 [History] Tamsulosin [Flomax] 0.4 mg PO BID 07/05/19 [History] Ondansetron [Zofran] 4 mg PO Q8HR PRN 3 Days #9 tab 07/07/19 [Rx] Follow up Appointment(s)/Referral(s): Fred Becker III, MD [Primary Care Provider] - 07/09/19 1:00 pm Aldair Carrasquillo MD [STAFF PHYSICIAN] - 07/20/19 12:40 pm Ambulatory/Diagnostic Orders: Prothrombin Time INR [LAB.AMB] Time Frame: 2 Days, Location: None Selected Patient Instructions/Handouts: Hematuria (GEN), Lithotripsy (DC) Activity/Diet/Wound Care/Special Instructions: KUB xray at hospital prior to appointment with Dr. Carrasquillo Activity Limited until follow-up Follow-up with Dr. Carrasquillo as scheduled Follow-up with primary care provider Repeat PT/INR in 2-3 days. May continue taking Tylenol or Motrin for pain and discomfort Discharge Disposition: HOME SELF-CARE
[2019-07-07] MEDS ORDERED: WARFARIN 7.5 MG TAB PO SCH (18:00)
[2019-07-08] MEDS ORDERED: WARFARIN 5 MG TAB PO SCH (18:00)
== END 2019-07-07 14:00 | disposition home or self-care (01) | DRG 659 ==
LOC: EC 12:29 → 4MS4W 18:24
PROVIDERS: ADMIT Hospitalist; ATTEND Hospitalist
PROC: 0TF78ZZ Fragmentation in Left Ureter, Via Natural or Artificial Opening Endoscopic (ICD-10-PCS; principal; 2019-07-06 10:05)
PROC: 0T778DZ Dilation of Left Ureter with Intraluminal Device, Via Natural or Artificial Opening Endoscopic (ICD-10-PCS; principal; 2019-07-06 10:05)
DX: N20.1 Calculus of ureter (principal); N17.0 Acute kidney failure with tubular necrosis; E87.5 Hyperkalemia; J44.9 Chronic obstructive pulmonary disease, unspecified; I10 Essential (primary) hypertension; D63.8 Anemia in other chronic diseases classified elsewhere; E66.9 Obesity, unspecified; E78.5 Hyperlipidemia, unspecified; G47.30 Sleep apnea, unspecified; I48.91 Unspecified atrial fibrillation; E86.0 Dehydration; M19.90 Unspecified osteoarthritis, unspecified site; N40.0 Benign prostatic hyperplasia without lower urinary tract symptoms; Z96.653 Presence of artificial knee joint, bilateral; Z79.01 Long term (current) use of anticoagulants; Z79.899 Other long term (current) drug therapy; Z80.8 Family history of malignant neoplasm of other organs or systems; Z85.821 Personal history of Merkel cell carcinoma; Z85.46 Personal history of malignant neoplasm of prostate; Z87.442 Personal history of urinary calculi; Z86.711 Personal history of pulmonary embolism; Z88.5 Allergy status to narcotic agent; Z88.8 Allergy status to other drugs, medicaments and biological substances; Z90.89 Acquired absence of other organs; Z90.49 Acquired absence of other specified parts of digestive tract; Z98.890 Other specified postprocedural states; Z82.49 Family history of ischemic heart disease and other diseases of the circulatory system
CPT/HCPCS: 36415; 71045; 80048; 80053; 81003; 82150; 83605; 83690; 83735; 85025; 85610; 85730; 96361; 96374; 96375; 99285

== ENCOUNTER → 2019-07-05 | Outpatient (CLI) | payer MEDICARE ==
--- NOTE | 2019-07-05 11:07 | XR ---
EXAMINATION TYPE: XR KUB DATE OF EXAM: 07/05/2019 COMPARISON: 06/28/2019 HISTORY: Post lithotripsy TECHNIQUE: One view abdominal series FINDINGS: Hypertrophic and degenerative change spine. Postsurgical changes overlying the left femur. Arthropath y of the hips bilaterally. There is a stable appearing calcification within the expected location of the left mid ureter at the L 3-4 level. Hypertrophic and degenerative changes spine. Bowel gas pattern nonspecific. IMPRESSION: 1. Stable left mid ureteral calculus measuring approximately 9 mm
== END ==
LOC: RADXRMAIN 10:40
PROVIDERS: ATTEND Urology
DX: N20.1 Calculus of ureter (principal)
CPT/HCPCS: 74018

== ENCOUNTER → 2019-07-20 | Outpatient (CLI) | payer MEDICARE ==
[2019-07-20 16:52] LABS: Basophils # (A) 0.1 k/uL (0-0.2); Basophils % (A) 1 %; Eosinophils # (A) 0.4 k/uL (0-0.7); Eosinophils % (A) 7 %; HCT 38.7 % (39.0-53.0); HGB 12.6 gm/dL (13.0-17.5); Lymphocytes # (A) 0.5 k/uL (1.0-4.8); Lymphocytes % (A) 9 %; MCH 29.2 pg (25.0-35.0); MCHC 32.5 g/dL (31.0-37.0); MCV 89.7 fL (80.0-100.0); Mean Platelet Volume 6.5; Monocytes # (A) 0.4 k/uL (0-1.0); Monocytes % (A) 6 %; Neutrophils # (A) 4.5 k/uL (1.3-7.7); Neutrophils % (A) 75 %; Platelet Count 242 k/uL (150-450); RBC 4.31 m/uL (4.30-5.90)
[2019-07-20 16:59] LABS: Appearance,Urine Clear (Clear); Bilirubin,Urine Negative (Negative); Blood,Urine Small (Negative); Color,Urine Yellow; Glucose,Urine (UA) Negative (Negative); Hyaline Casts,Urine 21 /lpf (0-2); Ketones,Urine Negative (Negative); Leukocyte Esterase,Urine Trace (Negative); Mucus,Urine Rare /hpf; Nitrite,Urine Negative (Negative); Protein,Urine 1+ (Negative); RBC,Urine 30 /hpf (0-5); Specific Gravity,Urine 1.017 (1.001-1.035); Squamous Epithelial Cell,Urine <1 /hpf (0-4); Urobilinogen,Urine <2.0 mg/dL (<2.0); WBC,Urine 3 /hpf (0-5)
[2019-07-20 17:22] LABS: Calcium 9.6 mg/dL (8.4-10.2); Potassium 5.4 mmol/L (3.5-5.1)
== END | disposition home or self-care (01) ==
LOC: LABWHC1 16:09
PROVIDERS: ATTEND Urology
DX: Z01.812 Encounter for preprocedural laboratory examination (principal); N20.0 Calculus of kidney; R31.29 Other microscopic hematuria; Z79.899 Other long term (current) drug therapy
CPT/HCPCS: 36415; 80048; 81001; 85025

== ENCOUNTER → 2019-07-20 | Outpatient (CLI) | payer MEDICARE ==
--- NOTE | 2019-07-20 15:22 | XR ---
KUB HISTORY: Calculus of ureter Frontal KUB correlated to prior exam 07/05/2018 Double-J stent is present on the left overlying the left kidney distal aspect overlying the bladder. There is a calcification superimposed over the lower pole left kidney measuring 9 mm. Degenerative di sc changes are present in the visualized spine. Surgical clips are present over the left groin. Vascu lar calcification suspected within the pelvis. IMPRESSION: Interval stent placement. Calcification may migrated within the lower renal collecting sy stem on the left.
== END | disposition home or self-care (01) ==
LOC: RADXRMAIN 11:43
PROVIDERS: ATTEND Urology
DX: N28.89 Other specified disorders of kidney and ureter (principal)
CPT/HCPCS: 74018

== ENCOUNTER 2019-07-27 12:00 | Day surgery (SDC) | payer MEDICARE ==
[2019-07-22 11:15] VITALS: BMI 32.6
--- NOTE | 2019-07-27 06:28 | P.GSHP ---
History of Present Illness H&P Date: 07/27/19 79 yo male with a hitory of stones He had a 12 m prox ureteral stone on the the left that failed eswl I then did ureteroscopy and removed alot but a 5 mm fragmet remains in the llp A variety of options were discussed He comes for a repeat ureteoscopy to remove the remaining fragment - Constitutional Constitutional: Denies chills, Denies fever - EENT Eyes: denies blurred vision, denies pain Ears, nose, mouth and throat: Denies headache, Denies sore throat - Cardiovascular Cardiovascular: Denies chest pain, Denies shortness of breath - Respiratory Respiratory: Denies cough, Denies 7 - Gastrointestinal Gastrointestinal: Denies abdominal pain, Denies diarrhea, Denies nausea, Denies vomiting - Genitourinary (Female) Genitourinary: Denies dysuria, Denies hematuria - Genitourinary (Male) Genitourinary: Denies dysuria, Denies hematuria - Musculoskeletal Musculoskeletal: Denies myalgias - Integumentary Integumentary: Denies pruritus, Denies rash - Neurological Neurological: Denies numbness, Denies weakness - Psychiatric Psychiatric: Denies anxiety, Denies depression - Endocrine Endocrine: Denies fatigue, Denies weight change Past Medical History Past Medical History: Atrial Fibrillation, Cancer, COPD, GI Bleed, Hyperlipidemia, Hypertension, Osteoarthritis (OA), Prostate Disorder, Pulmonary Embolus (PE), Sleep Apnea/CPAP/BIPAP Additional Past Medical History / Comment(s): HX [place] Cell CA Lesion on buttocks. Ravi PE 2002 after knee surg. Legs weak R/T hx statins. Uses CPAP. Enlarged Prostate; Prostate Cancer, Hx Radiation, Now on Hormone inj [place]. Kidney Stone currently; on PO AB Rx x10 days. Lge cyst Lt Kidney. History of Any Multi-Drug Resistant Organisms: None Reported Past Surgical History: Ablation, Joint Replacement, Orthopedic Surgery, Tonsillectomy Additional Past Surgical History / Comment(s): RAVI. KNEE REPLACEMENT, CIRCUMCISION, HEMORRHOIDECTOMY, LEFT MIDDLE FINGER, RT AND LT KNEE ARTHROTOMY, CANCEROUS LESION REMOVED FROM BUTTOCKS, Cardiac Ablation x3. Exc Lesion Ureter 08/2018, than Radiation 39x for Prostate CA. Lithotripsy, Db J stent 07/06/19. Past Anesthesia/Blood Transfusion Reactions: Previous Problems w/ Anesthesia, Postoperative Nausea & Vomiting (PONV) Additional Past Anesthesia/Blood Transfusion Reaction / Comment(s): PONV in 1967, Occurred again 07/06/19 along w/ disorientation. Smoking Status: Never smoker - Past Family History Sister(s) Family Medical History: Cancer Additional Family Medical History / Comment(s): BREAST PRE CANCER Brother(s) Family Medical History: Deep Vein Thrombosis (DVT) Father Family Medical History: Cancer Additional Family Medical History / Comment(s): SKIN CANCER Medications and Allergies Home Medications Medication Instructions Recorded Confirmed Type Lisinopril 10 mg PO HS 06/28/15 07/22/19 History Metoprolol Tartrate [Lopressor] 150 mg PO BID 06/21/19 07/22/19 History Warfarin Sodium 5 mg PO SUTUTHSA #0 06/23/19 07/22/19 Rx Warfarin Sodium [Coumadin] 7.5 mg PO MOWEFR #0 06/23/19 07/22/19 Rx Acetaminophen-Codeine 300-30mg 1 tab PO Q6H PRN #10 tablet 06/28/19 07/22/19 Rx [Tylenol w/codeine #3] Albuterol Inhaler [Ventolin Hfa 1 - 2 puff INHALATION RT-Q6H PRN 07/05/19 07/22/19 History Inhaler] Albuterol Nebulized [Ventolin 2.5 mg INHALATION DIRECTED PRN 07/05/19 07/22/19 History Nebulized] Tamsulosin [Flomax] 0.4 mg PO BID 07/05/19 07/22/19 History Ondansetron [Zofran] 4 mg PO Q8HR PRN 3 Days #9 tab 07/07/19 07/22/19 Rx Sulfamethoxazole/Trimethoprim 1 each PO BID 07/22/19 07/22/19 History [Bactrim DS 800-160 mg] amLODIPine [Norvasc] 2.5 mg PO BID 07/22/19 07/22/19 History Allergies Allergy/AdvReac Type Severity Reaction Status Date / Time flecainide Allergy severe Verified 07/22/19 10:42 weakness morphine Allergy Hallucinations/FELT Verified 07/22/19 10:42 LIKE BUGS CRAWLING" oxycodone Allergy Nausea Verified 07/22/19 10:42 pentazocine lactate Allergy Nausea & Verified 07/22/19 10:42 [From Kristopher] Vomiting Zvnsfdh-Tiz-Uvm Reductase AdvReac severe Verified 07/22/19 10:42 Inhibitor muscle cramps & pain Surgical - Exam - General well developed, well nourished, no distress - Eyes PERRL - ENT no hearing loss - Neck trachea midline - Respiratory normal expansion, normal respiratory effort - Cardiovascular Rhythm: regular - Abdomen Abdomen: soft, non tender - Genitourinary normal penis with no external lesions, testicles present - Integumentary no rash, no growths - Neurologic normal coordination, normal sensation - Musculoskeletal normal gait, normal posture - Psychiatric oriented to person, oriented to place, speech is normal, memory intact Assessment and Plan Assessment: Impression: Left renal stone Plan: Left ureteroscopy with laser lithotripsy
[~2019-07-27 12:00] MED LIST changes: +LACTATED RINGERS 1,000 ML IV SCH; +LIDOCAINE 1% 20 ML VIAL (10MG/ML) FOR IV START INTRADERMA PRN; +ONDANSETRON 4 MG/2 ML VIAL IVP ONE; +ONDANSETRON 4 MG/2 ML VIAL IVP PRN; -Pre Op ABX Message 1 EACH MISC MISCELLANE ONE; +fentaNYL (PF) 50 MCG/ML 2 ML AMP IV PRN
--- NOTE | 2019-07-27 12:29 | XR ---
KUB HISTORY: Left ureteral stone, preop Frontal KUB and 2 images correlated to prior exam 07/20/2019 There is no interval change present. IMPRESSION: Stable exam. Calcification overlying the lower pole the left kidney and left double-J ure teral stent are stable.
[2019-07-27] MEDS ORDERED: DEXAMETHASONE SOD PHOSPHATE 10 MG/ML 1 ML VIAL IV ONE (12:53)
[2019-07-27 13:12] LABS: INR 1.1 (<1.2)
[2019-07-27] MEDS ORDERED: fentaNYL (PF) 50 MCG/ML 2 ML AMP ONE (13:21)
[2019-07-27] MEDS ORDERED: LIDOCAINE 1% INJ 10MG/ML (20 ML MDV) ONE (13:21)
[2019-07-27] MEDS ORDERED: MIDAZOLAM 2 MG/2 ML VIAL ONE (13:21)
[2019-07-27] MEDS ORDERED: PROPOFOL 10 MG/ML 20 ML VIAL IV ONE (13:21)
[2019-07-27 14:30] VITALS: TEMP 97
--- NOTE | 2019-07-27 14:33 | P.OP ---
Date of Procedure: 07/27/19 Preoperative Diagnosis: Left renal stone Postoperative Diagnosis: Same Procedure(s) Performed: Cystoscopy, removal double-J catheter left, left ureteroscopy with laser lithotripsy and stone basketing. Anesthesia: ROSENDO Surgeon: Aldair Carrasquillo Estimated Blood Loss (ml): 0 Pathology: other (Stone) Condition: stable Disposition: PACU Indications for Procedure: The patient is 79. He had a 12-13 mm proximal ureteral stone treated with shockwave lithotripsy. It did not fracture. I then did ureteroscopy and remove part of a but part of the stone migrated into an anterior lower pole calyx that I was unable to access at that time. The double-J catheters placed. He comes for a second look ureteroscopy laser lithotripsy Description of Procedure: The patient is brought to the operating suite. He is given a successful general endotracheal anesthesia. He's placed lithotomy position with sterile prep and drape. Fluoroscopy shows a stent and the stone in the lower pole calyx on the left side. Cystoscopy Foroblique lens and 22-Y[place] sheath identifies a normal urethra. The prostate is not obstructing. There is a small middle lobe. Upon entering the bladder the double-J catheters identified. It is grasped and pulled to the urethral meatus. Through the catheter and 035 wires passed up into the renal pelvis. The catheters removed. Over the catheters passed a 41-71-Jotqkh reentry sheath under fluoroscopy. The inner sheath is removed. I passed the flexible scope up into the collecting system. I examined the upper middle pole was there's no stone. I passed in the lower pole calyx and fortunately stone was dropped into a posterior calyx that that I can see it. With the 200 laser probe and her up to 6 W of energy the stone was broken into several pieces. The pieces are grasped with the don't basketed and removed from the kidney. At the end of the procedure I looked throughout the kidney and see nothing other than sand. Do a pullout ureteroscopy through the stent and see no remaining stone or damage to the ureter. The ureteroscope was removed. I then performed cystoscopy and identify no abnormalities the bladder. The bladder strain the patient's awake and returned recovery room good condition. He tolerated the procedure well be discharged home upon recovery and found the office in one week.
--- NOTE | 2019-07-27 14:42 | FL ---
Fluoroscopy HISTORY: Kidney stone removal 28 seconds fluoroscopy time supplied to the referring clinician. 2 intraoperative C-arm images docum ent the procedure. See dictated report from urology.
[2019-07-27 14:43] VITALS: RESP 16
[2019-07-27 15:56] VITALS: PULSE 76
[2019-07-27 16:34] VITALS: BP 151/93
== END 2019-07-27 16:20 | disposition home or self-care (01) ==
LOC: OR 12:00
PROVIDERS: ATTEND Urology
DX: I48.91 Unspecified atrial fibrillation (principal); N20.2 Calculus of kidney with calculus of ureter; J44.9 Chronic obstructive pulmonary disease, unspecified; E78.5 Hyperlipidemia, unspecified; I10 Essential (primary) hypertension; M19.90 Unspecified osteoarthritis, unspecified site; Z99.89 Dependence on other enabling machines and devices; Z85.46 Personal history of malignant neoplasm of prostate; Z86.711 Personal history of pulmonary embolism; Z85.821 Personal history of Merkel cell carcinoma; Z92.3 Personal history of irradiation; Z96.653 Presence of artificial knee joint, bilateral; Z80.8 Family history of malignant neoplasm of other organs or systems; Z79.899 Other long term (current) drug therapy; Z79.01 Long term (current) use of anticoagulants; Z88.5 Allergy status to narcotic agent; Z88.8 Allergy status to other drugs, medicaments and biological substances
CPT/HCPCS: 52353; 84132; 85610; 82365; 74018; C1769; C1894; J2250; J1100; J2405; J0690; J2001; J3010; J2704

== ENCOUNTER 2020-01-17 00:30 | Emergency (ER) | payer MEDICARE ==
[2020-01-17] MEDS ORDERED: HYDROmorphone 1 MG/ML 1 ML SYRINGE IM STA ×2 (01:20→02:21)
--- NOTE | 2020-01-17 01:42 | XR ---
EXAMINATION TYPE: XR wrist complete LT DATE OF EXAM: 01/17/2020 COMPARISON: NONE HISTORY: Wrist pain TECHNIQUE: 4 views FINDINGS: There is narrowing of the radiocarpal joint space. There is narrowing of the first carpomet acarpal joint space. I see no fracture nor dislocation. Metacarpals are intact. IMPRESSION: Osteoarthritis. No fracture seen.
[2020-01-17] MEDS ORDERED: predniSONE 20 MG TAB PO STA (02:21)
[2020-01-17] MEDS ORDERED: ACET/COD 300 MG/30 MG STARTER PACK 6 TAB BTL PO STA (03:43)
--- NOTE | 2020-01-17 03:51 | ED ---
Extremity Problem HPI - General Chief complaint: Extremity Problem,Nontraumatic Stated complaint: L Wrist Pain Time Seen by Provider: 01/17/20 00:51 Source: patient Mode of arrival: wheelchair Limitations: no limitations - History of Present Illness Initial comments: This patient is an 79-year-old man who presents to be evaluated for swelling and pain of the left wrist. He states that this had started approximately 20 hours prior to coming in. Over the day prior, the patient had done a lot of heavy lifting, including an 80 pound bag of salt for a water softener. The patient denies any traumatic injury to the wrist. He has not had any symptoms associated with the pain or swelling area he is not having fever or chills. No redness or heat. He denies any weakness or loss of sensation. MD Complaint: joint swelling, joint pain Onset/Timin -: days(s) Location: left, other (Wrist) History of Same: No -: Yes arthralgia Radiation: none Quality: aching Consistency: constant Improves with: nothing Worsens with: other Associated Symptoms: denies other symptoms - Related Data Home Medications Medication Instructions Recorded Confirmed Lisinopril 10 mg PO HS 06/28/15 07/27/19 Metoprolol Tartrate [Lopressor] 150 mg PO BID 06/21/19 07/27/19 Albuterol Inhaler [Ventolin Hfa 1 - 2 puff INHALATION RT-Q6H PRN 07/05/19 07/27/19 Inhaler] Albuterol Nebulized [Ventolin 2.5 mg INHALATION DIRECTED PRN 07/05/19 07/27/19 Nebulized] Tamsulosin [Flomax] 0.4 mg PO BID 07/05/19 07/27/19 Sulfamethoxazole/Trimethoprim 1 each PO BID 07/22/19 07/27/19 [Bactrim DS 800-160 mg] amLODIPine [Norvasc] 2.5 mg PO BID 07/22/19 07/27/19 Previous Rx's Medication Instructions Recorded Warfarin Sodium 5 mg PO SUTUTHSA #0 06/23/19 Warfarin Sodium [Coumadin] 7.5 mg PO MOWEFR #0 06/23/19 Acetaminophen-Codeine 300-30mg 1 tab PO Q6H PRN #10 tablet 06/28/19 [Tylenol w/codeine #3] Ondansetron [Zofran] 4 mg PO Q8HR PRN 3 Days #9 tab 07/07/19 Hydrocodone/Acetaminophen [[place] 1 each PO Q6HR PRN #20 tab 01/17/20 5-325] predniSONE 60 mg PO DAILY #30 tab 01/17/20 Allergies Allergy/AdvReac Type Severity Reaction Status Date / Time flecainide Allergy severe Verified 01/17/20 00:32 weakness morphine Allergy Hallucinations/FELT Verified 01/17/20 00:32 LIKE BUGS CRAWLING" oxycodone Allergy Nausea Verified 01/17/20 00:32 pentazocine lactate Allergy Nausea & Verified 01/17/20 00:32 [From Kristopher] Vomiting Nynfygr-Ffc-Kbc Reductase AdvReac severe Verified 01/17/20 00:32 Inhibitor muscle cramps & pain Review of Systems ROS Statement: Those systems with pertinent positive or pertinent negative responses have been documented in the HPI. ROS Other: All systems not noted in ROS Statement are negative. Constitutional: Denies: fever, chills, weakness Respiratory: Denies: cough, dyspnea Cardiovascular: Denies: chest pain Musculoskeletal: Reports: arthralgia Skin: Denies: rash, lesions Neurological: Denies: weakness, numbness, paresthesias Past Medical History Past Medical History: Atrial Fibrillation, Cancer, COPD, GI Bleed, Hyperlipidemia, Hypertension, Osteoarthritis (OA), Prostate Disorder, Pulmonary Embolus (PE), Sleep Apnea/CPAP/BIPAP Additional Past Medical History / Comment(s): HX [place] Cell CA Lesion on buttocks. Gael PE 2002 after knee surg. Legs weak R/T hx statins. Uses CPAP. Enlarged Prostate; Prostate Cancer, Hx Radiation, Now on Hormone inj [place]. Kidney Stone currently; on PO AB Rx x10 days. Lge cyst Lt Kidney. History of Any Multi-Drug Resistant Organisms: None Reported Past Surgical History: Ablation, Joint Replacement, Orthopedic Surgery, Tonsillectomy Additional Past Surgical History / Comment(s): GAEL. KNEE REPLACEMENT, CIRCUMCISION, HEMORRHOIDECTOMY, LEFT MIDDLE FINGER, RT AND LT KNEE ARTHROTOMY, CANCEROUS LESION REMOVED FROM BUTTOCKS, Cardiac Ablation x3. Exc Lesion Ureter 08/2018, than Radiation 39x for Prostate CA. Lithotripsy, Db J stent 07/06/19. Past Anesthesia/Blood Transfusion Reactions: Previous Problems w/ Anesthesia, Postoperative Nausea & Vomiting (PONV) Additional Past Anesthesia/Blood Transfusion Reaction / Comment(s): PONV in 1967, Occurred again 07/06/19 along w/ disorientation. Past Psychological History: No Psychological Hx Reported Smoking Status: Never smoker - Past Family History Sister(s) Family Medical History: Cancer Additional Family Medical History / Comment(s): BREAST PRE CANCER Brother(s) Family Medical History: Deep Vein Thrombosis (DVT) Father Family Medical History: Cancer Additional Family Medical History / Comment(s): SKIN CANCER General Exam Limitations: no limitations General appearance: alert, in no apparent distress Head exam: Present: atraumatic, normocephalic Neck exam: Present: full ROM. Absent: tenderness Respiratory exam: Present: normal lung sounds bilaterally. Absent: respiratory distress, wheezes, rales, rhonchi, stridor Cardiovascular Exam: Present: irregular rhythm, normal heart sounds. Absent: systolic murmur, diastolic murmur, rubs, gallop Left Shoulder Exam: Present: normal inspection, full ROM Upper Arm exam: Present: normal inspection, full ROM Elbow exam: Present: normal inspection, full ROM Hand Wrist exam: Present: tenderness, swelling. Absent: abrasion, laceration, ecchymosis, deformity, crepitus, dislocation, erythema, amputation Vascular: Present: normal capillary refill. Absent: vascular compromise Neurological exam: Present: alert. Absent: motor sensory deficit Skin exam: Present: warm, dry, intact, normal color. Absent: rash Course Vital Signs 01/17/20 01/17/20 01/17/20 00:32 00:48 02:00 Temperature 98.2 F Pulse Rate 139 H 130 H 100 Respiratory 22 18 16 Rate Blood Pressure 196/117 141/100 124/94 O2 Sat by Pulse 97 94 L 93 L Oximetry 01/17/20 03:00 Temperature Pulse Rate 97 Respiratory 16 Rate Blood Pressure O2 Sat by Pulse 95 Oximetry Medical Decision Making - Medical Decision Making Patient is an 79-year-old man with left wrist arthralgia. On the exam there is no erythema, warmth, or any other findings suggestive of infection. Further history reveals that he did have an upper extremity arthralgia a few years ago, was seen at at orthopedics and rheumatology and was given a course of steroids t hat resolved things. He does not recall the diagnosis. Discussed appropriate further care and follow-up with the patient including return parameters. Disposition Clinical Impression: Arthralgia of wrist, left Disposition: HOME SELF-CARE Condition: Good Instructions (If sedation given, give patient instructions): Arthralgia (ED) Prescriptions: Hydrocodone/Acetaminophen [[place] 5-325] 1 each PO Q6HR PRN #20 tab PRN Reason: Pain predniSONE 60 mg PO DAILY #30 tab Is patient prescribed a controlled substance at d/c from ED?: Yes Referrals: Fred Becker III, MD [Primary Care Provider] - 1-2 days Doroteo Mosqueda MD [STAFF PHYSICIAN] - 1-2 days
[2020-01-17 04:09] VITALS: BP 128/94; PULSE 112; RESP 18; TEMP 97.9
== END 2020-01-17 04:00 | disposition home or self-care (01) ==
LOC: EC 00:30
DX: M25.532 Pain in left wrist (principal); M79.89 Other specified soft tissue disorders; I10 Essential (primary) hypertension; J44.9 Chronic obstructive pulmonary disease, unspecified; M19.90 Unspecified osteoarthritis, unspecified site; G47.30 Sleep apnea, unspecified; N40.0 Benign prostatic hyperplasia without lower urinary tract symptoms; Z79.51 Long term (current) use of inhaled steroids; Z79.899 Other long term (current) drug therapy; Z88.8 Allergy status to other drugs, medicaments and biological substances; Z88.5 Allergy status to narcotic agent; Z86.711 Personal history of pulmonary embolism; Z85.828 Personal history of other malignant neoplasm of skin; Z99.89 Dependence on other enabling machines and devices; Z85.46 Personal history of malignant neoplasm of prostate; Z92.3 Personal history of irradiation; Z96.653 Presence of artificial knee joint, bilateral; Z98.890 Other specified postprocedural states
CPT/HCPCS: 73110; 96372 ×2; 99284; J1170; J7512

== ENCOUNTER → 2020-05-16 | Outpatient (CLI) | payer MEDICARE | END | disposition home or self-care (01) | LOC: LABWHC1 12:47 | PROVIDERS: ATTEND Radiology Radiation Oncology | DX: C61 Malignant neoplasm of prostate (principal); Z92.3 Personal history of irradiation; Z85.821 Personal history of Merkel cell carcinoma | CPT/HCPCS: 36415; 84153 ==

== ENCOUNTER → 2020-11-15 | Outpatient (CLI) | payer MEDICARE | END | disposition home or self-care (01) | LOC: LABWHC1 15:25 | PROVIDERS: ATTEND Radiology Radiation Oncology | DX: C61 Malignant neoplasm of prostate (principal); Z92.3 Personal history of irradiation; Z85.821 Personal history of Merkel cell carcinoma | CPT/HCPCS: 36415; 84153 ==

== ENCOUNTER → 2021-02-05 | Outpatient (CLI) | payer MEDICARE | END | disposition home or self-care (01) | LOC: LABWHC1 14:09 | PROVIDERS: ATTEND Urology | DX: C61 Malignant neoplasm of prostate (principal) | CPT/HCPCS: 36415; 84153 ==

== ENCOUNTER → 2021-08-20 | Outpatient (CLI) | payer MEDICARE | END | disposition home or self-care (01) | LOC: LABWHC1 13:41 | PROVIDERS: ATTEND Urology | DX: C61 Malignant neoplasm of prostate (principal) | CPT/HCPCS: 36415; 84153 ==

== ENCOUNTER → 2022-05-20 | Outpatient (CLI) | payer MEDICARE | END | disposition home or self-care (01) | LOC: LABWHC1 13:17 | PROVIDERS: ATTEND Radiology Radiation Oncology | DX: C61 Malignant neoplasm of prostate (principal); Z08 Encounter for follow-up examination after completed treatment for malignant neoplasm; Z85.46 Personal history of malignant neoplasm of prostate; Z92.3 Personal history of irradiation; Z85.821 Personal history of Merkel cell carcinoma | CPT/HCPCS: 36415; 84153 ==

== ENCOUNTER → 2022-08-16 | Outpatient (CLI) | payer MEDICARE | END | disposition home or self-care (01) | LOC: LABWHC1 15:20 | PROVIDERS: ATTEND Urology | DX: N40.1 Benign prostatic hyperplasia with lower urinary tract symptoms (principal) | CPT/HCPCS: 36415; 84153 ==

== ENCOUNTER → 2023-02-21 | Outpatient (CLI) | payer MEDICARE | END | disposition home or self-care (01) | LOC: LABWHC1 16:18 | PROVIDERS: ATTEND Internal Medicine Hematology & Oncology | DX: C61 Malignant neoplasm of prostate (principal) | CPT/HCPCS: 36415; 84153 ==

== ENCOUNTER → 2023-08-28 | Outpatient (CLI) | payer MEDICARE | END | disposition home or self-care (01) | LOC: LABWHC1 15:09 | PROVIDERS: ATTEND Urology | DX: C61 Malignant neoplasm of prostate (principal) | CPT/HCPCS: 36415; 84153 ==

== ENCOUNTER → 2024-05-19 | Outpatient (CLI) | payer MEDICARE | END | disposition home or self-care (01) | LOC: LABWHC1 16:01 | PROVIDERS: ATTEND Radiology Radiation Oncology | DX: Z08 Encounter for follow-up examination after completed treatment for malignant neoplasm (principal); Z85.46 Personal history of malignant neoplasm of prostate; Z92.3 Personal history of irradiation; Z85.821 Personal history of Merkel cell carcinoma | CPT/HCPCS: 36415; 84153 ==

== ENCOUNTER → 2024-09-23 | Outpatient (CLI) | payer MEDICARE | END | disposition home or self-care (01) | LOC: LABWHC1 12:38 | PROVIDERS: ATTEND Urology | DX: C61 Malignant neoplasm of prostate (principal) | CPT/HCPCS: 36415; 84153 ==